=== PATIENT | male | born 1945 | race Caucasian/White ===

== ENCOUNTER → 2018-05-12 11:57 | Outpatient (CLI) | payer MEDICARE, OTHER, SELFPAY ==
--- NOTE | 2018-05-12 12:01 | DI.RAD.S_ITS ---
PROCEDURE: XR LUMBAR SPINE MIN 4V INDICATIONS: hip pain TECHNIQUE: 5 views of the lumbar spine were acquired. COMPARISON: None. FINDINGS: Bones: 5 nonrib-bearing vertebrae are present. There is normal bony alignment. No vertebral body compression fractures. No suspicious bony lesions. There is degenerative disc disease, moderate at L3-L4 and L4-L5, mild at other levels. There is moderate to severe facet arthropathy at L3-L4 and L4-L5 and L5-S1. Soft tissues: Overlying bowel gas pattern is normal. Extensive vascular calcifications consistent with atherosclerosis. Oblique images: No pars defects. IMPRESSION: 1. Degenerative disc and facet disease as described. 2. Severe atherosclerosis. Dictated by: Ankita Friedman M.D. on 05/12/2018 at 18:23 Approved by: Ankita Friedman M.D. on 05/12/2018 at 18:27
--- NOTE | 2018-05-12 12:01 | DI.RAD.S_ITS ---
PROCEDURE: XR HIP W PEL IF DONE RT 2V INDICATIONS: hip pain TECHNIQUE: AP pelvis with lateral view(s) of the right hip(s). COMPARISON: None. FINDINGS: Bones: No fractures or dislocations. Pelvic ring appears intact. There is mild, symmetric bilateral hip and sacroiliac joint degeneration. Moderate degenerative disc disease in the lower lumbar spine. No suspicious bony lesions. Soft tissues: The visualized bowel gas pattern is normal. No suspicious soft tissue calcifications. IMPRESSION: 1. 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 2. Degenerative disc disease in the lower lumbar spine. Dictated by: Ankita Friedman M.D. on 05/12/2018 at 17:33 Approved by: Ankita Friedman M.D. on 05/12/2018 at 17:35
== END ==
PROVIDERS: Family Provider Family Medicine; PCP Family Medicine; Visit Provider Family Medicine
DX: M16.0 Bilateral primary osteoarthritis of hip (principal); M51.36 Other intervertebral disc degeneration, lumbar region; M47.898 Other spondylosis, sacral and sacrococcygeal region; M25.551 Pain in right hip
CPT/HCPCS: 72110; 73502

== ENCOUNTER → 2018-05-31 08:05 | Outpatient (CLI) | payer MEDICARE, OTHER, SELFPAY ==
--- NOTE | 2018-05-31 08:07 | DI.CT.S_ITS ---
PROCEDURE: CT LUMBAR SPINE WO CON INDICATIONS: Right hip pain and instability TECHNIQUE: Noncontrast 3 mm thick sections acquired from the T12 level to the sacrum. Sagittal and coronal reformats were constructed. For radiation dose reduction, the following was used: automated exposure control. COMPARISON: [facility], CR, XR LUMBAR SPINE MIN 4V, 05/12/2018, 11:42. FINDINGS: Image quality: Excellent. Bones: There is mild retrolisthesis at L5-S1, otherwise normal bony alignment. No acute vertebral body compression fractures. No suspicious lytic or blastic bony lesions. Central spinal caliber is of normal overall caliber. No pars defects. Postoperative changes of remote left L5-S1 hemilaminotomy. T12-L1: Normal appearance L1-L2: Normal appearance L2-L3: Broad-based annular bulge. Bilateral facet arthropathy and ligamentous thickening, the combination creating moderate central canal stenosis, central diameter of the thecal sac and 9.2 mm. Mild bilateral foraminal stenosis. L3-L4: Broad-based annular bulge. Bilateral facet arthropathy with ligamentous thickening. The combination creates a moderate central canal stenosis, thecal sac at 6.7 mm. There is moderate bilateral foraminal stenosis. L4-L5: Disc degeneration with broad-based annular bulge. Bilateral facet arthropathy and ligamentous thickening. This creates a mild central canal stenosis with thecal sac measuring 11.1 mm. There is moderate left and mild right foraminal stenosis. L5-S1: Disc degeneration and mild retrolisthesis, left laminotomy decompressing the Central canal. No recurrent disc protrusion is seen. No compromise of the right S1 nerve root. There is mild deformity of the left S1 nerve root as it exits the thecal sac. Bilateral facet arthropathy. Mild bony stenosis of the nerve root canals bilaterally. Soft tissues: No retroperitoneal masses or hematomas. Visualized aorta is heavily calcified but normal in caliber. The partially visualized calculus in the upper pole of the left kidney. IMPRESSION: 1. Multilevel disc degeneration and annular bulging. Multilevel facet arthropathy with ligamentous thickening. Left laminotomy defect L5-S1. 2. Moderate central canal stenosis, L3-4 greater than L2-3. 3. Moderate foraminal stenosis is present bilaterally at L3-4 and on the left at L4-5. There appears to be mild bony encroachment on the left S1 nerve root. 4. Left nephrolithiasis. 5. Atherosclerosis. Dictated by: Edgardo Mccrary M.D. on 05/31/2018 at 8:48 Approved by: Edgardo Mccrary M.D. on 05/31/2018 at 9:06
== END ==
PROVIDERS: Family Provider Family Medicine; PCP Family Medicine; Visit Provider Family Medicine
DX: M25.551 Pain in right hip (principal); M25.351 Other instability, right hip; M51.36 Other intervertebral disc degeneration, lumbar region; M51.37 Other intervertebral disc degeneration, lumbosacral region; M47.816 Spondylosis without myelopathy or radiculopathy, lumbar region; M48.061 Spinal stenosis, lumbar region without neurogenic claudication; N20.0 Calculus of kidney; I70.0 Atherosclerosis of aorta
CPT/HCPCS: 72131

== ENCOUNTER → 2018-06-21 07:49 | Outpatient (CLI) | payer MEDICARE, OTHER, SELFPAY ==
[2018-06-21 09:10] LABS: Blood Urea Nitrogen 20 mg/dL (9-20); Calcium 9.8 mg/dL (8.4-10.2); Carbon Dioxide 28 mmol/L (22-32); Chloride 99 mmol/L (98-107); Estimated Glomerular Filt Rate > 60.0 mL/min (>60); Glucose 234 mg/dL (80-110); HEMOLYSIS < 15 (0-50); Magnesium 2.1 mg/dL (1.6-2.3); Potassium 4.5 mmol/L (3.4-5.1); Sodium 140 mmol/L (137-145)
== END ==
PROVIDERS: Family Provider Family Medicine; PCP Family Medicine; Visit Provider Internal Medicine Cardiovascular Disease
DX: I47.2 Ventricular tachycardia (principal)
CPT/HCPCS: 36415; 80048; 83735; 84443

== ENCOUNTER → 2018-12-23 09:43 | Outpatient (CLI) | payer MEDICARE, OTHER, SELFPAY ==
[2018-12-23 11:27] LABS: BUN Creatinine Ratio 17.3 (6-22); Blood Urea Nitrogen 19 mg/dL (9-20); Calcium 10.1 mg/dL (8.4-10.2); Carbon Dioxide 30 mmol/L (22-32); Chloride 99 mmol/L (98-107); Estimated Glomerular Filt Rate > 60.0 mL/min (>60); Glucose 147 mg/dL (80-110); HEMOLYSIS < 15 (0-50); Magnesium 2.1 mg/dL (1.6-2.3); Potassium 4.7 mmol/L (3.4-5.1); Sodium 139 mmol/L (137-145)
[2018-12-23 11:50] LABS: Thyroid Stimulating Hormone 1.63 uIU/mL (0.47-4.68)
== END ==
PROVIDERS: Family Provider Family Medicine; PCP Family Medicine; Visit Provider Internal Medicine Cardiovascular Disease
DX: I48.0 Paroxysmal atrial fibrillation (principal)
CPT/HCPCS: 36415; 80048; 83735; 84443

== ENCOUNTER 2019-03-09 08:30 | Outpatient (RCR) | payer MEDICARE, OTHER, SELFPAY | END 2019-03-13 15:00 | LOC: CAR 08:30 | PROVIDERS: Family Provider Family Medicine; PCP Family Medicine; Visit Provider Thoracic Surgery (Cardiothoracic Vascular Surgery) | DX: Z95.2 Presence of prosthetic heart valve (principal) | CPT/HCPCS: 93798 ==

== ENCOUNTER → 2019-08-04 08:25 | Outpatient (CLI) | payer MEDICARE, OTHER, SELFPAY ==
[2019-08-04 09:12] LABS: Add Manual Diff / Slide Review NO; Basophils Absolute Auto 100 /uL (0-100); Basophils Percent Auto 0.6 % (0-2); Eosinophils Absolute Auto 100 /uL (0-450); Eosinophils Percent Auto 0.6 % (2-4); Hematocrit 42.9 % (41-53); Hemoglobin 14.7 g/dL (13.5-17.5); Lymphocytes Absolute Auto 1600 /uL (1100-4500); Lymphocytes Percent Auto 17.3 % (25-40); Mean Corpuscular HGB Conc 34.4 % (30-36); Mean Corpuscular Hemoglobin 30.7 PG (26-34); Mean Corpuscular Volume 89.4 fL (80-100); Monocytes Absolute Auto 1000 /uL (0-900); Monocytes Percent Auto 11.5 % (3-14); Neutrophils Absolute Auto 6400 /uL (1500-7000); Platelet Count 138 X10^3/uL (150-400); Red Cell Distribution Width 14.5 % (11.6-14.8); White Blood Cell Count 9.1 X10^3/uL (4.5-11.0)
[2019-08-04 09:24] LABS: Cholesterol 124 mg/dL (140-199); HDL Cholesterol 38 mg/dL (40-60); LDL Cholesterol Calculated 48 mg/dL (<100); Triglycerides 192 mg/dL (35-150)
[2019-08-04 09:55] LABS: Prostate Specific Antigen Scrn 1.44 ng/mL (0.1-4.0)
== END ==
PROVIDERS: PCP Family Medicine; Visit Provider Family Medicine
DX: Z12.5 Encounter for screening for malignant neoplasm of prostate (principal); E78.5 Hyperlipidemia, unspecified; I10 Essential (primary) hypertension; I25.10 Atherosclerotic heart disease of native coronary artery without angina pectoris
CPT/HCPCS: 36415; 80061; 85025; G0103

== ENCOUNTER 2019-08-22 11:26 | Emergency (ER) | payer MEDICARE, OTHER, SELFPAY ==
[2019-08-22 11:31] VITALS: BP 157/85; PULSE 60; RESP 16; TEMP 36.4; O2SAT 99; BMI 29.9
--- NOTE | 2019-08-22 12:21 | ED.EPISTAXIS ---
HPI - Epistaxis <AYO Zapien - Last Filed: 08/22/19 15:34> General Chief complaint: Nasal Problem Stated complaint: nose bleed Time Seen by Provider: 08/22/19 11:37 Source: patient Mode of arrival: Ambulatory Limitations: no limitations History of Present Illness HPI Narrative: This is a 74-year-old gentleman, nonsmoker, who presents to ED with his spouse with resolved nontraumatic epistaxis which started at 8:45 a.m. this morning. Patient reports epistaxis started after he dabbed on his nose and he has been bleeding slowly. When patient arrived to ED shortly after 11:00 a.m., the nosebleed has already stopped. Patient states after he had blew his nose and got rid of large clots, the nose bleed finally stopped. He did not use direct pressure at this time. Patient has been on Eliquis 90 mg since 2017 due to his OR and cardiac surgeries. Patient is not taking any other anticoagulants or antiplatelets. Patient had lab test done on 08/04/19 and it showed mildly decreased platelet counts of 138. Patient denies chest pain, breathing difficulty, nausea, dizziness and swallowing blood from nose bleed. Related Data Home Medications Medication Instructions Recorded Confirmed multivitamin 1 cap PO DAILY #0 07/30/11 08/22/19 rosuvastatin [Crestor] 20 mg PO DAILY #0 03/16/12 08/22/19 Brilinta 90 mg PO BID #0 05/22/17 08/22/19 apixaban 5 mg tablet 5 mg PO BID 08/21/19 08/22/19 lisinopril 10 mg tablet 10 mg PO BID 08/21/19 08/22/19 NITROGLYCERIN (#NITROSTAT) 0.4 mg SUBLINGUAL PRN 08/22/19 08/22/19 chlorthalidone 12.5 mg PO Q OTHER DAY 08/22/19 08/22/19 fluorouracil 1 applic TOPICAL BID 08/22/19 08/22/19 magnesium 1 tab PO DAILY 08/22/19 08/22/19 metoprolol succinate 25 mg PO DAILY 08/22/19 08/22/19 Previous Rx's Medication Instructions Recorded adjuvant AS01B (PF)vial 1 of 2 0.5 ml IM .COMPLEX #0.5 ml 09/09/19 Allergies Allergy/AdvReac Type Severity Reaction Status Date / Time clopidogrel [From PLAVIX] Allergy Severe hosipitaliz Verified 08/22/19 11:31 ation procaine [PROCAINE] Allergy Mild NUMBNESS Verified 08/22/19 11:31 WILL NOT WEAR OFF PER PATIENT Review of Systems <AYO Zapien - Last Filed: 08/22/19 15:34> Review of Systems Narrative: General: Denies fever, chills, fatigue, malaise, sweats. HEENT: See HPI Respiratory: Denies dyspnea, cough, wheezing, hemoptysis, sputum. Cardiovascular: Denies chest pain, palpitations, orthopnea, edema. Gastrointestinal: Denies nausea, vomiting, abdominal pain, diarrhea, constipation, melena. : Denies dysuria, frequency, incontinence, hematuria, urinary retention. Musculoskeletal: Denies weakness, joint pain or bony pain. Skin: Denies rash, skin lesions, or other. Neurologic: Denies weakness, headache, numbness, change in speech, confusion, seizures, incoordination. Psychiatric: No concerning psychosocial issues. 12-point review of systems is negative except for those stated above. Patient History <AYO Zapien - Last Filed: 08/22/19 15:34> Social History Smoking Status: Never smoker Exam <AYO Zapien - Last Filed: 08/22/19 15:34> Narrative Exam Narrative: General appearance: well developed, well nourished, in no acute distress. Head: normocephalic, atraumatic, no scalp lesions, non-tender. Eye: pupil equal, round. EOMI. Oral: mucosa moist. Neck/Thyroid: neck supple, full range of motion, no visible masses. Skin: no suspicious rashes, lesions over visible areas. Warm and dry. Heart: no clubbing, no cyanosis, no edema. Lungs: Breathing even and unlabored. No stridor. No accessory muscles used. Chest: normal shape and expansion. Abdomen: non-obese, non-distended. Neurologic: alert and oriented. Cognitive exam, INTEGRATION [employer]GER and PNS grossly intact on informal exam. Psych: good eye contact, normal affect. Initial Vital Signs Initial Vital Signs: Vital Signs Temperature 97.5 F L 08/22/19 11:31 Pulse Rate 60 08/22/19 11:31 Respiratory Rate 16 08/22/19 11:31 Blood Pressure 157/85 H 08/22/19 11:31 Pulse Oximetry 99 08/22/19 11:31 HENMT Nose: external nose normal, nares normal, septum normal, epistaxis (Resolved. Small blood clots noted on right nares at 06 o'clock) and No nasal discharge <Neal Mosqueda DO - Last Filed: 08/22/19 15:46> Initial Vital Signs Initial Vital Signs: Vital Signs Temperature 97.5 F L 08/22/19 11:31 Pulse Rate 60 08/22/19 11:31 Respiratory Rate 16 08/22/19 11:31 Blood Pressure 157/85 H 08/22/19 11:31 Pulse Oximetry 99 08/22/19 11:31 Procedures <[facility] - Last Filed: 08/22/19 15:34> Epistaxis Control Time Out Performed: Yes Nostril: right Nose Prepped With: oxymetazoline Direct Inspection: yes and anterior source identified Clots Removed by: blowing nose Cautery Used: silver nitrate Patient Tolerated Procedure: well Complications: other (none) Scores <Uriel MYNOR BoxP - Last Filed: 08/22/19 15:34> GCS [place] coma scale eye opening: Spontaneous [place] coma scale verbal response: Orientated [place] coma scale motor response: Obey commands [place] coma scale total score: 15 Course <[facility] [place] Last Filed: 08/22/19 15:34> Orders Ordered: ED Orders 08/22/19 12:40 CBC Auto Diff [Complete Blood Count AUTO DIFF] Stat Discontinued Medications Oxymetazoline HCl (Afrin) 2 sprays NASAL NOW ONE Stop: 08/22/19 13:08 Last Admin: 08/22/19 13:19 Dose: 2 sprays Documented by: JOSE Silver Nitrate/Potassium Nitrate (Silver Nitrate Stick) 1 each TOP NOW ONE Stop: 08/22/19 13:15 Last Admin: 08/22/19 13:45 Dose: 1 each Documented by: JOSE Vital Signs Vital signs: Vital Signs - 8 hr 08/22/19 11:31 08/22/19 14:18 Temperature 97.5 F L Pulse Rate 60 58 L Respiratory Rate 16 18 Blood Pressure 157/85 H Blood Pressure [Right Arm] 162/73 H Pulse Oximetry 99 96 <Neal Mosqueda DO - Last Filed: 08/22/19 15:46> Orders Ordered: ED Orders 08/22/19 12:40 CBC Auto Diff [Complete Blood Count AUTO DIFF] Stat Discontinued Medications Oxymetazoline HCl (Afrin) 2 sprays NASAL NOW ONE Stop: 08/22/19 13:08 Last Admin: 08/22/19 13:19 Dose: 2 sprays Documented by: JOSE Silver Nitrate/Potassium Nitrate (Silver Nitrate Stick) 1 each TOP NOW ONE Stop: 08/22/19 13:15 Last Admin: 08/22/19 13:45 Dose: 1 each Documented by: JOSE Vital Signs Vital signs: Vital Signs - 8 hr 08/22/19 11:31 08/22/19 14:18 Temperature 97.5 F L Pulse Rate 60 58 L Respiratory Rate 16 18 Blood Pressure 157/85 H Blood Pressure [Right Arm] 162/73 H Pulse Oximetry 99 96 MDM - Epistaxis <AYO Zapien - Last Filed: 08/22/19 15:34> Differential Diagnosis Differential diagnosis: Likely anterior epistaxis Medical Records Attestation: I reviewed the patient's medical records. Lab Data Attestation: I reviewed the patient's lab results. Result diagrams: 08/22/19 12:40 Labs: Lab Results 08/22/19 Range/Units 12:40 WBC 8.2 (4.5-11.0) X10^3/uL RBC 4.50 (4.5-5.9) X10^6/uL Hgb 14.0 (13.5-17.5) g/dL Hct 39.9 L (41-53) % MCV 88.7 (80-100) fL MCH 31.1 (26-34) PG MCHC 35.0 (30-36) % RDW 13.6 (11.6-14.8) % Plt Count 138 L (150-400) X10^3/uL Neut % (Auto) 64.7 (50-75) % Lymph % (Auto) 22.9 L (25-40) % [place] % (Auto) 10.6 (3-14) % Eos % (Auto) 0.7 L (2-4) % Baso % (Auto) 1.1 (0-2) % Neut # (Auto) 5300 (8825-9605) /uL Lymph # (Auto) 1900 (9991-8710) /uL [place] # (Auto) 900 (0-900) /uL Eos # (Auto) 100 (0-450) /uL Baso # (Auto) 100 (0-100) /uL MDM Narrative Medical decision making narrative: This is a 74-year-old gentleman who presents to ED with right nares nontraumatic epistaxis which started at 8:45 a.m. this morning. Patient takes Brilinta and Eliquis daily after MIs, stents, aortic valve replacement. When patient was initially evaluated, the bleeding had resolved spontaneously. However, and patient was about to discharge to home and re-evaluated, patient had recurring very slow nose bleed. Nose bleed had controlled with silver nitrate and Afrin. Please see procedural note. Patient tolerated the procedure well and no further nose bleed noticed post 30 minutes. CBC shows stable H&H but slightly decreased platelet of 138 which has not changed from 2 weeks ago. Discussed how to stop nose bleed at home and verbalized understanding. Return precautions were discussed with patient and spouse and agrees with treatment plan. <Neal Mosqueda, DO - Last Filed: 08/22/19 15:46> Lab Data Labs: Lab Results 08/22/19 Range/Units 12:40 WBC 8.2 (4.5-11.0) X10^3/uL RBC 4.50 (4.5-5.9) X10^6/uL Hgb 14.0 (13.5-17.5) g/dL Hct 39.9 L (41-53) % MCV 88.7 (80-100) fL MCH 31.1 (26-34) PG MCHC 35.0 (30-36) % RDW 13.6 (11.6-14.8) % Plt Count 138 L (150-400) X10^3/uL Neut % (Auto) 64.7 (50-75) % Lymph % (Auto) 22.9 L (25-40) % [place] % (Auto) 10.6 (3-14) % Eos % (Auto) 0.7 L (2-4) % Baso % (Auto) 1.1 (0-2) % Neut # (Auto) 5300 (1881-8387) /uL Lymph # (Auto) 1900 (4555-2948) /uL [place] # (Auto) 900 (0-900) /uL Eos # (Auto) 100 (0-450) /uL Baso # (Auto) 100 (0-100) /uL Discharge Plan Departure Patient Disposition: Home Clinical Impression: Epistaxis not due to trauma Discharge Date/Time: 08/22/19 14:30 Instructions: DI for Nosebleed Activity Restrictions/Additional Instructions: You have been diagnosed with [resolved nose bleed on anticoagulants Brilinta and Eliquis. If nosebleed recurs, blow your nose 1st to remove the clots, then put direct pressure for about 30-60 minutes. If you do have Afrin, you can use 2 sprays before applying the pressure. Do not use over 72 hrs of Afrin. The blood count today looks good and there's no change in platelets]. What to do: *Take your medications as directed. *Follow up with your primary care provider in 2-3 days, call for an appointment. Let them know you were seen in the ED and that we asked you to be seen in follow up. *Return to ED if you have any new, worsening, or concerning symptoms, such as [recurring severe nosebleed, chest pain, breathing difficulty, unable to tolerate fluids, or any acute concerns]. Prescriptions: No Action multivitamin Capsule 1 cap PO DAILY Qty: 0 RF: 0 rosuvastatin [Crestor] 20 MG tablet 20 mg PO DAILY Qty: 0 RF: 0 Brilinta 90 MG tablet 90 mg PO BID Qty: 0 RF: 0 Shingrix Adjuvant Component-PF suspension 0.5 ml IM .COMPLEX Qty: 0.5 RF: 0 Eliquis 5 mg tablet 5 mg PO BID RF: 0 lisinopril 10 mg tablet 10 mg PO BID RF: 0 magnesium 1 tab PO DAILY RF: 0 fluorouracil 5 % Cream 1 applic TOPICAL BID RF: 0 chlorthalidone 25 mg Tablet 12.5 mg PO Q OTHER DAY RF: 0 metoprolol succinate 25 mg Tablet Extended Release 24 Hr 25 mg PO DAILY RF: 0 NITROGLYCERIN (#NITROSTAT) 0.4 mg Sublingual PRN RF: 0 Referrals: Yonis Unger MD [Primary Care Provider] - <Neal Mosqueda DO - Last Filed: 08/22/19 15:46> Sign Out Provider Sign Out Attestation: Dr Mosqueda Co-Sign Statement: I was available for consultation during this patient's emergency department visit. This chart is signed by myself for administrative purposes only. I did not have direct contact with this patient during this visit. They were seen independently by the APC.
[2019-08-22 12:50] LABS: Add Manual Diff / Slide Review NO; Basophils Absolute Auto 100 /uL (0-100); Basophils Percent Auto 1.1 % (0-2); Eosinophils Absolute Auto 100 /uL (0-450); Eosinophils Percent Auto 0.7 % (2-4); Hematocrit 39.9 % (41-53); Lymphocytes Absolute Auto 1900 /uL (1100-4500); Lymphocytes Percent Auto 22.9 % (25-40); Mean Corpuscular Hemoglobin 31.1 PG (26-34); Mean Corpuscular Volume 88.7 fL (80-100); Monocytes Absolute Auto 900 /uL (0-900); Monocytes Percent Auto 10.6 % (3-14); Neutrophils Absolute Auto 5300 /uL (1500-7000); Neutrophils Percent Auto 64.7 % (50-75); Platelet Count 138 X10^3/uL (150-400); Red Cell Distribution Width 13.6 % (11.6-14.8); White Blood Cell Count 8.2 X10^3/uL (4.5-11.0)
[2019-08-22] MEDS: OXYMETAZOLINE NASAL SPRAY 30 ML 2 SPRAYS NASAL (13:19)
[2019-08-22] MEDS: SILVER NITRATE STICK 1 EACH TOP (13:45)
[2019-08-22 14:18] VITALS: BP 162/73; PULSE 58; RESP 18; O2SAT 96
== END 2019-08-22 14:30 | disposition home or self-care (01) ==
PROVIDERS: Emergency Provider Nurse Practitioner Family; PCP Family Medicine
DX: R04.0 Epistaxis (principal)
CPT/HCPCS: 30901; 36415; 85025; 99282; 99283

== ENCOUNTER → 2020-05-24 08:26 | Outpatient (CLI) | payer MEDICARE, OTHER, SELFPAY ==
[2020-05-24 09:42] LABS: Add Manual Diff / Slide Review NO; Basophils Absolute Auto 100 /uL (0-100); Basophils Percent Auto 0.7 % (0-2); Eosinophils Absolute Auto 100 /uL (0-450); Eosinophils Percent Auto 0.9 % (2-4); Hematocrit 41.4 % (41-53); Hemoglobin 14.3 g/dL (13.5-17.5); Lymphocytes Absolute Auto 1800 /uL (1100-4500); Lymphocytes Percent Auto 24.6 % (25-40); Mean Corpuscular HGB Conc 34.5 % (30-36); Mean Corpuscular Hemoglobin 30.7 PG (26-34); Monocytes Absolute Auto 700 /uL (0-900); Neutrophils Absolute Auto 4600 /uL (1500-7000); Neutrophils Percent Auto 63.8 % (50-75); Platelet Count 146 X10^3/uL (150-400); Red Blood Cell Count 4.65 X10^6/uL (4.5-5.9); Red Cell Distribution Width 13.8 % (11.6-14.8); White Blood Cell Count 7.3 X10^3/uL (4.5-11.0)
[2020-05-24 10:01] LABS: BUN Creatinine Ratio 21.4 (6-22); Blood Urea Nitrogen 21 mg/dL (9-20); Carbon Dioxide 31 mmol/L (22-32); Chloride 102 mmol/L (98-107); Estimated Glomerular Filt Rate > 60.0 mL/min (>60); Glucose 117 mg/dL (80-110); HEMOLYSIS < 15 (0-50); Potassium 4.9 mmol/L (3.4-5.1); Sodium 139 mmol/L (137-145)
[2020-05-24 10:21] LABS: Alanine Aminotransferase 46 IU/L (<50); Albumin 4.7 g/dL (3.5-5.0); Alkaline Phosphatase 63 U/L (38-126); Aspartate Aminotransferase 36 IU/L (17-59); Bilirubin Total 0.8 mg/dL (0.2-1.3); Bilirubin Unconjugated 0.7 mg/dL (0.0-1.1); Cholesterol 127 mg/dL (140-199); Globulin 2.3 g/dL (1.7-4.1); HDL Cholesterol 39 mg/dL (40-60); HEMOLYSIS < 15 (0-50); LDL Cholesterol Calculated 40 mg/dL (<100); Triglycerides 241 mg/dL (35-150)
== END ==
PROVIDERS: Nurse Practitioner; PCP Family Medicine
DX: I35.1 Nonrheumatic aortic (valve) insufficiency (principal); I35.0 Nonrheumatic aortic (valve) stenosis; Z95.2 Presence of prosthetic heart valve; E78.5 Hyperlipidemia, unspecified; I25.10 Atherosclerotic heart disease of native coronary artery without angina pectoris
CPT/HCPCS: 36415; 80048; 80061; 80076; 85025

== ENCOUNTER → 2020-06-15 09:40 | Outpatient (CLI) | payer MEDICARE, OTHER, SELFPAY ==
[2020-06-16 18:55] LABS: COVID19 Sendout Not Detected (Not Detect)
== END ==
PROVIDERS: PCP Family Medicine; Visit Provider Nurse Practitioner
DX: Z11.59 Encounter for screening for other viral diseases (principal)
CPT/HCPCS: 87635

== ENCOUNTER 2020-06-18 07:45 | Day surgery (SDC) | payer MEDICARE, OTHER, SELFPAY ==
[2020-06-18] MEDS: PROPARACAINE 0.5% OPHTH SOL 2 DROPS EYE-OP (09:10)
[2020-06-18 09:14] VITALS: BP 159/67; PULSE 61; RESP 16; TEMP 36.2; O2SAT 98; BMI 28.7
[2020-06-18] MEDS: CATARACT EYE COMPOUND (10 DROPS/SYRINGE) 3 DROPS EYE-OP (09:25)
--- NOTE | 2020-06-18 09:43 | P.OP_ITS ---
Operative Date/Time/Diagnoses Pre-op diagnosis: Nuclear Cataract Left eye Post-op diagnosis: same Procedure & Clinicians Same procedure as scheduled: Yes Surgeon: Tato Gayle Anesthesia Type: MAC +/- and Sedation Operative Notes Procedure in detail: Patient brought to the operating suite. Tetracaine drops placed in the left eye. Patient was prepped and draped in sterile manner. Wire lid speculum was placed in the eye. Betadine drops were placed on the eye. This was irrigated. Lidocaine jelly was placed on the eye. A paracentesis port was created with a side-port blade. 0.1 mL 1% preservative free lidocaine was injected into the anterior chamber. The anterior chamber was deepened with viscoelastic. 2.6 mm keratome was used to create a temporal clear corneal incision. Cystotome and Utrata forceps were used to create continuous tear capsulorrhexis. Balanced salt solution was used to hydro dissect the nucleus. The phacoemulsification handpiece was inserted and the nucleus was removed using the stop and chop technique. The irrigation aspiration handpiece was inserted and the remaining cortex was removed. Anterior chamber was deepened with viscoe lastic. An Shukla ZCB00 intraocular lens with a power of 19.0 was injected into the capsular bag. Irrigation aspiration handpiece was inserted and the remaining viscoelastic was removed. Incision was hydrated with balanced salt solution and found to be leak free with pressure with Weck-Paula sponges. 0.1 mL Vigamox injected anterior chamber. 0.3 mL Kenalog 10 mg was injected subconjunctivally. Lid speculum was removed. The patient left the operating room in excellent condition. Complications: none Post-operative Condition: stable Disposition: same day surgery
--- NOTE | 2020-06-18 09:43 | PM.PREOP ---
Pre-operative Note Interval Note History & Physical reviewed/Exam performed by Physician: Yes Changes to H&P: No
[2020-06-18] MEDS: MOXIFLOXACIN INJ 5 MG/ML VIAL EYE-OP (10:11)
[2020-06-18] MEDS: PHENYLEPHRINE/LIDOCAINE VIAL (OR) 0.2 ML EYE-OP (10:11)
[2020-06-18] MEDS: LIDOCAINE JELLY 2% 5 ML 1 APPLIC TOP (10:12)
[2020-06-18] MEDS: CHONDROIDTIN/SOD HYALURONATE 1.05 ML SYRINGE INTRAOCULA (10:12)
[2020-06-18] MEDS: TETRACAINE 0.5% OPHTH DROPS 4 ML 2 DROPS EYE-OP (10:12)
[2020-06-18] MEDS: TRIAMCINOLONE 50 MG/5 ML VIAL INJ (10:12)
[2020-06-18] MEDS: BALANCED SALT IRRIG SOLN NO.2 500 ML, EPINEPHrine 1 MG IRR (10:13)
[2020-06-18 10:30] VITALS: BP 109/70; PULSE 60; RESP 16; TEMP 36.4; O2SAT 99
== END 2020-06-18 10:45 | disposition home or self-care (01) ==
PROVIDERS: PCP Family Medicine; Referring Provider Ophthalmology; Visit Provider Ophthalmology
PROC: (CPT 66984; principal; 2020-06-18 09:45)
DX: H25.12 Age-related nuclear cataract, left eye (principal); I10 Essential (primary) hypertension; Z95.0 Presence of cardiac pacemaker; I25.10 Atherosclerotic heart disease of native coronary artery without angina pectoris; Z95.1 Presence of aortocoronary bypass graft
CPT/HCPCS: 66984; J0171; J2250; J3010; J3301

== ENCOUNTER 2021-03-03 19:09 | Emergency (ER) | payer MEDICARE, OTHER, SELFPAY ==
[2021-03-03 19:14] VITALS: BP 156/69; PULSE 66; RESP 20; TEMP 38.1; O2SAT 98; BMI 27.6
[2021-03-03 20:01] VITALS: PULSE 67; O2SAT 96
[2021-03-03] MEDS: ACETAMINOPHEN 325 MG TABLET 650 MG PO (20:06)
[2021-03-03 20:30] VITALS: BP 137/89; PULSE 64; RESP 20; O2SAT 99
[2021-03-03 20:59] LABS: COVID19 -Nasal RAPID Negative (Negative)
[2021-03-03 21:18] VITALS: TEMP 36.9
[2021-03-03 21:20] LABS: Bacteria Urine None Seen
[2021-03-03 21:28] LABS: INR 1.4 (0.9-1.3); Prothrombin Time 16.1 SECONDS (10.1-12.7)
[2021-03-03 21:29] LABS: Add Manual Diff / Slide Review NO; Basophils Absolute Auto 0 /uL (0-100); Basophils Percent Auto 0.3 % (0-2); Eosinophils Absolute Auto 0 /uL (0-450); Eosinophils Percent Auto 0.5 % (2-4); Hematocrit 30.6 % (41-53); Hemoglobin 10.4 g/dL (13.5-17.5); Lymphocytes Absolute Auto 600 /uL (1100-4500); Lymphocytes Percent Auto 7.7 % (25-40); Mean Corpuscular HGB Conc 34.1 % (30-36); Mean Corpuscular Hemoglobin 30.4 PG (26-34); Mean Corpuscular Volume 89.2 fL (80-100); Monocytes Absolute Auto 900 /uL (0-900); Monocytes Percent Auto 10.5 % (3-14); Neutrophils Absolute Auto 6800 /uL (1500-7000); Platelet Count 182 X10^3/uL (150-400); Red Blood Cell Count 3.43 X10^6/uL (4.5-5.9); Red Cell Distribution Width 15.2 % (11.6-14.8); White Blood Cell Count 8.4 X10^3/uL (4.5-11.0)
[2021-03-03 21:31] LABS: PTT Partial Thromboplastin Tim 32 SECONDS (26.4-36.2)
[2021-03-03 21:33] LABS: Lactate (Lactic Acid) 1.5 mmol/L (0.7-2.1)
[2021-03-03 21:34] LABS: Alanine Aminotransferase 118 IU/L (<50); Albumin 3.7 g/dL (3.5-5.0); Albumin Globulin Ratio 1.2 (1.0-2.8); Alkaline Phosphatase 87 U/L (38-126); Aspartate Aminotransferase 69 IU/L (17-59); BUN Creatinine Ratio 25.5 (6-22); Bilirubin Total 0.4 mg/dL (0.2-1.3); Blood Urea Nitrogen 25 mg/dL (9-20); Calcium 9.3 mg/dL (8.4-10.2); Carbon Dioxide 28 mmol/L (22-32); Chloride 98 mmol/L (98-107); Estimated Glomerular Filt Rate > 60.0 mL/min (>60); Glucose 115 mg/dL (80-110); HEMOLYSIS < 15 (0-50); Lipase 131 U/L (23-300); Potassium 4.5 mmol/L (3.4-5.1); Sodium 133 mmol/L (137-145); Total Protein 6.7 g/dL (6.3-8.2)
[2021-03-03 21:35] LABS: Appearance Urine UA CLEAR; Bilirubin Urine UA NEGATIVE (NEGATIVE); Color Urine UA YELLOW; Glucose Urine UA NEGATIVE (Negative); Ketones Urine UA NEGATIVE (NEGATIVE); Leukocyte Esterase Urine UA NEGATIVE (NEGATIVE); Nitrite Urine UA NEGATIVE (Negative); Occult Blood Urine UA 1+ (Negative); Protein Urine UA NEGATIVE (Negative); Specific Gravity Urine UA 1.025 (1.000-1.035); Urobilinogen Urine UA 0.2 E.U./dL (0.2); pH Urine UA 5.5 (4.5-8.0)
[2021-03-03 21:51] LABS: Procalcitonin 0.31 ng/mL (<0.5)
[2021-03-03 21:57] LABS: Adenovirus Not Detected (Not Detect); B. parapertussis Not Detected (Not Detecte); Bordetella pertussis Not Detected (Not Detecte); Chlamydophila pneumoniae Not Detected (Not Detect); Coronavirus 229E Not Detected (Not Detect); Coronavirus HKU1 Not Detected (Not Detect); Coronavirus NL 63 Not Detected (Not Detect); Coronavirus OC43 Not Detected (Not Detect); Human Metapneumovirus Not Detected (Not Detect); Human Rhinovirus/Enterovirus Not Detected (Not Detect); Influenza A Not Detected (Not Detect); Influenza B Not Detected (Not Detect); Mycoplasma pneumoniae Not Detected (Not Detect); Parainfluenza Virus 1 Not Detected (Not Detect); Parainfluenza Virus 2 Not Detected (Not Detect); Parainfluenza Virus 3 Not Detected (Not Detect); Parainfluenza Virus 4 Not Detected (Not Detect); Respiratory Syncytial Virus Not Detected (Not Detect); SARS- CoV-2 Not Detected (Not Detecte)
[2021-03-03 22:02] LABS: Culture Indicated Urine Cult Not Indicated; RBC Urine 1-5/HPF (0-5/HPF); Sperm Urine FEW; WBC Urine 0-1/HPF (0-5/HPF)
--- NOTE | 2021-03-03 22:20 | ED.FEVER ---
HPI - Fever General Chief Complaint: Upper Respiratory Symptoms Stated Complaint: Fever, Tired, Congestion, Cough, Chills Time Seen by Provider: 03/03/21 21:44 Source: patient and old records reviewed Mode of arrival: Ambulatory Limitations: no limitations History of Present Illness HPI Narrative: This is a 75-year-old male who has had about a month of symptoms, initially start with some headaches he was treated for sinus infection with antibiotics. He has continued to have some mild headaches but he states they are quite mild. He has had increasing sleep, decreased appetite, lost about 10 lb over the last couple weeks. Had some mild congestion and cough he has had a little bit of productive sputum. Patient has not had any diaphoresis. He has not any chest pain or pressure, no shortness of breath. No abdominal pain. No dysuria, urgency or frequency. He is not appreciate any changes such as diarrhea, bright red blood or melena. He is not appreciate any rash or skin changes. He states that there is a test to check for infection pending such as valley fever patient was seen at the walk-in clinic and sent for evaluation here. History significant for TAVR placed in 2019 a pacer in 2018. He has had a melanoma excised on his in 2018 and has cardiac stents. His only allergies are Plavix. No tobacco, occasional alcohol with no illicit. He divides his time between [place] and here locally in [place]. Patient does have a follow-up on March 14 with his primary care. His family notes that he they were told he was anemic on his last doctor's visit. Patient is slightly requesting to leave. Related Data Home Medications Medication Instructions Recorded Confirmed multivitamin 1 cap PO DAILY #0 07/30/11 03/03/21 rosuvastatin [Crestor] 20 mg PO DAILY #0 03/16/12 03/03/21 Brilinta 90 mg PO BID #0 05/22/17 03/03/21 apixaban 5 mg tablet 5 mg PO BID 08/21/19 03/03/21 lisinopril 10 mg tablet 10 mg PO BID 08/21/19 03/03/21 NITROGLYCERIN (#NITROSTAT) 0.4 mg SUBLINGUAL PRN 08/22/19 03/03/21 chlorthalidone 12.5 mg PO Q OTHER DAY 08/22/19 03/03/21 fluorouracil 1 applic TOPICAL BID 08/22/19 03/03/21 magnesium 1 tab PO DAILY 08/22/19 03/03/21 metoprolol succinate 25 mg PO DAILY 08/22/19 03/03/21 furosemide [Lasix] 20 mg PO DAILY 06/18/20 03/03/21 Previous Rx's Medication Instructions Recorded adjuvant AS01B (PF)vial 1 of 2 0.5 ml IM .COMPLEX #0.5 ml 07/03/19 Allergies Allergy/AdvReac Type Severity Reaction Status Date / Time clopidogrel [From PLAVIX] Allergy Severe hosipitaliz Verified 03/03/21 09:44 ation procaine [PROCAINE] Allergy Mild NUMBNESS Verified 03/03/21 09:44 WILL NOT WEAR OFF PER PATIENT Review of Systems Review of Systems ROS Unobtainable: All systems reviewed & are unremarkable except as noted in HPI and below Patient History Social History household members: spouse Smoking Status: Former smoker alcohol intake: current Smoking Status: Former smoker alcohol intake frequency: a few times a week Substance Use Type: does not use Exam Narrative Exam Narrative: GENERAL: Alert and oriented x three, well-nourished male in mild distress. HEENT: Head normocephalic, atraumatic, EOMI, pupils reactive, face symmetric, moist mucous membranes, no meningeal changes. NECK: Supple, full range of motion, no meningeal signs CARDIOVASCULAR: Regular rate and rhythm without murmurs, rubs or gallops. RESPIRATORY: Breath sounds equal bilaterally, no wheezes rales or rhonchi. ABDOMEN: Soft, nontender. Normoactive bowel sounds all 4 quadrants. No guarding or rebound, rigidity, no mass : No CVA tenderness BACK: No cervical, thoracic or lumbar vertebral point tenderness. EXTREMITIES: Normal range of motion of all 4 extremities, no clubbing or edema. Neurovascularly intact NEUROLOGICAL: Cranial nerves II through XII grossly intact. Moving all extremities. Normal gait. SKIN: Warm, dry, no petechiae, no rashes or lesions. Initial Vital Signs Initial Vital Signs: Vital Signs Temperature 100.5 F H 03/03/21 19:14 Pulse Rate 66 03/03/21 19:14 Respiratory Rate 20 03/03/21 19:14 Blood Pressure 156/69 H 03/03/21 19:14 Pulse Oximetry 98 03/03/21 19:14 Scores GCS Magness coma scale eye opening: Spontaneous Magness coma scale verbal response: Orientated Magness coma scale motor response: Obey commands Magness coma scale total score: 15 Course Orders Ordered: Discontinued Medications Acetaminophen (Acetaminophen 325 Mg Tablet) 650 mg PO NOW ONE Stop: 03/03/21 19:52 Last Admin: 03/03/21 20:06 Dose: 650 mg Documented by: LYNDA Vital Signs Vital signs: Vital Signs - 8 hr 03/03/21 23:20 Temperature 97.6 F Pulse Rate 60 Respiratory Rate 18 Blood Pressure 137/89 Pulse Oximetry 100 MDM - Fever Lab Data Attestation: I reviewed the patient's lab results. Result diagrams: 03/03/21 20:50 03/03/21 20:50 Labs: Lab Results 03/03/21 03/03/21 03/03/21 Range/Units 19:21 19:58 20:50 WBC 8.4 (4.5-11.0) X10^3/uL RBC 3.43 L (4.5-5.9) X10^6/uL Hgb 10.4 L (13.5-17.5) g/dL Hct 30.6 L (41-53) % MCV 89.2 (80-100) fL MCH 30.4 (26-34) PG MCHC 34.1 (30-36) % RDW 15.2 H (11.6-14.8) % Plt Count 182 (150-400) X10^3/uL Neut % (Auto) 81.0 H (50-75) % Lymph % (Auto) 7.7 L (25-40) % [place] % (Auto) 10.5 (3-14) % Eos % (Auto) 0.5 L (2-4) % Baso % (Auto) 0.3 (0-2) % Neut # (Auto) 6800 (4084-3184) /uL Lymph # (Auto) 600 L (2962-5688) /uL [place] # (Auto) 900 (0-900) /uL Eos # (Auto) 0 (0-450) /uL Baso # (Auto) 0 (0-100) /uL PT (10.1-12.7) SECONDS INR (0.9-1.3) APTT (26.4-36.2) SECONDS Sodium (137-145) mmol/L Potassium (3.4-5.1) mmol/L Chloride (98-107) mmol/L Carbon Dioxide (22-32) mmol/L BUN (9-20) mg/dL Creatinine (0.66-1.25) mg/dL Estimated GFR (>60) mL/min BUN/Creatinine Ratio (6-22) Glucose (80-110) mg/dL Lactate (0.7-2.1) mmol/L Calcium (8.4-10.2) mg/dL Total Bilirubin (0.2-1.3) mg/dL AST (17-59) IU/L ALT (<50) IU/L Alkaline Phosphatase (38-126) U/L Total Protein (6.3-8.2) g/dL Albumin (3.5-5.0) g/dL Globulin (1.7-4.1) g/dL Albumin/Globulin Ratio (1.0-2.8) Lipase (23-300) U/L Procalcitonin (<0.5) ng/mL Urine Color Urine Appearance Urine pH (4.5-8.0) Ur Specific [place] (1.000-1.035) Urine Protein (Negative) Urine Glucose (UA) (Negative) g/dL Urine Ketones (NEGATIVE) Urine Occult Blood (Negative) Urine Nitrate (Negative) Urine Bilirubin (NEGATIVE) Urine Urobilinogen (0.2) E.U./dL Ur Leukocyte Esterase (NEGATIVE) Urine RBC (0-5/HPF) Urine WBC (0-5/HPF) Urine Bacteria (None) Urine Sperm Ur Culture Indicated? Chlamy pneumoniae PCR Not detected (Not Detect) Adenovirus (PCR) Not detected (Not Detect) B. pertussis DNA (PCR) Not detected (Not Detecte) B.parapertussis DNA PCR Not detected (Not Detecte) Coronavirus OC43 (PCR) Not detected (Not Detect) Coronavirus HKU1 (PCR) Not detected (Not Detect) Coronavirus 229E (PCR) Not detected (Not Detect) SARS-CoV-2 (PCR) Negative Not detected (Negative) Coronavirus NL63 (PCR) Not detected (Not Detect) Human Metapneumovir PCR Not detected (Not Detect) Influenza Type A (PCR) Not detected (Not Detect) Influenza Type B (PCR) Not detected (Not Detect) M. pneumoniae (PCR) Not detected (Not Detect) Parainfluenza 1 (PCR) Not detected (Not Detect) Parainfluenza 2 (PCR) Not detected (Not Detect) Parainfluenza 3 (PCR) Not detected (Not Detect) Parainfluenza 4 (PCR) Not detected (Not Detect) RSV (PCR) Not detected (Not Detect) Entero/Rhino (PCR) Not detected (Not Detect) 03/03/21 03/03/21 03/03/21 Range/Units 20:50 20:50 20:50 WBC (4.5-11.0) X10^3/uL RBC (4.5-5.9) X10^6/uL Hgb (13.5-17.5) g/dL Hct (41-53) % MCV (80-100) fL MCH (26-34) PG MCHC (30-36) % RDW (11.6-14.8) % Plt Count (150-400) X10^3/uL Neut % (Auto) (50-75) % Lymph % (Auto) (25-40) % [place] % (Auto) (3-14) % Eos % (Auto) (2-4) % Baso % (Auto) (0-2) % Neut # (Auto) (8062-2513) /uL Lymph # (Auto) (1683-6917) /uL [place] # (Auto) (0-900) /uL Eos # (Auto) (0-450) /uL Baso # (Auto) (0-100) /uL PT 16.1 H (10.1-12.7) SECONDS INR 1.4 H (0.9-1.3) APTT 32 (26.4-36.2) SECONDS Sodium 133 L (137-145) mmol/L Potassium 4.5 (3.4-5.1) mmol/L Chloride 98 (98-107) mmol/L Carbon Dioxide 28 (22-32) mmol/L BUN 25 H (9-20) mg/dL Creatinine 0.98 (0.66-1.25) mg/dL Estimated GFR > 60.0 (>60) mL/min BUN/Creatinine Ratio 25.5 H (6-22) Glucose 115 H (80-110) mg/dL Lactate 1.5 (0.7-2.1) mmol/L Calcium 9.3 (8.4-10.2) mg/dL Total Bilirubin 0.4 (0.2-1.3) mg/dL AST 69 H (17-59) IU/L ALT 118 H (<50) IU/L Alkaline Phosphatase 87 (38-126) U/L Total Protein 6.7 (6.3-8.2) g/dL Albumin 3.7 (3.5-5.0) g/dL Globulin 3.0 (1.7-4.1) g/dL Albumin/Globulin Ratio 1.2 (1.0-2.8) Lipase 131 (23-300) U/L Procalcitonin 0.31 (<0.5) ng/mL Urine Color Urine Appearance Urine pH (4.5-8.0) Ur Specific [place] (1.000-1.035) Urine Protein (Negative) Urine Glucose (UA) (Negative) g/dL Urine Ketones (NEGATIVE) Urine Occult Blood (Negative) Urine Nitrate (Negative) Urine Bilirubin (NEGATIVE) Urine Urobilinogen (0.2) E.U./dL Ur Leukocyte Esterase (NEGATIVE) Urine RBC (0-5/HPF) Urine WBC (0-5/HPF) Urine Bacteria (None) Urine Sperm Ur Culture Indicated? Chlamy pneumoniae PCR (Not Detect) Adenovirus (PCR) (Not Detect) B. pertussis DNA (PCR) (Not Detecte) B.parapertussis DNA PCR (Not Detecte) Coronavirus OC43 (PCR) (Not Detect) Coronavirus HKU1 (PCR) (Not Detect) Coronavirus 229E (PCR) (Not Detect) SARS-CoV-2 (PCR) (Negative) Coronavirus NL63 (PCR) (Not Detect) Human Metapneumovir PCR (Not Detect) Influenza Type A (PCR) (Not Detect) Influenza Type B (PCR) (Not Detect) M. pneumoniae (PCR) (Not Detect) Parainfluenza 1 (PCR) (Not Detect) Parainfluenza 2 (PCR) (Not Detect) Parainfluenza 3 (PCR) (Not Detect) Parainfluenza 4 (PCR) (Not Detect) RSV (PCR) (Not Detect) Entero/Rhino (PCR) (Not Detect) 03/03/21 Range/Units 21:17 WBC (4.5-11.0) X10^3/uL RBC (4.5-5.9) X10^6/uL Hgb (13.5-17.5) g/dL Hct (41-53) % MCV (80-100) fL MCH (26-34) PG MCHC (30-36) % RDW (11.6-14.8) % Plt Count (150-400) X10^3/uL Neut % (Auto) (50-75) % Lymph % (Auto) (25-40) % [place] % (Auto) (3-14) % Eos % (Auto) (2-4) % Baso % (Auto) (0-2) % Neut # (Auto) (4617-7811) /uL Lymph # (Auto) (6379-4947) /uL [place] # (Auto) (0-900) /uL Eos # (Auto) (0-450) /uL Baso # (Auto) (0-100) /uL PT (10.1-12.7) SECONDS INR (0.9-1.3) APTT (26.4-36.2) SECONDS Sodium (137-145) mmol/L Potassium (3.4-5.1) mmol/L Chloride (98-107) mmol/L Carbon Dioxide (22-32) mmol/L BUN (9-20) mg/dL Creatinine (0.66-1.25) mg/dL Estimated GFR (>60) mL/min BUN/Creatinine Ratio (6-22) Glucose (80-110) mg/dL Lactate (0.7-2.1) mmol/L Calcium (8.4-10.2) mg/dL Total Bilirubin (0.2-1.3) mg/dL AST (17-59) IU/L ALT (<50) IU/L Alkaline Phosphatase (38-126) U/L Total Protein (6.3-8.2) g/dL Albumin (3.5-5.0) g/dL Globulin (1.7-4.1) g/dL Albumin/Globulin Ratio (1.0-2.8) Lipase (23-300) U/L Procalcitonin (<0.5) ng/mL Urine Color Yellow Urine Appearance Clear Urine pH 5.5 (4.5-8.0) Ur Specific [place] 1.025 (1.000-1.035) Urine Protein Negative (Negative) Urine Glucose (UA) Negative (Negative) g/dL Urine Ketones Negative (NEGATIVE) Urine Occult Blood 1+ H (Negative) Urine Nitrate Negative (Negative) Urine Bilirubin Negative (NEGATIVE) Urine Urobilinogen 0.2 (0.2) E.U./dL Ur Leukocyte Esterase Negative (NEGATIVE) Urine RBC 1-5/hpf (0-5/HPF) Urine WBC 0-1/hpf (0-5/HPF) Urine Bacteria None seen (None) Urine Sperm Few Ur Culture Indicated? Cult not indicated Chlamy pneumoniae PCR (Not Detect) Adenovirus (PCR) (Not Detect) B. pertussis DNA (PCR) (Not Detecte) B.parapertussis DNA PCR (Not Detecte) Coronavirus OC43 (PCR) (Not Detect) Coronavirus HKU1 (PCR) (Not Detect) Coronavirus 229E (PCR) (Not Detect) SARS-CoV-2 (PCR) (Negative) Coronavirus NL63 (PCR) (Not Detect) Human Metapneumovir PCR (Not Detect) Influenza Type A (PCR) (Not Detect) Influenza Type B (PCR) (Not Detect) M. pneumoniae (PCR) (Not Detect) Parainfluenza 1 (PCR) (Not Detect) Parainfluenza 2 (PCR) (Not Detect) Parainfluenza 3 (PCR) (Not Detect) Parainfluenza 4 (PCR) (Not Detect) RSV (PCR) (Not Detect) Entero/Rhino (PCR) (Not Detect) Urine Dip Bedside Urine Glucose Negative Bedside Urine Bilirubin - Negative Bedside Urine Ketone - Negative Urine Specific [place] 1.030 Bedside Urine Occult Blood +/- Bedside Urine pH 6 Bedside Urine Protein - Negative Bedside Urine Urobilinogen - Negative Bedside Urine Nitrite - Negative Bedside Urine Leukocytes - Negative Esterase Imaging Data Chest x-ray: Radiologist's Impression: [address] [id number] ReportSigned Patient: Jesse Dietz RMR#: [id number]: 3Acct:[id number]/Sex: 75 / MDate of Service: 03/03/21Loc: LABAccession Number: [id number] Procedure: XR chest 2V Ordering Provider: Jeannette Schwab P.A-C PROCEDURE: XR CHEST 2V INDICATIONS: cough, weight, loss, fatigue, chills TECHNIQUE: 2 views of the chest were acquired. COMPARISON: [facility], CR, XR CHEST 2VW, 05/26/2017, 6:32. FINDINGS: Surgical changes and devices: Left chest wall dual lead cardiac pacer. Status post CABG procedure and aortic valve replacement. Lungs and pleura: Lungs are clear. No pleural effusions or pneumothorax. Mediastinum: Mediastinal contours are normal. Heart size is normal. Bones and chest wall: No suspicious bony abnormalities. Soft tissues appear unremarkable. IMPRESSION: No acute cardiopulmonary disease process. Dictated by: Steff Carranza MD, PhD on 03/03/2021 at 10:48 Approved by: Steff Carranza MD, PhD on 03/03/2021 at 10:49 ECG Data Attestation: I personally reviewed and interpreted this ECG as follows: Prior ECG tracings: available for review Interpretation: Atrial sensed, ventricular paced rhythm. Rate of 67 [place] 186 QRS of 182 and QTC of 477. MDM Narrative Medical decision making narrative: 75-year-old male who is had some cough, congestion chills and no 10 lb weight loss over several weeks with possible fevers. Patient has also had headache although he describes this as mild. He had a temperature of 101? F at home. Patient had chest x-ray it through Urgent Care which was negative, labs show anemia with a hemoglobin at 10. Patient and relates that he was told he was anemic in [place] as well. He was treated with for sinusitis with oral antibiotics with minimal improvement. He has not had any other clear changes in his labs hyponatremia, slightly elevated BUN and very mild elevation of AST, ALT with normal bilirubin, alk-phos and lipase. On examination no focal causes found for his symptoms. Blood blood cultures are pending and patient also has some additional outpatient labs pending. Patient would like to return home. He was encouraged follow-up with his physician as an appointment on the 14 of March and also encouraged to have a repeat hemoglobin as his priors from a year ago were normal range. Patient has not appreciated any GI symptoms such as diarrhea, melena or bright red blood. Discharge Plan Departure Patient Disposition: Home Clinical Impression: Anemia Activity Restrictions/Additional Instructions: I do not have a clear cause of your symptoms today. Your blood cultures are pending these typically result in 48 hours. You also have some additional chest pending that were ordered as an outpatient. Your hemoglobin does appear decreased today from a normal level. I would discuss with your physician and they may wish to have even EGD or colonoscopy for further evaluation. I would recommend having your hemoglobin rechecked in the next several days. Please return for fevers, severe headaches, altered mental status, new chest pain, shortness of breath, persistent vomiting, lightheadedness or passing out, new swelling rash, rashes skin changes or other new or concerning symptoms. Prescriptions: No Action multivitamin Capsule 1 cap PO DAILY Qty: 0 RF: 0 rosuvastatin [Crestor] 20 MG tablet 20 mg PO DAILY Qty: 0 RF: 0 Brilinta 90 MG tablet 90 mg PO BID Qty: 0 RF: 0 Shingrix Adjuvant Component-PF suspension 0.5 ml IM .COMPLEX Qty: 0.5 RF: 0 Eliquis 5 mg tablet 5 mg PO BID RF: 0 lisinopril 10 mg tablet 10 mg PO BID RF: 0 furosemide [Lasix] 20 mg Tablet 20 mg PO DAILY RF: 0 magnesium 1 tab PO DAILY RF: 0 fluorouracil 5 % Cream 1 applic TOPICAL BID RF: 0 chlorthalidone 25 mg Tablet 12.5 mg PO Q OTHER DAY RF: 0 metoprolol succinate 25 mg Tablet Extended Release 24 Hr 25 mg PO DAILY RF: 0 NITROGLYCERIN (#NITROSTAT) 0.4 mg Sublingual PRN RF: 0 Referrals: Sherri Waggoner MD [Primary Care Provider] -
[2021-03-03 23:20] VITALS: BP 137/89; PULSE 60; RESP 18; TEMP 36.4; O2SAT 100
[2021-03-04 19:19] LABS: Enterococcus species Not Detected (Not Detect); Listeria monocytogenes Not Detected (Not Detect); Staphylococcus species Not Detected (Not Detect)
[2021-03-04 19:20] LABS: Acinetobacter baumannii Not Detected (Not Detect); Candida albicans Not Detected (Not Detect); Candida glabrata Not Detected (Not Detect); Candida krusei Not Detected (Not Detect); E. coli Not Detected (Not Detect); Enterobacter cloacae complex Not Detected (Not Detect); Enterobacteriaceae species Not Detected (Not Detect); Haemophilus influenzae Not Detected (Not Detect); Neisseria meningitidis Not Detected (Not Detect); Proteus species Not Detected (Not Detect); Pseudomonas aeruginosa Not Detected (Not Detect); Serratia marcescens Not Detected (Not Detect); Streptococcus agalactiae (Gr B Not Detected (Not Detect); Streptococcus pneumonia Not Detected (Not Detect); Streptococcus pyogenes (Gr A) Not Detected (Not Detect)
[2021-03-04 19:21] LABS: Candida parapsilosis Not Detected (Not Detect); Candida tropicalis Not Detected (Not Detect)
[2021-03-04 19:23] LABS: Streptococcus species Detected (Not Detect)
== END 2021-03-03 23:21 | disposition home or self-care (01) ==
PROVIDERS: Emergency Provider Emergency Medicine; PCP Internal Medicine
DX: D64.9 Anemia, unspecified (principal); R51.9 Headache, unspecified; R05 Cough; R63.4 Abnormal weight loss; R79.89 Other specified abnormal findings of blood chemistry; Z20.822 Contact with and (suspected) exposure to COVID-19
CPT/HCPCS: 36415; 71046; 80053; 81001; 81003; 83605; 83690; 84145; 85025; 85610; 85730; 86635; 87040; 87150; 87186; 87205; 87633; 87635; 93005; 93010; 99284; C9803

== ENCOUNTER 2021-03-06 11:18 | Emergency (ER) | payer MEDICARE, OTHER, SELFPAY ==
[2021-03-06 11:25] VITALS: BP 118/57; PULSE 74; RESP 15; TEMP 36.7; O2SAT 98; BMI 27.1
[2021-03-06 12:18] LABS: Add Manual Diff / Slide Review NO; Basophils Absolute Auto 0 /uL (0-100); Basophils Percent Auto 0.4 % (0-2); Eosinophils Absolute Auto 0 /uL (0-450); Eosinophils Percent Auto 0.3 % (2-4); Hematocrit 32.2 % (41-53); Hemoglobin 10.8 g/dL (13.5-17.5); Lymphocytes Absolute Auto 800 /uL (1100-4500); Lymphocytes Percent Auto 8.9 % (25-40); Mean Corpuscular HGB Conc 33.7 % (30-36); Mean Corpuscular Hemoglobin 29.9 PG (26-34); Mean Corpuscular Volume 88.7 fL (80-100); Monocytes Absolute Auto 1100 /uL (0-900); Monocytes Percent Auto 12.7 % (3-14); Neutrophils Absolute Auto 7000 /uL (1500-7000); Neutrophils Percent Auto 77.7 % (50-75); Platelet Count 192 X10^3/uL (150-400); Red Blood Cell Count 3.63 X10^6/uL (4.5-5.9); Red Cell Distribution Width 15.6 % (11.6-14.8); White Blood Cell Count 9.1 X10^3/uL (4.5-11.0)
[2021-03-06 12:28] LABS: Alanine Aminotransferase 158 IU/L (<50); Albumin 3.8 g/dL (3.5-5.0); Albumin Globulin Ratio 1.3 (1.0-2.8); Alkaline Phosphatase 89 U/L (38-126); Aspartate Aminotransferase 96 IU/L (17-59); BUN Creatinine Ratio 17.1 (6-22); Bilirubin Total 0.5 mg/dL (0.2-1.3); Blood Urea Nitrogen 18 mg/dL (9-20); Calcium 9.4 mg/dL (8.4-10.2); Carbon Dioxide 30 mmol/L (22-32); Chloride 97 mmol/L (98-107); Estimated Glomerular Filt Rate > 60.0 mL/min (>60); Glucose 101 mg/dL (80-110); HEMOLYSIS < 15 (0-50); Lactate (Lactic Acid) 1.4 mmol/L (0.7-2.1); Potassium 4.7 mmol/L (3.4-5.1); Sodium 134 mmol/L (137-145); Total Protein 6.8 g/dL (6.3-8.2)
--- NOTE | 2021-03-06 12:39 | ED_ITS ---
HPI - Recheck/Abnormal Lab/Rx General Chief Complaint: Recheck/Abnormal Lab/Rx Stated Complaint: returning for addtl lab work after 03/03/21 visit Time Seen by Provider: 03/06/21 11:42 Source: patient Mode of arrival: Ambulatory Limitations: no limitations History of Present Illness HPI narrative: Patient is a 75-year-old male who presents as request from the emergency department with positive blood cultures. He was seen evaluated here 3 days ago for generalized weakness and some low-grade fevers. Blood cultures Streptococcus salivary from 03/03/21. He has had ongoing fatigue for number of weeks. Like states that since his emergency department visit he did have a low- grade fever yesterday but nothing today. He certainly had decreased appetite and lost over 10 lb in the last few weeks. He denies early CAD and just says he is not hungry food does not seem appetite icing to him. He has had some fever n o body aches or chills. He has generalized weakness. Found to have some mild anemia with out obvious blood loss. He has no abdominal pain no cough no chest pain no shortness of breath no painful urination. No rash. MD complaint: abnormal lab Related Data Home Medications Medication Instructions Recorded Confirmed multivitamin 1 cap PO DAILY #0 07/30/11 03/03/21 rosuvastatin [Crestor] 20 mg PO DAILY #0 03/16/12 03/03/21 Brilinta 90 mg PO BID #0 05/22/17 03/03/21 apixaban 5 mg tablet 5 mg PO BID 08/21/19 03/03/21 lisinopril 10 mg tablet 10 mg PO BID 08/21/19 03/03/21 NITROGLYCERIN (#NITROSTAT) 0.4 mg SUBLINGUAL PRN 08/22/19 03/03/21 chlorthalidone 12.5 mg PO Q OTHER DAY 08/22/19 03/03/21 fluorouracil 1 applic TOPICAL BID 08/22/19 03/03/21 magnesium 1 tab PO DAILY 08/22/19 03/03/21 metoprolol succinate 25 mg PO DAILY 08/22/19 03/03/21 furosemide [Lasix] 20 mg PO DAILY 06/18/20 03/03/21 Previous Rx's Medication Instructions Recorded adjuvant AS01B (PF)vial 1 of 2 0.5 ml IM .COMPLEX #0.5 ml 07/03/19 cefdinir 300 mg PO Q12H #20 cap 03/06/21 cefdinir 300 mg PO Q12H #20 cap 03/06/21 Allergies Allergy/AdvReac Type Severity Reaction Status Date / Time clopidogrel [From PLAVIX] Allergy Severe hosipitaliz Verified 03/06/21 11:30 ation procaine [PROCAINE] Allergy Mild NUMBNESS Verified 03/06/21 11:30 WILL NOT WEAR OFF PER PATIENT Review of Systems Review of Systems ROS Unobtainable: All systems reviewed & are unremarkable except as noted in HPI and below Constitutional Constitutional: Reports body ache(s), Reports fatigue, Reports fever(s), Denies frequent falls and Reports poor appetite ENT Ears, Nose, Mouth, and Throat: Denies dizziness Cardiovascular Cardiovascular: Denies chest pain, Denies irregular heart rhythm, Denies lightheadedness, Denies palpitations, Denies dyspnea, Denies dyspnea on exertion and Denies orthopnea Respiratory Respiratory: Denies cough, Denies dyspnea, Denies dyspnea on exertion and Denies wheezing Gastrointestinal Gastrointestinal: Denies abdominal pain, Denies change in bowel habits, Denies diarrhea, Denies nausea and Denies vomiting Musculoskeletal Musculoskeletal: Denies back pain, Denies arthralgias and Denies numbness Integumentary/Breasts Skin/Breast: Denies pruritus, Denies erythema, Denies rash and Denies wounds Neurologic Neurologic: Denies behavioral changes, Denies confusion, Denies dizziness, Denies frequent falls and Denies numbness Psychiatric Psychiatric: Denies behavioral changes and Denies confusion Endocrine Endocrine: Reports fatigue and Denies palpitations Allergic/Immunologic Allergic/Immunologic: Denies wheezing Patient History Social History household members: spouse Smoking Status: Former smoker alcohol intake: current Smoking Status: Former smoker alcohol intake frequency: a few times a week Substance Use Type: does not use Exam Initial Vital Signs Initial Vital Signs: Vital Signs Temperature 98.0 F 03/06/21 11:25 Pulse Rate 74 03/06/21 11:25 Respiratory Rate 15 03/06/21 11:25 Blood Pressure 118/57 L 03/06/21 11:25 Pulse Oximetry 98 03/06/21 11:25 GENERAL: Alert well-appearing 75-year-old male and in no acute distress. HEENT: Head atraumatic,EOMI, pupils reactive, face symmetric, moist mucous m embranes CARDIOVASCULAR: Regular rate and rhythm without murmurs, rubs or gallops. RESPIRATORY: Breath sounds equal bilaterally, no wheezes rales or rhonchi. ABDOMEN: Soft, nontender. Normoactive bowel sounds all 4 quadrants. No guarding or rebound. EXTREMITIES: Normal range of motion, no clubbing or edema. Neurovascularly intact NEUROLOGICAL: Alert and oriented x4.Normal gait and speech. Cranial nerves II through XII grossly intact. SKIN: Warm, dry, no laceration, no petechiae, no rashes or lesions. Course Orders Ordered: ED Orders 03/06/21 12:07 Complete Blood Count AUTO DIFF Stat Comprehensive Metabolic Panel Stat Lactate (Lactic Acid) Stat Lipase Stat Procalcitonin Stat 03/06/21 12:25 Blood Culture Stat 03/06/21 13:20 US abdomen limited Stat Discontinued Medications Ceftriaxone Sodium/Dextrose (Rocephin) 1 gm in 50 mls @ 100 mls/hr IV NOW ONE Stop: 03/06/21 13:50 Last Infusion: 03/06/21 14:12 Dose: 0 mls/hr Documented by: Admin: 03/06/21 13:42 Dose: 100 mls/hr Documented by: CTRMARY Vital Signs Vital signs: Vital Signs - 8 hr 03/06/21 11:25 03/06/21 13:19 03/06/21 13:30 Temperature 98.0 F Pulse Rate 74 58 L 57 L Respiratory Rate 15 Blood Pressure 118/57 L Pulse Oximetry 98 96 96 03/06/21 14:00 03/06/21 14:15 03/06/21 14:30 Temperature Pulse Rate 57 L 59 L 60 Respiratory Rate Blood Pressure 110/57 L 110/56 L Pulse Oximetry 97 97 95 MDM - Recheck/Abnormal Lab/Rx Lab Data Result diagrams: 03/06/21 12:07 03/06/21 12:07 Labs: Lab Results 03/06/21 03/06/21 03/06/21 Range/Units 12:07 12:07 12:07 WBC 9.1 (4.5-11.0) X10^3/uL RBC 3.63 L (4.5-5.9) X10^6/uL Hgb 10.8 L (13.5-17.5) g/dL Hct 32.2 L (41-53) % MCV 88.7 (80-100) fL MCH 29.9 (26-34) PG MCHC 33.7 (30-36) % RDW 15.6 H (11.6-14.8) % Plt Count 192 (150-400) X10^3/uL Neut % (Auto) 77.7 H (50-75) % Lymph % (Auto) 8.9 L (25-40) % [place] % (Auto) 12.7 (3-14) % Eos % (Auto) 0.3 L (2-4) % Baso % (Auto) 0.4 (0-2) % Neut # (Auto) 7000 (9099-7551) /uL Lymph # (Auto) 800 L (8686-2678) /uL [place] # (Auto) 1100 H (0-900) /uL Eos # (Auto) 0 (0-450) /uL Baso # (Auto) 0 (0-100) /uL Sodium 134 L (137-145) mmol/L Potassium 4.7 (3.4-5.1) mmol/L Chloride 97 L (98-107) mmol/L Carbon Dioxide 30 (22-32) mmol/L BUN 18 (9-20) mg/dL Creatinine 1.05 (0.66-1.25) mg/dL Estimated GFR > 60.0 (>60) mL/min BUN/Creatinine Ratio 17.1 (6-22) Glucose 101 (80-110) mg/dL Lactate 1.4 (0.7-2.1) mmol/L Calcium 9.4 (8.4-10.2) mg/dL Total Bilirubin 0.5 (0.2-1.3) mg/dL AST 96 H (17-59) IU/L ALT 158 H (<50) IU/L Alkaline Phosphatase 89 (38-126) U/L Total Protein 6.8 (6.3-8.2) g/dL Albumin 3.8 (3.5-5.0) g/dL Globulin 3.0 (1.7-4.1) g/dL Albumin/Globulin Ratio 1.3 (1.0-2.8) Lipase (23-300) U/L Procalcitonin (<0.5) ng/mL 03/06/21 03/06/21 Range/Units 12:07 12:07 WBC (4.5-11.0) X10^3/uL RBC (4.5-5.9) X10^6/uL Hgb (13.5-17.5) g/dL Hct (41-53) % MCV (80-100) fL MCH (26-34) PG MCHC (30-36) % RDW (11.6-14.8) % Plt Count (150-400) X10^3/uL Neut % (Auto) (50-75) % Lymph % (Auto) (25-40) % [place] % (Auto) (3-14) % Eos % (Auto) (2-4) % Baso % (Auto) (0-2) % Neut # (Auto) (9647-5596) /uL Lymph # (Auto) (7378-5193) /uL [place] # (Auto) (0-900) /uL Eos # (Auto) (0-450) /uL Baso # (Auto) (0-100) /uL Sodium (137-145) mmol/L Potassium (3.4-5.1) mmol/L Chloride (98-107) mmol/L Carbon Dioxide (22-32) mmol/L BUN (9-20) mg/dL Creatinine (0.66-1.25) mg/dL Estimated GFR (>60) mL/min BUN/Creatinine Ratio (6-22) Glucose (80-110) mg/dL Lactate (0.7-2.1) mmol/L Calcium (8.4-10.2) mg/dL Total Bilirubin (0.2-1.3) mg/dL AST (17-59) IU/L ALT (<50) IU/L Alkaline Phosphatase (38-126) U/L Total Protein (6.3-8.2) g/dL Albumin (3.5-5.0) g/dL Globulin (1.7-4.1) g/dL Albumin/Globulin Ratio (1.0-2.8) Lipase 120 (23-300) U/L Procalcitonin 0.30 (<0.5) ng/mL MDM Narrative Medical decision making narrative: M.I.C. RX --------- --- * Ampicillin <=0.06 S * Vancomycin S * Ceftriaxone 0.25 S * Clindamycin <=0.25 S * Erythromycin <=0.12 S * Levofloxacin I * Linezolid <=2 S * Penicillin <=0.06 S * Tetracycline <=0.25 S Patient overall appears well but he has had which it fevers over the past 1 week. It does make me think blood cultures are not contaminate. Sensitivities to Rocephin. Patient got 1 dose in the emergency department will send him home on cefdinir. He is appointment [facility] with new PCP on Wednesday which is in 4 days and then a physical appointment with her that Wednesday. He certainly has ongoing decrease in appetite. Ultrasound does show gallstones but no signs of acute cholecystitis. He has absolutely no abdominal pain negative Alanis sign. He has no leukocytosis. It is possible that his strep is caused from his gallbladder. However patient appears well with good follow-up and is started on antibiotics. I have discussed with him warning signs and when to return to the emergency department. Procalcitonin remains the same as it did a few days ago. Discharge Plan Departure Patient Disposition: Home Clinical Impression: Bacteremia Cholelithiasis Qualifiers: Cholelithiasis location: gallbladder Cholecystitis presence: without cholecystitis Biliary obstruction: without biliary obstruction Qualified Code(s): K80.20 - Calculus of gallbladder without cholecystitis without obstruction Instructions: Gallstones Activity Restrictions/Additional Instructions: *You have been diagnosed with bacteria in blood and gallstones *What to do: At this time may require gallbladder surgery is however not emergent it may be causing your decrease in appetite. At this time I would like to treat your blood cultures because to have continued fevers. Repeat blood cultures are pending you may hear from us in the next 2-3 days if they are again positive *Continue to take medications as directed Cefdinir 300 mg twice a day for 7 days unless otherwise stop by a physician--> SENT TO [facility] *Follow up with your primary care provider in 2-3 days *Return to ER if you should have persistent fevers, weakness or any new, worsening or concerning symptoms Prescriptions: New cefdinir 300 mg capsule 300 mg PO Q12H Qty: 20 RF: 0 cefdinir 300 mg capsule 300 mg PO Q12H Qty: 20 RF: 0 No Action multivitamin Capsule 1 cap PO DAILY Qty: 0 RF: 0 rosuvastatin [Crestor] 20 MG tablet 20 mg PO DAILY Qty: 0 RF: 0 Brilinta 90 MG tablet 90 mg PO BID Qty: 0 RF: 0 Shingrix Adjuvant Component-PF suspension 0.5 ml IM .COMPLEX Qty: 0.5 RF: 0 Eliquis 5 mg tablet 5 mg PO BID RF: 0 lisinopril 10 mg tablet 10 mg PO BID RF: 0 furosemide [Lasix] 20 mg Tablet 20 mg PO DAILY RF: 0 magnesium 1 tab PO DAILY RF: 0 fluorouracil 5 % Cream 1 applic TOPICAL BID RF: 0 chlorthalidone 25 mg Tablet 12.5 mg PO Q OTHER DAY RF: 0 metoprolol succinate 25 mg Tablet Extended Release 24 Hr 25 mg PO DAILY RF: 0 NITROGLYCERIN (#NITROSTAT) 0.4 mg Sublingual PRN RF: 0 Referrals: Sherri Waggoner MD [Primary Care Provider] -
--- NOTE | 2021-03-06 13:14 | PC.NURSE ---
generalized weakness continues.
[2021-03-06 13:19] VITALS: PULSE 58; O2SAT 96
--- NOTE | 2021-03-06 13:20 | DI.US.S_ITS ---
PROCEDURE: US ABDOMEN LIMITED INDICATIONS: ELEVATED LIVER ENZYMES TECHNIQUE: Real-time focused scanning was performed of the abdomen, with image documentation. COMPARISON: [facility], CT, CT-IVP, 07/28/2011, 10:48. FINDINGS: This study is overall limited by bowel gas and body habitus. The liver demonstrates prominent size. The liver demonstrates generalized moderately increased echogenicity. This decreases ultrasound sensitivity for detection of hepatic masses. Areas of focal fatty sparing can be seen adjacent to gallbladder. Multiple mobile gallstones can be seen within the gallbladder neck. The gallbladder wall is not thickened, measuring 3 mm or less. No specific pericholecystic fluid is seen. The sonographic Alanis sign is negative. There is no biliary dilatation, the common bile duct measures 3 mm. The pancreas is not well seen. IMPRESSION: Multiple mobile gallstones are seen, yet without additional sonographic signs of cholecystitis. Negative for biliary dilatation. Please correlate with physical examination findings, patient presentation, and laboratory values. Dictated by: Yves John M.D. on 03/06/2021 at 13:29 Approved by: Yves John M.D. on 03/06/2021 at 13:31
[2021-03-06 13:30] VITALS: PULSE 57; O2SAT 96
[2021-03-06] MEDS: CEFTRIAXONE 1 GM/50 ML FROZ.PIGGY IV (13:42)
[2021-03-06 14:00] VITALS: PULSE 57; O2SAT 97
[2021-03-06 14:15] VITALS: BP 110/57; PULSE 59; O2SAT 97
[2021-03-06 14:30] VITALS: BP 110/56; PULSE 60; O2SAT 95
[2021-03-06 14:41] LABS: Lipase 120 U/L (23-300)
== END 2021-03-06 15:08 | disposition home or self-care (01) ==
PROVIDERS: Emergency Provider Emergency Medicine; PCP Internal Medicine
DX: K80.20 Calculus of gallbladder without cholecystitis without obstruction (principal); R78.81 Bacteremia; R50.9 Fever, unspecified
CPT/HCPCS: 36415; 76705; 80053; 83605; 83690; 84145; 85025; 87040; 87205; 99284

== ENCOUNTER 2021-03-07 10:24 | Inpatient (IN) | payer MEDICARE, OTHER, SELFPAY ==
[2021-03-07] VITALS (10 sets, daily range): BP systolic 104–141; BP diastolic 52–65; PULSE 57–66; RESP 14–17; TEMP 36.1–36.8; O2SAT 95–99; BMI 27.1
--- NOTE | 2021-03-07 10:27 | DI.CT.S_ITS ---
PROCEDURE: CT CHEST ABD PEL W CON INDICATIONS: fever TECHNIQUE: After the administration of intravenous contrast, 5 mm thick sections acquired from the lung apices to the symphysis. 5 mm coronal and sagittal reformats were performed, with additional 7 mm MIP reformats through the lungs. For radiation dose reduction, the following was used: automated exposure control, adjustment of mA and/or kV according to patient size. COMPARISON: None. FINDINGS: Chest: Cardiovascular: Heart size is normal. No evidence of pulmonary embolism, aortic aneurysm or dissection. There is a transcatheter aortic valve replacement noted as well as a left-sided pacemaker and evidence of prior bypass graft with a densely calcified coronary artery vasculature. Atherosclerotic vascular calcification noted in the aortic arch. Lungs and pleural spaces: There are 2 separate 5 mm pleural-based nodules noted associated with the right middle lobe. Minimal dependent atelectasis and/or infiltrate noted in both lower lobes, right greater than left. Lymph nodes: No mediastinal, hilar or axillary adenopathy. Mediastinum: Anterior mediastinum unremarkable. No hiatal hernia. Bones: Unremarkable. No acute fracture. Degenerative changes noted in the lower cervical spine. Other: Thyroid unremarkable. Abdomen and Pelvis: Liver: Normal in size and attenuation. No contour deformity present. Biliary system: Dependent calcified stones noted in the lumen the gallbladder without evidence of pericholecystic inflammatory change. No intra or extrahepatic bile duct dilatation. Pancreas: Unremarkable without mass or inflammation evident. Spleen: Spleen is enlarged at 15.7 cm. No intrinsic lesion Adrenals: Normal morphology and density. Reproductive system: Prostate is enlarged at 4.3 x 5.1 x 5.8 cm Urinary system: Bilateral nonobstructive renal calculi present. Largest is in the upper pole the left kidney measuring 1 cm. There is right renal scarring as well as small renal simple cysts, largest on the right measures 2.2 cm. No hydronephrosis. Gastrointestinal system: The bowel appears unremarkable with no evidence of bowel obstruction or inflammation. The stomach appears unremarkable. No findings to suggest acute appendicitis. Normal appendix identified. Peritoneal spaces: No intra- or retroperitoneal adenopathy. No free air. No free fluid. Vasculature: Atherosclerotic calcification in the abdominal aorta noted without evidence of aneurysm. Moderate right common iliac stenosis noted. Musculoskeletal: Normal bone mineralization. No acute fractures. Abdominal wall intact without evidence of ventral or inguinal hernias. degenerative changes noted in the lower lumbar spine. IMPRESSION: 1. Mild dependent bibasilar atelectasis and/or infiltrate noted greater on the right. 2. Splenomegaly, 15.7 cm without intrinsic lesion. 3. Cholelithiasis without CT evidence of acute cholecystitis. 4. Incidental small right middle lobe pleural based pulmonary nodules are probably inflammatory but could be followed in 12 months to assure stability. 5. Chronic changes include dense generalized atherosclerotic vascular calcification without aneurysm, nonobstructive bilateral renal calculi, aortic valve replacement, prostate hypertrophy Dictated by: Eliseo Rudolph M.D. on 03/07/2021 at 10:44 Approved by: Eliseo Rudolph M.D. on 03/07/2021 at 11:10
--- NOTE | 2021-03-07 10:37 | ED_ITS ---
HPI - Recheck/Abnormal Lab/Rx General Chief Complaint: Recheck/Abnormal Lab/Rx Stated Complaint: staph in blood Time Seen by Provider: 03/07/21 10:27 Source: patient Mode of arrival: Ambulatory Limitations: no limitations History of Present Illness HPI narrative: Patient is a 75-year-old male who was called back for positive blood cultures. I saw and evaluated him yesterday after he was found to have positive strep blood cultures. Has no real source was found in 2 previous ED visits. He has no abdominal pain but ultrasound yesterday did show gallstones without thickening of wall or pericholecystic fluid. He certainly had decrease in appetite occasional nausea. Last evening said that he was coughing but he certainly is not coughing anything up. Yesterday he had some mild shortness of breath, no painful or frequent urination. He overall is feeling significantly better after he received a dose of Rocephin in the ED and he started cefdinir yesterday and took a 2nd dose this morning. He overall appears well and joyful. He did not have fever last night no chills or sweats. MD complaint: abnormal lab and needs IV antibiotics Related Data Home Medications Medication Instructions Recorded Confirmed multivitamin 1 cap PO DAILY #0 07/30/11 03/07/21 rosuvastatin [Crestor] 20 mg PO DAILY #0 03/16/12 03/07/21 apixaban 5 mg tablet 5 mg PO BID 08/21/19 03/07/21 lisinopril 10 mg tablet 10 mg PO BID 08/21/19 03/07/21 NITROGLYCERIN (#NITROSTAT) 0.4 mg SUBLINGUAL PRN 08/22/19 03/07/21 chlorthalidone 12.5 mg PO Q OTHER DAY 08/22/19 03/07/21 magnesium 1 tab PO DAILY 08/22/19 03/07/21 furosemide [Lasix] 20 mg PO DAILY 06/18/20 03/07/21 metoprolol succinate 50 mg PO DAILY 03/07/21 03/07/21 Previous Rx's Medication Instructions Recorded cefdinir 300 mg PO Q12H #20 cap 03/06/21 Allergies Allergy/AdvReac Type Severity Reaction Status Date / Time clopidogrel [From PLAVIX] Allergy Severe hosipitaliz Verified 03/07/21 10:37 ation procaine [PROCAINE] Allergy Mild NUMBNESS Verified 03/07/21 10:37 WILL NOT WEAR OFF PER PATIENT Review of Systems Review of Systems ROS Unobtainable: All systems reviewed & are unremarkable except as noted in HPI and below Constitutional Constitutional: Denies excessive sweating, Reports fatigue, Reports fever(s) (This week), Denies frequent falls, Denies headache(s) and Reports poor appetite Eyes Eyes: Denies blurry vision and Denies diplopia ENT Ears, Nose, Mouth, and Throat: Denies vertigo, Denies dizziness, Denies headache(s) and Denies disequilibrium Cardiovascular Cardiovascular: Denies chest pain, Denies irregular heart rhythm, Denies lightheadedness, Denies palpitations, Reports dyspnea on exertion (Very mild) and Denies orthopnea Respiratory Respiratory: Reports cough, Denies pain on inspiration, Denies pain with cough and Reports dyspnea on exertion (Very mild) Gastrointestinal Gastrointestinal: Denies abdominal pain, Denies change in bowel habits, Denies diarrhea, Denies nausea and Denies vomiting Genitourinary Genitourinary: Denies urinary hesitancy, Denies urinary incontinence and Denies urinary urgency Genitourinary: Denies urinary incontinence, Denies urinary hesitancy and Denies urinary urgency Musculoskeletal Musculoskeletal: Denies back pain and Denies myalgias Integumentary/Breasts Skin/Breast: Denies pruritus, Denies erythema, Denies rash and Denies wounds Neurologic Neurologic: Denies confusion, Denies vertigo, Denies dizziness, Denies frequent falls, Denies headache(s) and Denies disequilibrium Psychiatric Psychiatric: Denies confusion Endocrine Endocrine: Denies excessive sweating, Reports fatigue and Denies palpitations Patient History Medical History Atrial fibrillation CAD (coronary atherosclerotic disease) (07/30/11) Melanoma Other and unspecified hyperlipidemia (07/30/11) Unspecified essential hypertension (07/30/11) Weight loss Surgical History S/P TAVR (transcatheter aortic valve replacement) Stented coronary artery Social History household members: spouse Smoking Status: Former smoker alcohol intake: current Smoking Status: Former smoker alcohol intake frequency: a few times a week Substance Use Type: does not use Exam Initial Vital Signs Initial Vital Signs: Vital Signs Temperature 98.2 F 03/07/21 10:30 Pulse Rate 60 03/07/21 10:30 Respiratory Rate 14 03/07/21 10:30 Blood Pressure 141/65 H 03/07/21 10:30 Pulse Oximetry 97 03/07/21 10:30 GENERAL: 75-year-old well-appearing male and in no acute distress. HEENT: Head atraumatic,EOMI, pupils reactive, face symmetric, moist mucous membranes no meningeal sign CARDIOVASCULAR: Regular rate and rhythm without murmurs, rubs or gallops. RESPIRATORY: Breath sounds equal bilaterally, no wheezes rales or rhonchi. ABDOMEN: Soft, nontender. Normoactive bowel sounds all 4 quadrants. No guarding or rebound. Negative Alanis sign no right upper quadrant pain EXTREMITIES: Normal range of motion, no clubbing or edema. Neurovascularly intact NEUROLOGICAL: Alert and oriented x4.Normal gait and speech. Cranial nerves II through XII grossly intact. SKIN: Warm, dry, no laceration, no petechiae, no rashes or lesions. Course Orders Ordered: ED Orders 03/07/21 10:27 CT chest abd pel w con Stat EKG-12 Lead Stat 03/07/21 10:35 Complete Blood Count AUTO DIFF Stat Comprehensive Metabolic Panel Stat Lactate (Lactic Acid) Stat Lipase Stat Procalcitonin Stat Troponin & CK Cardiac Panel Stat 03/07/21 11:12 Urinalysis and Microscopic Stat 03/07/21 11:15 COVID19 - ADMIT (RECEIVABLE EXECUTIVE swab/PCR) Stat 03/07/21 11:18 Blood Culture Stat Acetaminophen (Acetaminophen 325 Mg Tablet) 650 mg PO Q6HR PRN PRN Reason: Fever/Mild Pain (1-3) Ceftriaxone Sodium/Dextrose (Rocephin) 2 gm in 50 mls @ 100 mls/hr IV 2200 TRACY Sodium Chloride (Normal Saline 0.9%) 250 mls @ 21 mls/hr IV Q24H PRN PRN Reason: Flush Naloxone HCl (Naloxone 0.4 Mg/Ml Vial) 0.2 mg IV Q2MIN PRN PRN Reason: Opiate Reversal Ondansetron HCl (Ondansetron 4 Mg/2 Ml Inj) 4 mg IV Q8HR PRN PRN Reason: Nausea And Vomiting Sodium Chloride (Sodium Chloride 0.9% Flush) 10 ml IV PRN PRN PRN Reason: Flush Discontinued Medications Ceftriaxone Sodium/Dextrose (Rocephin) 1 gm in 50 mls @ 100 mls/hr IV NOW ONE Stop: 03/07/21 11:18 Last Infusion: 03/07/21 12:01 Dose: 0 mls/hr Documented by: Admin: 03/07/21 11:13 Dose: 100 mls/hr Documented by: SITA Vital Signs Vital signs: Vital Signs - 8 hr 03/07/21 10:30 03/07/21 11:43 03/07/21 11:45 Temperature 98.2 F Pulse Rate 60 60 61 Respiratory Rate 14 16 16 Blood Pressure 141/65 H 133/60 133/60 Pulse Oximetry 97 99 98 03/07/21 12:00 Temperature Pulse Rate 60 Respiratory Rate Blood Pressure Pulse Oximetry 96 MDM - Recheck/Abnormal Lab/Rx Lab Data Attestation: I reviewed the patient's lab results. Result diagrams: 03/07/21 10:35 03/07/21 10:35 Labs: Lab Results 03/07/21 03/07/21 03/07/21 Range/Units 10:35 10:35 10:35 WBC 7.5 (4.5-11.0) X10^3/uL RBC 3.59 L (4.5-5.9) X10^6/uL Hgb 10.8 L (13.5-17.5) g/dL Hct 32.1 L (41-53) % MCV 89.2 (80-100) fL MCH 30.2 (26-34) PG MCHC 33.8 (30-36) % RDW 15.2 H (11.6-14.8) % Plt Count 198 (150-400) X10^3/uL Neut % (Auto) 72.1 (50-75) % Lymph % (Auto) 12.8 L (25-40) % [place] % (Auto) 13.6 (3-14) % Eos % (Auto) 1.0 L (2-4) % Baso % (Auto) 0.5 (0-2) % Neut # (Auto) 5400 (0956-5409) /uL Lymph # (Auto) 1000 L (5774-0174) /uL [place] # (Auto) 1000 H (0-900) /uL Eos # (Auto) 100 (0-450) /uL Baso # (Auto) 0 (0-100) /uL Sodium 136 L (137-145) mmol/L Potassium 4.3 (3.4-5.1) mmol/L Chloride 100 (98-107) mmol/L Carbon Dioxide 28 (22-32) mmol/L BUN 20 (9-20) mg/dL Creatinine 1.04 (0.66-1.25) mg/dL Estimated GFR > 60.0 (>60) mL/min BUN/Creatinine Ratio 19.2 (6-22) Glucose 101 (80-110) mg/dL Lactate 1.0 (0.7-2.1) mmol/L Calcium 9.5 (8.4-10.2) mg/dL Total Bilirubin 0.6 (0.2-1.3) mg/dL AST 107 H (17-59) IU/L ALT 182 H (<50) IU/L Alkaline Phosphatase 97 (38-126) U/L Total Creatine Kinase 43 L (55-170) U/L CK-MB (CK-2) TNP CK-MB (CK-2) Rel Index TNP Troponin I 0.027 (0.01-0.034) ng/mL Total Protein 7.1 (6.3-8.2) g/dL Albumin 4.0 (3.5-5.0) g/dL Globulin 3.1 (1.7-4.1) g/dL Albumin/Globulin Ratio 1.3 (1.0-2.8) Lipase 141 (23-300) U/L Procalcitonin 0.26 (<0.5) ng/mL Urine Color Urine Appearance Urine pH (4.5-8.0) Ur Specific [place] (1.000-1.035) Urine Protein (Negative) Urine Glucose (UA) (Negative) g/dL Urine Ketones (NEGATIVE) Urine Occult Blood (Negative) Urine Nitrate (Negative) Urine Bilirubin (NEGATIVE) Urine Urobilinogen (0.2) E.U./dL Ur Leukocyte Esterase (NEGATIVE) Urine RBC (0-5/HPF) Urine WBC (0-5/HPF) Urine Bacteria (None) Ur Culture Indicated? SARS-CoV-2 (PCR) (Negative) 03/07/21 03/07/21 Range/Units 11:12 11:15 WBC (4.5-11.0) X10^3/uL RBC (4.5-5.9) X10^6/uL Hgb (13.5-17.5) g/dL Hct (41-53) % MCV (80-100) fL MCH (26-34) PG MCHC (30-36) % RDW (11.6-14.8) % Plt Count (150-400) X10^3/uL Neut % (Auto) (50-75) % Lymph % (Auto) (25-40) % [place] % (Auto) (3-14) % Eos % (Auto) (2-4) % Baso % (Auto) (0-2) % Neut # (Auto) (1265-9053) /uL Lymph # (Auto) (8303-0101) /uL [place] # (Auto) (0-900) /uL Eos # (Auto) (0-450) /uL Baso # (Auto) (0-100) /uL Sodium (137-145) mmol/L Potassium (3.4-5.1) mmol/L Chloride (98-107) mmol/L Carbon Dioxide (22-32) mmol/L BUN (9-20) mg/dL Creatinine (0.66-1.25) mg/dL Estimated GFR (>60) mL/min BUN/Creatinine Ratio (6-22) Glucose (80-110) mg/dL Lactate (0.7-2.1) mmol/L Calcium (8.4-10.2) mg/dL Total Bilirubin (0.2-1.3) mg/dL AST (17-59) IU/L ALT (<50) IU/L Alkaline Phosphatase (38-126) U/L Total Creatine Kinase (55-170) U/L CK-MB (CK-2) CK-MB (CK-2) Rel Index Troponin I (0.01-0.034) ng/mL Total Protein (6.3-8.2) g/dL Albumin (3.5-5.0) g/dL Globulin (1.7-4.1) g/dL Albumin/Globulin Ratio (1.0-2.8) Lipase (23-300) U/L Procalcitonin (<0.5) ng/mL Urine Color Yellow Urine Appearance Clear Urine pH 6.0 (4.5-8.0) Ur Specific [place] 1.020 (1.000-1.035) Urine Protein Negative (Negative) Urine Glucose (UA) Negative (Negative) g/dL Urine Ketones Negative (NEGATIVE) Urine Occult Blood Trace-intact (Negative) Urine Nitrate Negative (Negative) Urine Bilirubin Negative (NEGATIVE) Urine Urobilinogen 0.2 (0.2) E.U./dL Ur Leukocyte Esterase Negative (NEGATIVE) Urine RBC 0-1/hpf (0-5/HPF) Urine WBC 0-1/hpf (0-5/HPF) Urine Bacteria Occasional (0-1) (None) Ur Culture Indicated? Cult not indicated SARS-CoV-2 (PCR) Negative (Negative) Imaging Data CT scan - abdomen/pelvis: Radiologist's Impression: PROCEDURE: CT CHEST ABD PEL W CON INDICATIONS: fever TECHNIQUE: After the administration of intravenous contrast, 5 mm thick sections acquired from the lung apices to the symphysis. 5 mm coronal and sagittal reformats were performed, with additional 7 mm MIP reformats through the lungs. For radiation dose reduction, the following was used: automated exposure control, adjustment of mA and/or kV according to patient size. COMPARISON: None. FINDINGS: Chest: Cardiovascular: Heart size is normal. No evidence of pulmonary embolism, aortic aneurysm or dissection. There is a transcatheter aortic valve replacement noted as well as a left-sided pacemaker and evidence of prior bypass graft with a densely calcified coronary artery vasculature. Atherosclerotic vascular calcification noted in the aortic arch. Lungs and pleural spaces: There are 2 separate 5 mm pleural-based nodules noted associated with the right middle lobe. Minimal dependent atelectasis and/or infiltrate noted in both lower lobes, right greater than left. Lymph nodes: No mediastinal, hilar or axillary adenopathy. Mediastinum: Anterior mediastinum unremarkable. No hiatal hernia. Bones: Unremarkable. No acute fracture. Degenerative changes noted in the lower cervical spine. Other: Thyroid unremarkable. Abdomen and Pelvis: Liver: Normal in size and attenuation. No contour deformity present. Biliary system: Dependent calcified stones noted in the lumen the gallbladder without evidence of pericholecystic inflammatory change. No intra or extrahepatic bile duct dilatation. Pancreas: Unremarkable without mass or inflammation evident. Spleen: Spleen is enlarged at 15.7 cm. No intrinsic lesion Adrenals: Normal morphology and density. Reproductive system: Prostate is enlarged at 4.3 x 5.1 x 5.8 cm Urinary system: Bilateral nonobstructive renal calculi present. Largest is in the upper pole the left kidney measuring 1 cm. There is right renal scarring as well as small renal simple cysts, largest on the right measures 2.2 cm. No hydronephrosis. Gastrointestinal system: The bowel appears unremarkable with no evidence of bowel obstruction or inflammation. The stomach appears unremarkable. No findings to suggest acute appendicitis. Normal appendix identified. Peritoneal spaces: No intra- or retroperitoneal adenopathy. No free air. No free fluid. Vasculature: Atherosclerotic calcification in the abdominal aorta noted without evidence of aneurysm. Moderate right common iliac stenosis noted. Musculoskeletal: Normal bone mineralization. No acute fractures. Abdominal wall intact without evidence of ventral or inguinal hernias. degenerative changes noted in the lower lumbar spine. IMPRESSION: 1. Mild dependent bibasilar atelectasis and/or infiltrate noted greater on the right. 2. Splenomegaly, 15.7 cm without intrinsic lesion. 3. Cholelithiasis without CT evidence of acute cholecystitis. 4. Incidental small right middle lobe pleural based pulmonary nodules are proba eulalio inflammatory but could be followed in 12 months to assure stability. 5. Chronic changes include dense generalized atherosclerotic vascular calcification without aneurysm, nonobstructive bilateral renal calculi, aortic valve replacement, prostate hypertrophy Dictated by: Eliseo uRdolph M.D. on 03/07/2021 at 10:44 ECG Data Attestation: I personally reviewed and interpreted this ECG as follows: Interpretation: Paced rhythm rate [address] changes MDM Narrative Medical decision making narrative: 1. Streptococcus salivarius spp s M.I.C. RX --------- --- * Ampicillin <=0.06 S * Vancomycin S * Ceftriaxone 0.25 S * Clindamycin <=0.25 S * Erythromycin <=0.12 S * Levofloxacin I * Linezolid <=2 S * Penicillin <=0.06 S * Tetracycline <=0.25 S Patient overall appears well and not septic but does have for positive blood cultures of strep. It is sensitive to Rocephin. He has absolutely no abdominal pain no sign of acute cholecystitis no pulmonary etiology urine is clear. Discussed case with he is in ED to see and evaluate patient. Agrees with admission. Discharge Plan Departure Patient Disposition: Admitted As Inpatient Clinical Impression: Bacteremia Admit Date/Time: 03/07/21 12:20 Admit Provider: Deep Burdick
--- NOTE | 2021-03-07 11:04 | PC.NURSE ---
PIV x2 attempt unsuccessful
[2021-03-07 11:11] LABS: Add Manual Diff / Slide Review NO; Basophils Absolute Auto 0 /uL (0-100); Basophils Percent Auto 0.5 % (0-2); Eosinophils Absolute Auto 100 /uL (0-450); Hematocrit 32.1 % (41-53); Hemoglobin 10.8 g/dL (13.5-17.5); Lymphocytes Absolute Auto 1000 /uL (1100-4500); Lymphocytes Percent Auto 12.8 % (25-40); Mean Corpuscular HGB Conc 33.8 % (30-36); Mean Corpuscular Hemoglobin 30.2 PG (26-34); Mean Corpuscular Volume 89.2 fL (80-100); Monocytes Absolute Auto 1000 /uL (0-900); Monocytes Percent Auto 13.6 % (3-14); Neutrophils Absolute Auto 5400 /uL (1500-7000); Neutrophils Percent Auto 72.1 % (50-75); Platelet Count 198 X10^3/uL (150-400); Red Blood Cell Count 3.59 X10^6/uL (4.5-5.9); Red Cell Distribution Width 15.2 % (11.6-14.8); White Blood Cell Count 7.5 X10^3/uL (4.5-11.0)
[2021-03-07] MEDS: CEFTRIAXONE 1 GM/50 ML FROZ.PIGGY IV (11:13)
[2021-03-07 11:21] LABS: Appearance Urine UA CLEAR; Bilirubin Urine UA NEGATIVE (NEGATIVE); Color Urine UA YELLOW; Glucose Urine UA NEGATIVE (Negative); Ketones Urine UA NEGATIVE (NEGATIVE); Leukocyte Esterase Urine UA NEGATIVE (NEGATIVE); Nitrite Urine UA NEGATIVE (Negative); Occult Blood Urine UA TRACE-INTACT (Negative); Protein Urine UA NEGATIVE (Negative); Urobilinogen Urine UA 0.2 E.U./dL (0.2)
[2021-03-07 11:22] LABS: Alanine Aminotransferase 182 IU/L (<50); Albumin Globulin Ratio 1.3 (1.0-2.8); Alkaline Phosphatase 97 U/L (38-126); Aspartate Aminotransferase 107 IU/L (17-59); BUN Creatinine Ratio 19.2 (6-22); Bilirubin Total 0.6 mg/dL (0.2-1.3); Blood Urea Nitrogen 20 mg/dL (9-20); Calcium 9.5 mg/dL (8.4-10.2); Carbon Dioxide 28 mmol/L (22-32); Chloride 100 mmol/L (98-107); Creatine Kinase 43 U/L (55-170); Estimated Glomerular Filt Rate > 60.0 mL/min (>60); Globulin 3.1 g/dL (1.7-4.1); Glucose 101 mg/dL (80-110); HEMOLYSIS < 15 (0-50); Lipase 141 U/L (23-300); Potassium 4.3 mmol/L (3.4-5.1); Sodium 136 mmol/L (137-145); Total Protein 7.1 g/dL (6.3-8.2)
[2021-03-07 11:31] LABS: Bacteria Urine Occasional (0-1); Culture Indicated Urine Cult Not Indicated; RBC Urine 0-1/HPF (0-5/HPF); WBC Urine 0-1/HPF (0-5/HPF)
[2021-03-07 11:34] LABS: Troponin I 0.027 ng/mL (0.01-0.034)
[2021-03-07 11:39] LABS: Procalcitonin 0.26 ng/mL (<0.5)
[2021-03-07 12:11] LABS: COVID19 - ADMIT (NP swab/PCR) Negative (Negative)
--- NOTE | 2021-03-07 13:16 | DI.ECHO.S_ITS ---
Version: 1 Study ID: [id number] [place] [address] Name: MARI MATHEW Study Date: 03/08/2021, 1: 00 PM : 1945 BP: 119 / 57 mmHg Gender: Male Height: 75 in Age: 75 Years Weight: 217 lb BSA: 2.27 mA? Ordering: farzaneh gregg Referring: FARZANEH GREGG Clinician: Cristian Austin Reason For Study: Endocarditis History: Summary Statements Normal sinus rhythm. Normal LV size and wall thickness. There is apical hypokinesis and septal dyskinesis. EF is 45-50%. Stage I diastolic dysfunction. Severe LA enlargement; mild RA enlargeent. Pt is s/p TAVR 11/2018. There is mild valvular stenosis and mild - moderate paravalvular leak. Peak velocity is 3.2 m/sec with mean gradient of 27 mm Hg. Mild MAC; otherwise no valvular abnormalities. In particular, there are no obvious vegetations. Compared to prior study performed 12/07/2019 in [place], paravalvular leak is actually better. It was previously described as being severe. Cardiomyopathy is stable. Procedure: A two-dimensional transthoracic echocardiogram with color flow and Doppler was performed. The study quality was technically difficult. A contrast injection of Definity was performed to improve assessment of LV function. Comparison is made with the echocardiogram of 06/21/2018. The patient was in sinus rhythm with heart rates between 60-65 bpm during the exam. Left Ventricle: Diastolic function could not be accurately assessed due to unobtainable data. Left ventricular systolic function is mildly reduced. The ejection fraction is estimated to be 45-50%. The left ventricle is mildly dilated. Left ventricular wall thickness is mildly increased. The left ventricle is not well visualized. Right Ventricle: The right ventricle is normal in size and function. Atria: There is no Doppler evidence for an interatrial shunt. Both atria are moderately dilated. Mitral Valve: There is no obvious vegetation seen on the mitral valve. There is moderate mitral regurgitation. There is mild mitral annular calcification. Aortic Valve: There is a TAVR aortic valve. There is mild to moderate perivalvular regurgitation around the prosthetic aortic valve. The aortic valve mean gradient is 27 mmHg. There is no obvious aortic valvular vegetation. Tricuspid Valve: There is no tricuspid valve vegetation. There is a trace or physiologic amount of tricuspid regurgitation. Pulmonary artery pressures cannot be estimated because of the lack of a measurable TR jet velocity but the IVC suggests a CVP of around 3 mmHg. The tricuspid valve is normal in structure and function. Pulmonic Valve: There is trace pulmonic regurgitation. The pulmonic valve is not well visualized. Great Vessels: The ascending aorta could not be visualized. The aortic root is not well visualized. The IVC is of normal diameter and collapses greater than 50% with a sniff. This suggests a low right atrial pressure of 3 mm Hg. Pericardium/ Pleura: There is no pericardial effusion. There is no pleural effusion. 2D and M-Mode Measurements and Calculations LVIDd: 6.0 cm LVIDs: 4.6 cm IVSd: 1.34 cm LVPWd: 0.95 cm LV shannon. diameter/BSA (cm/m^2): 2.6 LV sys. 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 RA area: 23.2 life insurance agent? LA A2 area: 25.7 life insurance agent? RA long axis: 5.9 cm LA length (vol): 6.0 cm RA vol: 78.2 ml LA vol: 101.9 ml RA : 34.4 ml/mA? LA vol index: 44.9 ml/mA? Doppler Measurements and Calculations Ao V2 max: 323.2 cm/sec LVOT Max Mo: 108.6 cm/sec Ao V2 mean: 248.3 cm/sec LV V1 max P.7 mmHg Ao V2 VTI: 70.4 cm LV V1 VTI: 23.7 cm Ao max P.8 mmHg Ao mean P.5 mmHg sev ratio: 0.34 AI P1/2t: 551.0 msec AI dec slope: 237.7 cm/secA? MV E max mo: 59.2 cm/sec MV dec time: 0.35 sec MV A max mo: 66.7 cm/sec MV E/A: 0.89 Med Peak E' Mo: 5.3 cm/sec Lat Peak E' Mo: 7.3 cm/sec E/e' average: 9.6 Electronically signed by: Lindy Blount M.D. 03/08/2021, 5: 09 PM
--- NOTE | 2021-03-07 13:51 | PC.NURSE ---
PT ADMITTED TO ROOM 224 WITH IN ATTENDANCE - REPORTS FEW WEEKS OF INCREASED FATIGUE AND DECREASED APPETITE ASSOCIATED WITH WEIGHT LOSS. THEY JUST TRAVELED HOME FROM [place], WHERE THEY SPEND THE [employer]. 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
--- NOTE | 2021-03-07 17:29 | P.HP_ITS ---
History of Present Illness History of Present Illness Date Patient Seen: 03/07/21 Time Patient Seen: 13:31 Chief complaint: staph in blood Narrative: Mr. Booker is a 75M with PMH of afib, CAD s/p stents, s/p TAVR, s/p PPM, HTN, HL who comes in to the hospital for bacteremia. He states that he was traveling a couple weeks ago and noticed he was weaker and more tired than normal. He developed a cough. It was mildly productive. He felt worse and developed fevers up to 104 and chills. He was seen as an outpatient who chinyere blood cultures that have become positive with staph salivarius in two bottles on 03/03. He then presented to the ER and had blood cultures that were positive on 03/04. He returned to the ER on 03/06 for these known blood cultures and was given IV antibiotics on 03/06 and sent with cefdinir. His blood cultures were again positive so was called back to the ER. He actually says today he feels improved, still coughing, but not as weak. No nausea, vomiting, diarrhea. No chest pain. Chest xray from 03/03 showed no acute process. Abdominal ultrasound from 03/06 showed gallstones with no murphys sign, and no pericholecystic fluid. In the ER today he was found to have normal vital signs. Labs notable for Hgb 10.8. AST 107, ALT 182. WBC normal, procalcitonin normal. Urinalysis unremarkable. CT chest/abdomen/pelvis showed possible infiltrate on the right lung, splenomegaly, and small pleural pulmonary nodules. He was given ceftriaxone and admitted for further treatment. Patient History Medical History Atrial fibrillation CAD (coronary atherosclerotic disease) (07/30/11) Melanoma Other and unspecified hyperlipidemia (07/30/11) Unspecified essential hypertension (07/30/11) Weight loss Surgical History S/P TAVR (transcatheter aortic valve replacement) Stented coronary artery Family & Social History Social History: household members spouse Safety & Behavioral: Feels Safe in Current Yes Environment Been Physically Hurt or No Threatened By a Person Suicidal Ideation Description None Suicide Plan Description No Plan Tobacco & Substance use: Tobacco type cigarettes Smoking Status Former smoker alcohol intake current alcohol intake frequency a few times a week Substance Use Type does not use Meds Home Medications and Allergies Home Medications Medication Instructions Recorded Confirmed Type multivitamin 1 cap PO DAILY #0 07/30/11 03/07/21 History rosuvastatin [Crestor] 20 mg PO DAILY #0 03/16/12 03/07/21 History apixaban 5 mg tablet 5 mg PO BID 08/21/19 03/07/21 History lisinopril 10 mg tablet 10 mg PO BID 08/21/19 03/07/21 History NITROGLYCERIN (#NITROSTAT) 0.4 mg SUBLINGUAL PRN 08/22/19 03/07/21 History chlorthalidone 12.5 mg PO Q OTHER DAY 08/22/19 03/07/21 History magnesium 1 tab PO DAILY 08/22/19 03/07/21 History furosemide [Lasix] 20 mg PO DAILY 06/18/20 03/07/21 History cefdinir 300 mg PO Q12H #20 cap 03/06/21 03/07/21 Rx metoprolol succinate 50 mg PO DAILY 03/07/21 03/07/21 History Allergies Allergy/AdvReac Type Severity Reaction Status Date / Time clopidogrel [From PLAVIX] Allergy Severe hosipitaliz Verified 03/07/21 10:37 ation procaine [PROCAINE] Allergy Mild NUMBNESS Verified 03/07/21 10:37 WILL NOT WEAR OFF PER PATIENT Review of Systems Review of Systems Narrative: 14 systems reviewed and negative aside from HPI Exam Vital Signs (past 8 hours): - 03/07/21 10:30 03/07/21 11:43 03/07/21 11:45 Temperature 98.2 F Pulse Rate 60 60 61 Respiratory Rate 14 16 16 Blood Pressure 141/65 H 133/60 133/60 Pulse Oximetry 97 99 98 03/07/21 12:00 03/07/21 12:30 03/07/21 12:55 Temperature 97 F L Pulse Rate 60 57 L 57 L Respiratory Rate 15 Blood Pressure 132/61 Pulse Oximetry 96 97 99 03/07/21 17:21 Temperature 97.7 F Pulse Rate 59 L Respiratory Rate 17 Blood Pressure 130/63 Pulse Oximetry 98 Oxygen Delivery Method Room Air Oxygen Flow Rate 0 Narrative Exam Narrative: GEN: no acute distress, appears mildly fatigued HEENT: moist mucous membranes, has multiple tooth replacements, has teeth with significant gum retraction, no pain to palpation, no erythema, pus, area of induration appreciated, no sinus tenderness NECK: no jvd, trachea midline Chest: pacer outline palpable, no erythema noted CV: RRR with no murmurs PULM: mildly coarse breath sounds, no wheezes, or rales ABD: soft, nontender, nondistended, no organomegaly EXT: warm and well perfused NEURO: Awake and alert, moving all extremities Skin: no rashes noted Objective Labs Result Diagrams: 03/07/21 10:35 03/07/21 10:35 Labs: Laboratory Results - last 24 hr 03/07/21 03/07/21 03/07/21 10:35 10:35 10:35 WBC 7.5 RBC 3.59 L Hgb 10.8 L Hct 32.1 L MCV 89.2 MCH 30.2 MCHC 33.8 RDW 15.2 H Plt Count 198 Neut % (Auto) 72.1 Lymph % (Auto) 12.8 L [place] % (Auto) 13.6 Eos % (Auto) 1.0 L Baso % (Auto) 0.5 Neut # (Auto) 5400 Lymph # (Auto) 1000 L [place] # (Auto) 1000 H Eos # (Auto) 100 Baso # (Auto) 0 Sodium 136 L Potassium 4.3 Chloride 100 Carbon Dioxide 28 BUN 20 Creatinine 1.04 Estimated GFR > 60.0 BUN/Creatinine Ratio 19.2 Glucose 101 Lactate 1.0 Calcium 9.5 Total Bilirubin 0.6 AST 107 H ALT 182 H Alkaline Phosphatase 97 Total Creatine Kinase 43 L CK-MB (CK-2) TNP CK-MB (CK-2) Rel Index TNP Troponin I 0.027 Total Protein 7.1 Albumin 4.0 Globulin 3.1 Albumin/Globulin Ratio 1.3 Lipase 141 Procalcitonin 0.26 Urine Color Urine Appearance Urine pH Ur Specific [place] Urine Protein Urine Glucose (UA) Urine Ketones Urine Occult Blood Urine Nitrate Urine Bilirubin Urine Urobilinogen Ur Leukocyte Esterase Urine RBC Urine WBC Urine Bacteria Ur Culture Indicated? SARS-CoV-2 (PCR) 03/07/21 03/07/21 11:12 11:15 WBC RBC Hgb Hct MCV MCH MCHC RDW Plt Count Neut % (Auto) Lymph % (Auto) [place] % (Auto) Eos % (Auto) Baso % (Auto) Neut # (Auto) Lymph # (Auto) [place] # (Auto) Eos # (Auto) Baso # (Auto) Sodium Potassium Chloride Carbon Dioxide BUN Creatinine Estimated GFR BUN/Creatinine Ratio Glucose Lactate Calcium Total Bilirubin AST ALT Alkaline Phosphatase Total Creatine Kinase CK-MB (CK-2) CK-MB (CK-2) Rel Index Troponin I Total Protein Albumin Globulin Albumin/Globulin Ratio Lipase Procalcitonin Urine Color Yellow Urine Appearance Clear Urine pH 6.0 Ur Specific [place] 1.020 Urine Protein Negative Urine Glucose (UA) Negative Urine Ketones Negative Urine Occult Blood Trace-intact Urine Nitrate Negative Urine Bilirubin Negative Urine Urobilinogen 0.2 Ur Leukocyte Esterase Negative Urine RBC 0-1/hpf Urine WBC 0-1/hpf Urine Bacteria Occasional (0-1) Ur Culture Indicated? Cult not indicated SARS-CoV-2 (PCR) Negative Assessment & Plan Assessment & Plan narrative: Mr. Dietz is 75M with PMH CAD, s/p PPM, s/p TAVR, atrial fibrillation who presents with cough, fevers found to have probable pneumonia and strep salivarious bacteremia. 1. Bacteremia, acute -noted to be positive with strep salivarius on 03/03 -also positive for GPC on 03/04, 03/06 presumed to be same bacteria -first dose of antibiotics in ER on 03/06 -blood cultures pending from 03/07 -sensitive to ceftriaxone on microbiology -ordered for ceftriaxone 2gm daily -etiology is likely pneumonia, vs dental, also associated with malignancy and cirrhosis, patient has no known malignancy/cirrhosis -will need to rule out endocarditis with ECHO -may need ID consult, and ISIDORO pending results 2. Probable pneumonia, acute -clinically has fever and cough -CT chest showed questionable infiltrates -possibly the source of bacteremia -order sputum culture 3. Transaminitis, mild -etiology unclear -otherwise has noted splenomegaly on imaging -hepatitis serologies ordered -continuing trending 3.Atrial fibrillation, chronic -continue home dose of metoprolol and home apixaban 4. HTN -will hold chlorthalidone and lisinopril 5. CAD s/p stents and s/p TAVR and s/p PPM -patient asymptomatic currently -will continue statin at home dose 6. Incidental findings of small pulmonary nodule -recommended follow up CT within a year 7. Gallstones -asymptomatic -no evidence of infected gallbladder on exam, or imaging 8. Anemia -mild, hgb 10.8, normal MCV -continue to monitor -no indication for transfusion Diet: Cardiac IVF: None DVT ppx: full dose apixaban Code: Full, proxy is Ana TORRES - Admit I confirm the patient?s Advance Care Plan is present, Code status is documented, Surrogate decision maker is in patient?s record [If Yes, STOP here]: Yes
[2021-03-07] MEDS: APIXABAN 5 MG TABLET PO (20:17)
[2021-03-07] MEDS: lisinopriL 10 MG TABLET PO (20:17)
[2021-03-07] MEDS: SODIUM CHLORIDE 0.9% 250 ML 21 ML IV (21:33)
[2021-03-07] MEDS: CEFTRIAXONE 2 GM/50 ML FROZ.PIGGY IV (21:34)
[2021-03-07] MEDS: SODIUM CHLORIDE 0.9% FLUSH 10 ML IV (22:08)
[2021-03-08] VITALS (8 sets, daily range): BP systolic 114–142; BP diastolic 55–63; PULSE 57–73; RESP 16–18; TEMP 36.1–37.2; O2SAT 94–97
[2021-03-08 06:31] LABS: Add Manual Diff / Slide Review NO; Basophils Absolute Auto 0 /uL (0-100); Basophils Percent Auto 0.4 % (0-2); Eosinophils Absolute Auto 100 /uL (0-450); Eosinophils Percent Auto 1.2 % (2-4); Hematocrit 30.1 % (41-53); Hemoglobin 10.3 g/dL (13.5-17.5); Lymphocytes Absolute Auto 1000 /uL (1100-4500); Lymphocytes Percent Auto 11.9 % (25-40); Mean Corpuscular HGB Conc 34.1 % (30-36); Mean Corpuscular Hemoglobin 30.1 PG (26-34); Mean Corpuscular Volume 88.5 fL (80-100); Monocytes Absolute Auto 1000 /uL (0-900); Monocytes Percent Auto 11.8 % (3-14); Neutrophils Absolute Auto 6400 /uL (1500-7000); Neutrophils Percent Auto 74.7 % (50-75); Platelet Count 185 X10^3/uL (150-400); Red Blood Cell Count 3.41 X10^6/uL (4.5-5.9); Red Cell Distribution Width 15.4 % (11.6-14.8); White Blood Cell Count 8.6 X10^3/uL (4.5-11.0)
[2021-03-08 06:39] LABS: Alanine Aminotransferase 164 IU/L (<50); Albumin 3.6 g/dL (3.5-5.0); Albumin Globulin Ratio 1.2 (1.0-2.8); Alkaline Phosphatase 85 U/L (38-126); Aspartate Aminotransferase 87 IU/L (17-59); Bilirubin Total 0.3 mg/dL (0.2-1.3); Bilirubin Unconjugated 0.2 mg/dL (0.0-1.1); Globulin 2.9 g/dL (1.7-4.1); HEMOLYSIS < 15 (0-50); Total Protein 6.5 g/dL (6.3-8.2)
[2021-03-08 06:40] LABS: BUN Creatinine Ratio 23.3 (6-22); Blood Urea Nitrogen 21 mg/dL (9-20); Calcium 9.3 mg/dL (8.4-10.2); Carbon Dioxide 29 mmol/L (22-32); Chloride 100 mmol/L (98-107); Estimated Glomerular Filt Rate > 60.0 mL/min (>60); Glucose 106 mg/dL (80-110); HEMOLYSIS < 15 (0-50); Potassium 4.5 mmol/L (3.4-5.1); Sodium 135 mmol/L (137-145)
[2021-03-08] MEDS: APIXABAN 5 MG TABLET PO ×2 (08:14→21:03)
[2021-03-08] MEDS: METOPROLOL ER 50 MG TABLET PO (08:14)
[2021-03-08] MEDS: lisinopriL 10 MG TABLET PO ×2 (08:14→21:03)
--- NOTE | 2021-03-08 09:35 | P.PN_ITS ---
Subjective Subjective Date Patient Seen: 03/08/21 Interval history: He is up and walking in the room, looking unaffected by his bacteremia. Clearly the antibiotics have worked quite quickly. He has many questions. He is not used to this type of interruption in his busy life and is obviously used to ?being in charge.? We discussed that he goes to Dr. Sherri rey for primary care and to Dr. Huber for Cardiology. He has a loud heart murmur. That may be related to the TAVR. His AST has dropped from 107 down to 87. The ALT has dropped from 182 down to 164. The hemoglobin has dropped from 10.8 down to 10.3. Exam Vital Signs (past 8 hours): - 03/08/21 04:29 03/08/21 08:00 Temperature 97.7 F 97.6 F Pulse Rate 64 73 Respiratory Rate 18 18 Blood Pressure 114/55 L 119/57 L Pulse Oximetry 95 94 Oxygen Delivery Method Room Air Oxygen Flow Rate 0 Narrative Exam Narrative: He is alert and oriented x3, in no apparent distress. He is up and walking around the room. Heart is regular rate and rhythm with a 3/6 holosystolic murmur Lungs are clear to auscultation bilaterally Extremities have no ankle edema Skin has no rash. Objective Labs Result Diagrams: 03/08/21 06:19 03/08/21 06:19 Labs: Laboratory Results - last 24 hr 03/07/21 03/07/21 03/07/21 10:35 10:35 10:35 WBC 7.5 RBC 3.59 L Hgb 10.8 L Hct 32.1 L MCV 89.2 MCH 30.2 MCHC 33.8 RDW 15.2 H Plt Count 198 Neut % (Auto) 72.1 Lymph % (Auto) 12.8 L [place] % (Auto) 13.6 Eos % (Auto) 1.0 L Baso % (Auto) 0.5 Neut # (Auto) 5400 Lymph # (Auto) 1000 L [place] # (Auto) 1000 H Eos # (Auto) 100 Baso # (Auto) 0 Sodium 136 L Potassium 4.3 Chloride 100 Carbon Dioxide 28 BUN 20 Creatinine 1.04 Estimated GFR > 60.0 BUN/Creatinine Ratio 19.2 Glucose 101 Lactate 1.0 Calcium 9.5 Total Bilirubin 0.6 Conjugated Bilirubin Unconjugated Bilirubin AST 107 H ALT 182 H Alkaline Phosphatase 97 Total Creatine Kinase 43 L CK-MB (CK-2) TNP CK-MB (CK-2) Rel Index TNP Troponin I 0.027 Total Protein 7.1 Albumin 4.0 Globulin 3.1 Albumin/Globulin Ratio 1.3 Lipase 141 Procalcitonin 0.26 Urine Color Urine Appearance Urine pH Ur Specific [place] Urine Protein Urine Glucose (UA) Urine Ketones Urine Occult Blood Urine Nitrate Urine Bilirubin Urine Urobilinogen Ur Leukocyte Esterase Urine RBC Urine WBC Urine Bacteria Ur Culture Indicated? SARS-CoV-2 (PCR) 03/07/21 03/07/21 03/08/21 11:12 11:15 06:19 WBC 8.6 RBC 3.41 L Hgb 10.3 L Hct 30.1 L MCV 88.5 MCH 30.1 MCHC 34.1 RDW 15.4 H Plt Count 185 Neut % (Auto) 74.7 Lymph % (Auto) 11.9 L [place] % (Auto) 11.8 Eos % (Auto) 1.2 L Baso % (Auto) 0.4 Neut # (Auto) 6400 Lymph # (Auto) 1000 L [place] # (Auto) 1000 H Eos # (Auto) 100 Baso # (Auto) 0 Sodium Potassium Chloride Carbon Dioxide BUN Creatinine Estimated GFR BUN/Creatinine Ratio Glucose Lactate Calcium Total Bilirubin Conjugated Bilirubin Unconjugated Bilirubin AST ALT Alkaline Phosphatase Total Creatine Kinase CK-MB (CK-2) CK-MB (CK-2) Rel Index Troponin I Total Protein Albumin Globulin Albumin/Globulin Ratio Lipase Procalcitonin Urine Color Yellow Urine Appearance Clear Urine pH 6.0 Ur Specific [place] 1.020 Urine Protein Negative Urine Glucose (UA) Negative Urine Ketones Negative Urine Occult Blood Trace-intact Urine Nitrate Negative Urine Bilirubin Negative Urine Urobilinogen 0.2 Ur Leukocyte Esterase Negative Urine RBC 0-1/hpf Urine WBC 0-1/hpf Urine Bacteria Occasional (0-1) Ur Culture Indicated? Cult not indicated SARS-CoV-2 (PCR) Negative 03/08/21 03/08/21 06:19 06:19 WBC RBC Hgb Hct MCV MCH MCHC RDW Plt Count Neut % (Auto) Lymph % (Auto) [place] % (Auto) Eos % (Auto) Baso % (Auto) Neut # (Auto) Lymph # (Auto) [place] # (Auto) Eos # (Auto) Baso # (Auto) Sodium 135 L Potassium 4.5 Chloride 100 Carbon Dioxide 29 BUN 21 H Creatinine 0.90 Estimated GFR > 60.0 BUN/Creatinine Ratio 23.3 H Glucose 106 Lactate Calcium 9.3 Total Bilirubin 0.3 Conjugated Bilirubin 0.0 Unconjugated Bilirubin 0.2 AST 87 H ALT 164 H Alkaline Phosphatase 85 Total Creatine Kinase CK-MB (CK-2) CK-MB (CK-2) Rel Index Troponin I Total Protein 6.5 Albumin 3.6 Globulin 2.9 Albumin/Globulin Ratio 1.2 Lipase Procalcitonin Urine Color Urine Appearance Urine pH Ur Specific [place] Urine Protein Urine Glucose (UA) Urine Ketones Urine Occult Blood Urine Nitrate Urine Bilirubin Urine Urobilinogen Ur Leukocyte Esterase Urine RBC Urine WBC Urine Bacteria Ur Culture Indicated? SARS-CoV-2 (PCR) [facility] Medical History Atrial fibrillation CAD (coronary atherosclerotic disease) (07/30/11) Melanoma Other and unspecified hyperlipidemia (07/30/11) Unspecified essential hypertension (07/30/11) Weight loss Surgical History S/P TAVR (transcatheter aortic valve replacement) Stented coronary artery Social History household members: spouse Smoking Status: Former smoker alcohol intake: current Assessment & Plan Assessment & Plan narrative: Mr. Dietz is 75M with H CAD, s/p PPM, s/p TAVR, atrial fibrillation who presented with cough and fevers and was found to have probable pneumonia and strep salivarious bacteremia. 1. Bacteremia, acute -noted to be BC positive with strep salivarius on 03/03 -also positive for GPC on 03/04, 03/06 presumed to be same bacteria -first dose of antibiotics in ER on 03/06 -blood cultures pending from 03/07 -sensitive to ceftriaxone on microbiology -continue ceftriaxone 2gm daily -etiology is likely pneumonia, vs dental, also associated with malignancy and cirrhosis, patient has no known malignancy/cirrhosis -echocardiogram has been done and the reading is pending. The history of TAVR and the loud murmur is concerning for endocarditis as a source. -may need ID consult, and ISIDORO pending results 2. Probable pneumonia, acute -clinically has fever and cough -CT chest showed questionable infiltrates -possibly the source of bacteremia -order sputum culture 3. Transaminitis, mild -etiology unclear -otherwise has noted splenomegaly on imaging -hepatitis serologies ordered -continuing trending 3.Atrial fibrillation, chronic -continue home dose of metoprolol and home apixaban 4. HTN -will hold chlorthalidone and lisinopril 5. CAD s/p stents and s/p TAVR and s/p PPM -patient asymptomatic currently -will continue statin at home dose 6. Incidental findings of small pulmonary nodule -recommended follow up CT within a year 7. Gallstones -asymptomatic -no evidence of infected gallbladder on exam, or imaging 8. Anemia -mild, hgb 10.8, normal MCV -continue to monitor, 10.3 on 03/08 -no indication for transfusion Diet: Cardiac IVF: None DVT ppx: full dose apixaban Code: Full, proxy is Ana
--- NOTE | 2021-03-08 13:39 | CM.IDA ---
Initial DCP Assessment Note Pt is a 75 yo male, resident of [place], arrives with cough and fevers and found to have probable pneumonia and strep salivarious bacteremia. Ongoing IV abx are likely needed, echo pending to r/o endocarditis. PCP: Sherri Waggoner Payer: [facility]/[place] Met w/patient and his Ana at bedside this morning, introduced role. Patient/spouse just returned from a road trip from [place], through multiple states where they stopped to see friends and family. Patient developed flu like symptoms during road trip and thought he was just catching a cold. Patient and spouse are indp and active at baseline. Reviewed, briefly, the likelihood that patient would require ongoing IV abx to treat this infection, echo still pending to r/o endocarditis (if confirmed patient would require transfer) and patient felt he could come in to an infusion suite if needed and IV abx were only 1-2x daily Following closely and will wait to see how medical POC unfolds before coordinating DCP further HILARIO Ramirez Discharge Planning/Care Management CM Discharge Assessment Start: 03/08/21 13:33 Freq: Status: Active Protocol: Document 03/08/21 13:33 JAD (Rec: 03/08/21 13:39 [id number]) Discharge Planning Assessment Assigned [employer] HILARIO Yi DPOA/Assigned Designee Name Ana Dietz, spouse Contact Information [phone] Advance Directives? Yes Advance Directives on File No History Provided By Patient,Significant Other Household Members spouse Type of transporation used prior to Drives own vehicle admit Independent with ADL's Yes Is patient alert and oriented? Yes Barriers to Discharge Yes Comment May require ongoing IV abx for strep salivarious bacteremia Discharge Plan Home Community Services IV Therapy Transportation Arrangement Spouse Additional Comment Pending Whiteboard Updated in Patient Room with Yes name and ext. # of [employer] Review Status In Process
--- NOTE | 2021-03-08 14:06 | PC.NURSE ---
Am shift Pt is ambulatory in halls with spouse, awaiting ECHO to be done today. IV SL, RA, no CP. Feels that weakness is almost resolved. Eating well, no nausea. Voiding to BR. Afebrile. Pt pacing later in shift, you are sure I need to be here to have this test read? Reassured. Continue to wait for echo results.
[2021-03-08] MEDS: ATORVASTATIN 20 MG TABLET 40 MG PO (21:03)
[2021-03-08] MEDS: CEFTRIAXONE 2 GM/50 ML FROZ.PIGGY IV (22:24)
[2021-03-09 03:00] VITALS: BP 118/60; PULSE 60; RESP 18; TEMP 36.3; O2SAT 97
[2021-03-09 06:33] LABS: Add Manual Diff / Slide Review NO; Basophils Absolute Auto 100 /uL (0-100); Eosinophils Absolute Auto 100 /uL (0-450); Eosinophils Percent Auto 1.4 % (2-4); Hematocrit 32.7 % (41-53); Lymphocytes Absolute Auto 1200 /uL (1100-4500); Lymphocytes Percent Auto 12.4 % (25-40); Mean Corpuscular HGB Conc 33.6 % (30-36); Mean Corpuscular Hemoglobin 29.8 PG (26-34); Mean Corpuscular Volume 88.8 fL (80-100); Monocytes Absolute Auto 900 /uL (0-900); Monocytes Percent Auto 9.2 % (3-14); Neutrophils Absolute Auto 7100 /uL (1500-7000); Platelet Count 196 X10^3/uL (150-400); Red Blood Cell Count 3.68 X10^6/uL (4.5-5.9); Red Cell Distribution Width 15.1 % (11.6-14.8); White Blood Cell Count 9.4 X10^3/uL (4.5-11.0)
[2021-03-09 06:44] LABS: BUN Creatinine Ratio 20.9 (6-22); Blood Urea Nitrogen 19 mg/dL (9-20); Calcium 9.7 mg/dL (8.4-10.2); Carbon Dioxide 30 mmol/L (22-32); Chloride 100 mmol/L (98-107); Estimated Glomerular Filt Rate > 60.0 mL/min (>60); Glucose 104 mg/dL (80-110); HEMOLYSIS < 15 (0-50); Potassium 4.6 mmol/L (3.4-5.1); Sodium 137 mmol/L (137-145)
--- NOTE | 2021-03-09 07:30 | PM.PN.1 ---
Subjective Subjective Date Patient Seen: 03/09/21 Exam Vital Signs (past 8 hours): - 03/08/21 23:50 03/09/21 03:00 Temperature 99 F 97.4 F L Pulse Rate 57 L 60 Respiratory Rate 18 18 Blood Pressure 120/58 L 118/60 Pulse Oximetry 95 97 Oxygen Delivery Method Room Air Oxygen Flow Rate 0 Objective Labs Result Diagrams: 03/09/21 06:18 03/09/21 06:18 Labs: Laboratory Results - last 24 hr 03/09/21 03/09/21 06:18 06:18 WBC 9.4 RBC 3.68 L Hgb 11.0 L Hct 32.7 L MCV 88.8 MCH 29.8 MCHC 33.6 RDW 15.1 H Plt Count 196 Neut % (Auto) 76.0 H Lymph % (Auto) 12.4 L [place] % (Auto) 9.2 Eos % (Auto) 1.4 L Baso % (Auto) 1.0 Neut # (Auto) 7100 H Lymph # (Auto) 1200 [place] # (Auto) 900 Eos # (Auto) 100 Baso # (Auto) 100 Sodium 137 Potassium 4.6 Chloride 100 Carbon Dioxide 30 BUN 19 Creatinine 0.91 Estimated GFR > 60.0 BUN/Creatinine Ratio 20.9 Glucose 104 Calcium 9.7 PFSH Medical History Atrial fibrillation CAD (coronary atherosclerotic disease) (07/30/11) Melanoma Other and unspecified hyperlipidemia (07/30/11) Unspecified essential hypertension (07/30/11) Weight loss Surgical History S/P TAVR (transcatheter aortic valve replacement) Stented coronary artery Social History household members: spouse Smoking Status: Former smoker alcohol intake: current
[2021-03-09 07:40] VITALS: BP 124/60; PULSE 75; RESP 18; TEMP 36.6; O2SAT 97
[2021-03-09 08:36] LABS: Hepatitis A Ab Total Negative (Negative)
[2021-03-09] MEDS: APIXABAN 5 MG TABLET PO (08:48)
[2021-03-09 08:50] VITALS: BP 124/60; PULSE 74
[2021-03-09] MEDS: METOPROLOL ER 50 MG TABLET PO (08:50)
[2021-03-09] MEDS: lisinopriL 10 MG TABLET PO (08:50)
[2021-03-09 11:18] LABS: Hepatitis B Surf Ab Qualitativ Non Reactive (.)
[2021-03-09 11:18] LABS: Hepatitis B Core Antibody Negative (Negative)
--- NOTE | 2021-03-09 11:58 | P.DS_ITS ---
History of Present Illness History of Present Illness Date Patient Seen: 03/09/21 Time Patient Seen: 11:58 Chief complaint: staph in blood Narrative: Mr. Booker is a 75M with PMH of afib, CAD s/p stents, s/p TAVR, s/p PPM, HTN, HL who comes in to the hospital for bacteremia. He states that he was traveling a couple weeks ago and noticed he was weaker and more tired than normal. He developed a cough. It was mildly productive. He felt worse and developed fevers up to 104 and chills. He was seen as an outpatient who chinyere blood cultures that have become positive with staph salivarius in two bottles on 03/03. He then presented to the ER and had blood cultures that were positive on 03/04. He returned to the ER on 03/06 for these known blood cultures and was given IV antibiotics on 03/06 and sent with cefdinir. His blood cultures were again positive so was called back to the ER. He actually says today he feels improved, still coughing, but not as weak. No nausea, vomiting, diarrhea. No chest pain. Chest xray from 03/03 showed no acute process. Abdominal ultrasound from 03/06 showed gallstones with no murphys sign, and no pericholecystic fluid. In the ER today he was found to have normal vital signs. Labs notable for Hgb 10.8. AST 107, ALT 182. WBC normal, procalcitonin normal. Urinalysis unremarkable. CT chest/abdomen/pelvis showed possible infiltrate on the right lung, splenomegaly, and small pleural pulmonary nodules. He was given ceftriaxone and admitted for further treatment. Discharge Providers Provider Date of admission: 03/07/21 12:20 Discharge Date: 03/09/21 Primary care physician: Sherri Waggoner MD Consults: 03/09/21 11:48 Consult After Hours PICC Line RN Routine Comment: Discharge provider: Iesha Ruiz MD Summary Hospital Course Discharge Diagnosis: 1. Bacteremia - Strep Salivarium 2. Possible pneumonia 3. Transaminitis, mild 3. Atrial fibrillation 4. HTN 5. CAD s/p stents and s/p TAVR and s/p PPM 6. Incidental findings of small pulmonary nodule 7. Gallstones 8. Anemia Hospital Course: Mr. Dietz is 75M with PMH CAD, s/p PPM, s/p TAVR, atrial fibrillation who presented with cough and fevers and was found to have probable pneumonia and strep salivarious bacteremia. 1. Bacteremia, acute -noted to be BC positive with strep salivarius on 03/03, 03/04 and 03/06. Negative BC on 03/07. -first dose of antibiotics in ER on 03/06 -sensitive to ceftriaxone on microbiology -continue ceftriaxone 2gm daily for 2 weeks total - last day 03/21 -etiology is unclear: doubt pneumonia, vs dental, also associated with malignancy and cirrhosis, patient has no known malignancy/cirrhosis -echocardiogram shows no obvious vegetations -Recommend f/u with Dr. Waggoner this week for re-evaulation of potential bacteremia causes, consideration of colonoscopy referral to r/o colon cancer along with consideration of surgical referral to excise a large eroding sebaceous cyst on the sternal scar. 2. Possible acute pneumonia, acute -clinically has fever and cough -CT chest showed questionable infiltrates -possibly the source of bacteremia -did not produce any sputum to culture 3. Transaminitis, mild -etiology unclear -otherwise has noted splenomegaly on imaging -hepatitis serologies ordered 3.Atrial fibrillation, chronic -continue home dose of metoprolol and home apixaban 4. HTN -resume at discharge: chlorthalidone and lisinopril 5. CAD s/p stents and s/p TAVR and s/p PPM -patient asymptomatic currently -will continue statin at home dose -consider surgical referral for large eroding cyst in sternal scar, just above sternal wires. 6. Incidental findings of small pulmonary nodule -recommended follow up CT within a year 7. Gallstones -asymptomatic -no evidence of infected gallbladder on exam, or imaging 8. Anemia -mild, hgb 10.8, normal MCV -continue to monitor, 10.3 on 03/08, 11.0 on 03/09 -no indication for transfusion Exam Vital Signs (past 8 hours): - 03/09/21 07:40 03/09/21 08:50 Temperature 97.8 F Pulse Rate 75 74 Respiratory Rate 18 Blood Pressure 124/60 124/60 Pulse Oximetry 97 Oxygen Delivery Method Room Air Oxygen Flow Rate 0 Narrative Exam Narrative: He is alert and oriented x3. He is walking around the room. He does not appear ill or and needing of hospitalization. Heart is regular rate and rhythm with a 3/6 murmur from his TAVR. Lungs are clear to auscultation bilaterally Extremities have no ankle edema Skin there is a very large eroding sebaceous cyst directly over the sternal scar, possibly related to sternal wires? There is no tenderness there and there is no tenderness over the pacemaker on the left upper chest. Objective Labs Result Diagrams: 03/09/21 06:18 03/09/21 06:18 Labs: Laboratory Results - last 24 hr 03/07/21 03/07/21 03/08/21 10:35 10:35 06:19 WBC RBC Hgb Hct MCV MCH MCHC RDW Plt Count Neut % (Auto) Lymph % (Auto) [place] % (Auto) Eos % (Auto) Baso % (Auto) Neut # (Auto) Lymph # (Auto) [place] # (Auto) Eos # (Auto) Baso # (Auto) Sodium Potassium Chloride Carbon Dioxide BUN Creatinine Estimated GFR BUN/Creatinine Ratio Glucose Calcium Hepatitis A Total & IgM Negative Hep Bs Antibody Non reactive Hep B Core Total Ab Negative 03/09/21 03/09/21 06:18 06:18 WBC 9.4 RBC 3.68 L Hgb 11.0 L Hct 32.7 L MCV 88.8 MCH 29.8 MCHC 33.6 RDW 15.1 H Plt Count 196 Neut % (Auto) 76.0 H Lymph % (Auto) 12.4 L [place] % (Auto) 9.2 Eos % (Auto) 1.4 L Baso % (Auto) 1.0 Neut # (Auto) 7100 H Lymph # (Auto) 1200 [place] # (Auto) 900 Eos # (Auto) 100 Baso # (Auto) 100 Sodium 137 Potassium 4.6 Chloride 100 Carbon Dioxide 30 BUN 19 Creatinine 0.91 Estimated GFR > 60.0 BUN/Creatinine Ratio 20.9 Glucose 104 Calcium 9.7 Hepatitis A Total & IgM Hep Bs Antibody Hep B Core Total Ab [facility] Medical History Atrial fibrillation CAD (coronary atherosclerotic disease) (07/30/11) Melanoma Other and unspecified hyperlipidemia (07/30/11) Unspecified essential hypertension (07/30/11) Weight loss Surgical History S/P TAVR (transcatheter aortic valve replacement) Stented coronary artery Social History household members: spouse Smoking Status: Former smoker alcohol intake: current Discharge Plan Discharge Plan Patient Disposition: Home Provider Discharge Comment: Follow up with Dr. Waggoner on Wednesday 03/14 Continue daily IV antibiotic treatments of 2 gm Ceftriaxone for 2 weeks - last date 03/21 Discharge orders & Medications Prescriptions: New ceftriaxone in dextrose,iso-os 2 gram/50 mL Piggyback 2 gm IV 2200 12 Days RF: 0 Continued multivitamin Capsule 1 cap PO DAILY Qty: 0 RF: 0 rosuvastatin [Crestor] 20 MG tablet 20 mg PO DAILY Qty: 0 RF: 0 Eliquis 5 mg tablet 5 mg PO BID RF: 0 lisinopril 10 mg tablet 10 mg PO BID RF: 0 furosemide [Lasix] 20 mg Tablet 20 mg PO DAILY RF: 0 magnesium 1 tab PO DAILY RF: 0 chlorthalidone 25 mg Tablet 12.5 mg PO Q OTHER DAY RF: 0 NITROGLYCERIN (#NITROSTAT) 0.4 mg Sublingual PRN RF: 0 metoprolol succinate 50 mg Tablet Extended Release 24 Hr 50 mg PO DAILY RF: 0 Discontinued cefdinir 300 mg capsule 300 mg PO Q12H Qty: 20 RF: 0 Follow up/Referrals: Sherri Waggoner MD [Primary Care Provider] - Discharge Data Primary Care Provider: Sherri Waggoner
[2021-03-09] MEDS: CEFTRIAXONE 2 GM/50 ML FROZ.PIGGY IV (13:31)
[2021-03-09 13:36] VITALS: BP 136/64; PULSE 60
--- NOTE | 2021-03-09 14:52 | PC.NURSE ---
Day shift note: Patient discharged home as ordered. Rocephin Abx administered prior to discharge. Midline to [place] in place. Discharge instructions given to patient and spouse, discussed importance of F/U with Dr. Waggoner, daily Rocephin IVPB, and s/sx of worsening infections. Spouse and patient verbalized understanding of discharge instructions. Home via private vehicle accompanied by spouse.
--- NOTE | 2021-03-09 15:06 | CM.DPC ---
Addendum entered by Ivy Marie 03/10/21 12:07: Received confirmation from Infusion Center and spouse that patient scheduled to get first outpatient dose of IV therapy today. KJS Original Note: DCP/continued: Received verbal referral from provider this AM indicating that patient will need 2 weeks of IV abx. Midline line being placed today. Per prescription patient will need ceftriaxone 2 grams q24hrs. PUMP SERVICER HELPER met with patient and spouse/Ana this AM explained role. Patient currently I with ADL's. Patient requesting to go home today and return outpatient at [facility] for continued IV therapy. PUMP SERVICER HELPER unable to reach anyone today at infusion center. Therefore, obtained order, d/c summary, and Midline report faxed all to infusion clinic at [phone]. In addition, detailed message left requesting that they follow up with patient at home in AM. Dr. Ruiz, Nurse coordinator, RN, and pharmacy all aware and agreeable to plan. PUMP SERVICER HELPER provided Dr. Ruiz with name/number of patient's PCP (Dr. Sherri Waggoner) requesting that he call her prior to patient's discharge to update her on patient's outpatient IV abx. Per Dr. Ruiz called and PCP aware and agreeable to follow. P: Home today with IV infusion initiated with [facility]. All clinical has been faxed and received to Infusion Clinic. PUMP SERVICER HELPER will f/u in AM as needed. HILARIO Kessler
[2021-03-10 17:59] LABS: Hepatitis B Surface Antigen NEGATIVE s/c (NEGATIVE)
== END 2021-03-09 15:28 | disposition home or self-care (01) | DRG 871 ==
LOC: ED 12:19 → AC 12:21
PROVIDERS: Nurse Practitioner Family; Admitting Provider Internal Medicine; Emergency Provider Emergency Medicine; PCP Internal Medicine; Referring Provider Emergency Medicine; Visit Provider Internal Medicine
DX: R78.81 Bacteremia (principal); J18.9 Pneumonia, unspecified organism; I48.20 Chronic atrial fibrillation, unspecified; B95.4 Other streptococcus as the cause of diseases classified elsewhere; R74.01 Elevation of levels of liver transaminase levels; Z79.01 Long term (current) use of anticoagulants; I25.10 Atherosclerotic heart disease of native coronary artery without angina pectoris; Z95.9 Presence of cardiac and vascular implant and graft, unspecified; Z95.2 Presence of prosthetic heart valve; E78.5 Hyperlipidemia, unspecified; I10 Essential (primary) hypertension; Z87.891 Personal history of nicotine dependence; D64.9 Anemia, unspecified; Z20.822 Contact with and (suspected) exposure to COVID-19
CPT/HCPCS: 36415; 36569; 71260; 74177; 76705; 80048; 80053; 80076; 81001; 82550; 83605; 83690; 84145; 84484; 85025; 86704; 86706; 86708; 87040; 87070; 87205; 87340; 87522; 87635; 93005; 93010; 96365; 99284; C9803; C8929; J0696; J1642; Q9957; Q9967

== ENCOUNTER → 2021-04-05 11:12 | Outpatient (CLI) | payer MEDICARE, OTHER, SELFPAY ==
[2021-03-07 13:01] VITALS: BMI 27.1
[2021-04-05 12:27] LABS: COVID19 -Nasal RAPID Negative (Negative)
== END ==
PROVIDERS: PCP Internal Medicine; Visit Provider Physician Assistant
DX: Z01.812 Encounter for preprocedural laboratory examination (principal); Z20.822 Contact with and (suspected) exposure to COVID-19
CPT/HCPCS: 87635; C9803

== ENCOUNTER → 2021-04-07 15:01 | Outpatient (CLI) | payer MEDICARE, OTHER, SELFPAY ==
[2021-03-07 13:01] VITALS: BMI 27.1
--- NOTE | 2021-04-07 15:07 | DI.US.S_ITS ---
PROCEDURE: US PERIPH VENOUS UP EXTREM RT INDICATIONS: PICC line present Soft tissue swelling, clinical concern for deep vein thrombosis TECHNIQUE: Real-time imaging, as well as color and pulse Doppler interrogation, was performed of the right upper extremity deep veins from the inferior neck to the antecubital fossa. COMPARISON: None. FINDINGS: The internal jugular vein, visualized portions of the subclavian vein, axillary, and brachial veins are free of intraluminal thrombus. Where physically possible, the veins are normally compressible. Color and pulse Doppler demonstrate normal intraluminal flow, with expected phasicity and pulsatility. Additional scanning of the cephalic and basilic veins of the superficial system demonstrate normal compressibility, without thrombus. A PICC line can be seen entering the mid basilic vein. Trace soft tissue edema can be seen at the level of the anterior elbow. IMPRESSION: Negative for deep venous thrombosis. Dictated by: Yves John M.D. on 04/07/2021 at 15:33 Approved by: Yves John M.D. on 04/07/2021 at 15:34
== END ==
PROVIDERS: PCP Internal Medicine; Referring Provider Internal Medicine Infectious Disease; Visit Provider Internal Medicine Infectious Disease
DX: M79.89 Other specified soft tissue disorders (principal); Z95.828 Presence of other vascular implants and grafts
CPT/HCPCS: 93971

== ENCOUNTER → 2021-04-08 09:35 | Outpatient (CLI) | payer MEDICARE, OTHER, SELFPAY ==
[2021-03-07 13:01] VITALS: BMI 27.1
== END ==
PROVIDERS: PCP Internal Medicine; Referring Provider Internal Medicine Infectious Disease; Visit Provider Internal Medicine Infectious Disease
DX: R78.81 Bacteremia (principal); B95.4 Other streptococcus as the cause of diseases classified elsewhere

== ENCOUNTER 2021-04-18 08:40 | Emergency (ER) | payer MEDICARE, OTHER, SELFPAY ==
[2021-03-07 13:01] VITALS: BMI 27.1
[2021-04-18] VITALS (7 sets, daily range): BP systolic 129–159; BP diastolic 61–71; PULSE 58–73; RESP 14; TEMP 36.6; O2SAT 97–98; BMI 27.3
--- NOTE | 2021-04-18 | DI.RAD.S_ITS ---
PROCEDURE: XR CHEST FOR PICC 1V INDICATIONS: PICC PLACEMENT COMPARISON: [facility], , XR CHEST 2V, 03/03/2021, 10:38. FINDINGS: PICC was placed by the intravenous therapy team from the right side. Fluoroscopic spot film demonstrates the tip of PICC projecting to the area of SVC. IMPRESSION: Tip of PICC projects to the area of SVC. Dictated by: Eduardo Haywood M.D. on 04/18/2021 at 14:31 Approved by: Eduardo Haywood M.D. on 04/18/2021 at 14:31
--- NOTE | 2021-04-18 10:32 | ED.SKABFB ---
HPI - Skin/Abscess/Foreign Bdy General Chief complaint: Skin/Abscess/Foreign Body Stated complaint: discoloration on left arm Time Seen by Provider: 04/18/21 10:31 Source: patient and family () Mode of arrival: Ambulatory Limitations: no limitations History of Present Illness HPI narrative: This is a 76-year-old male with known bacteremia who has been following with Infectious Disease. Patient has had a ISIDORO and told he has vegetations on his valve. He had contact with Dr. Moctezuma with CVT plan to continue to watch while he is on a IV antibiotics before they have any intervention. Patient is currently receiving 2 g IV Rocephin daily. He saw his infectious disease physician yesterday. Afterwards they noted that his right upper extremity seemed more swollen. He had a midline in the right upper extremity his basilic vein. This was removed was noted that he has area of swelling and slight erythema in the right forearm just adjacent to the elbow. Patient has been afebrile. He has not had any other symptoms. He states he has been feeling very well. He denies any numbness, weakness in his extremity. He had some mild tingling. He is on medication for atrial fibrillation, cad, hypertension and dyslipidemia. Patient has had a TAVR and has cardiac stents. Related Data Home Medications Medication Instructions Recorded Confirmed multivitamin 1 cap PO DAILY #0 07/30/11 03/07/21 rosuvastatin [Crestor] 20 mg PO DAILY #0 03/16/12 03/07/21 apixaban 5 mg tablet 5 mg PO BID 08/21/19 03/07/21 lisinopril 10 mg tablet 10 mg PO BID 08/21/19 03/07/21 NITROGLYCERIN (#NITROSTAT) 0.4 mg SUBLINGUAL PRN 08/22/19 03/07/21 chlorthalidone 12.5 mg PO Q OTHER DAY 08/22/19 03/07/21 magnesium 1 tab PO DAILY 08/22/19 03/07/21 furosemide [Lasix] 20 mg PO DAILY 06/18/20 03/07/21 metoprolol succinate 50 mg PO DAILY 03/07/21 03/07/21 Allergies Allergy/AdvReac Type Severity Reaction Status Date / Time clopidogrel [From PLAVIX] Allergy Severe hosipitaliz Verified 04/18/21 10:06 ation procaine [PROCAINE] Allergy Mild NUMBNESS Verified 04/18/21 10:06 WILL NOT WEAR OFF PER PATIENT Review of Systems Review of Systems ROS Unobtainable: All systems reviewed & are unremarkable except as noted in HPI and below Patient History Medical History Atrial fibrillation CAD (coronary atherosclerotic disease) (07/30/11) Melanoma Other and unspecified hyperlipidemia (07/30/11) Unspecified essential hypertension (07/30/11) Weight loss Surgical History S/P TAVR (transcatheter aortic valve replacement) Stented coronary artery Social History household members: spouse Smoking Status: Former smoker alcohol intake: current Smoking Status: Former smoker alcohol intake frequency: a few times a week Substance Use Type: does not use Exam Narrative Exam Narrative: GENERAL: Alert and oriented x three, well-nourished male in mild distress. HEENT: Head normocephalic, atraumatic, EOMI, pupils reactive, face symmetric, moist mucous membranes NECK: Supple, full range of motion CARDIOVASCULAR: Regular rate and rhythm without murmurs, rubs or gallops. RESPIRATORY: Breath sounds equal bilaterally, no wheezes rales or rhonchi. ABDOMEN: Soft, nontender. Normoactive bowel sounds all 4 quadrants. No guarding or rebound, rigidity, no mass : No CVA tenderness EXTREMITIES: Normal range of motion, no clubbing. Neurovascularly intact. Patient has an area that is encircled on his left or with approximately 6 cm in width. It is slightly swollen. Very faint erythema which does appear to be extending beyond but is difficult to see even with full light. Patient does not have any tenderness. No warmth. He has full range of motion. There is no fluctuance or induration appreciated. Patient does not have any other skin changes noted. NEUROLOGICAL: Cranial nerves II through XII grossly intact. Moving all extremities SKIN: Warm, dry, no petechiae, no rashes or lesions other than noted above. Initial Vital Signs Initial Vital Signs: Vital Signs Temperature 97.9 F 04/18/21 10:00 Pulse Rate 73 04/18/21 10:00 Respiratory Rate 14 04/18/21 10:00 Blood Pressure 159/71 H 04/18/21 10:00 Pulse Oximetry 98 04/18/21 10:00 Scores GCS [place] coma scale eye opening: Spontaneous [place] coma scale verbal response: Orientated [place] coma scale motor response: Obey commands [place] coma scale total score: 15 Course Orders Ordered: ED Orders 04/18/21 10:41 US periph venous up extrem rt Stat 04/18/21 11:31 Blood Culture Stat Complete Blood Count AUTO DIFF Stat Comprehensive Metabolic Panel Stat Lactate (Lactic Acid) Stat Procalcitonin Stat Troponin & CK Cardiac Panel Stat Discontinued Medications Ceftriaxone Sodium 2,000 mg/ (Sodium Chloride) 100 mls @ 200 mls/hr IV NOW ONE Stop: 04/18/21 10:42 Last Infusion: 04/18/21 13:28 Dose: 0 mls/hr Documented by: Admin: 04/18/21 11:49 Dose: 200 mls/hr Documented by: JACKIE Consultations Consultation #1: Spoke with infectious disease at [facility] Dr. Melchor Continue Rocephin IV. No change to antibiotics at this time. Will need to remove new line if worsening. Will follow with patient. Vital Signs Vital signs: Vital Signs - 8 hr 04/18/21 13:39 04/18/21 14:14 04/18/21 14:15 Pulse Rate 60 58 L Blood Pressure 158/71 H Pulse Oximetry 98 97 MDM - Skin/Abscess/Foreign Bdy Lab Data Attestation: I reviewed the patient's lab results. Result diagrams: 04/18/21 11:31 04/18/21 11:31 Labs: Lab Results 04/18/21 04/18/21 04/18/21 Range/Units 11:31 11:31 11:31 WBC 4.9 (4.5-11.0) X10^3/uL RBC 3.97 L (4.5-5.9) X10^6/uL Hgb 10.9 L (13.5-17.5) g/dL Hct 33.6 L (41-53) % MCV 84.5 (80-100) fL MCH 27.4 (26-34) PG MCHC 32.4 (30-36) % RDW 16.3 H (11.6-14.8) % Plt Count 262 (150-400) X10^3/uL Neut % (Auto) 49.7 L (50-75) % Lymph % (Auto) 24.9 L (25-40) % [place] % (Auto) 24.8 H (3-14) % Eos % (Auto) 0.0 L (2-4) % Baso % (Auto) 0.6 (0-2) % Neut # (Auto) 2400 (3697-1532) /uL Lymph # (Auto) 1200 (6124-0653) /uL [place] # (Auto) 1200 H (0-900) /uL Eos # (Auto) 0 (0-450) /uL Baso # (Auto) 0 (0-100) /uL Sodium 139 (137-145) mmol/L Potassium 4.2 (3.4-5.1) mmol/L Chloride 105 (98-107) mmol/L Carbon Dioxide 28 (22-32) mmol/L BUN 16 (9-20) mg/dL Creatinine 0.78 (0.66-1.25) mg/dL Estimated GFR > 60.0 (>60) mL/min BUN/Creatinine Ratio 20.5 (6-22) Glucose 80 (80-110) mg/dL Lactate 1.8 (0.7-2.1) mmol/L Calcium 9.4 (8.4-10.2) mg/dL Total Bilirubin 0.4 (0.2-1.3) mg/dL AST 42 (17-59) IU/L ALT 62 H (<50) IU/L Alkaline Phosphatase 82 (38-126) U/L Total Creatine Kinase 37 L (55-170) U/L CK-MB (CK-2) TNP CK-MB (CK-2) Rel Index TNP Troponin I 0.020 (0.01-0.034) ng/mL Total Protein 6.9 (6.3-8.2) g/dL Albumin 4.0 (3.5-5.0) g/dL Globulin 2.9 (1.7-4.1) g/dL Albumin/Globulin Ratio 1.4 (1.0-2.8) Procalcitonin 0.06 (<0.5) ng/mL Imaging Data US - DVT: Radiologist's Impression: [address] [id number] ReportSigned Patient: Jesse Dietz RMR#: [id number]: 3Acct:[id number]/Sex: 76 / MDate of Service: 04/18/21Loc: EDAccession Number: [id number] Procedure: US periph venous up extrem rt Ordering Provider: Amarsi Fishman D.O. PROCEDURE: US PERIPH VENOUS UP EXTREM RT INDICATIONS: SWELLING RT ARM/FOREARM RECENT MIDLINE ON SAME ARM AND ENDOC TECHNIQUE: Real-time imaging, as well as color and pulse Doppler interrogation, was performed of the right upper extremity deep veins from the inferior neck to the antecubital fossa. COMPARISON: [facility], , [facility] VENOUS UP EXTREM RT, 04/07/2021, 15:47. FINDINGS: The internal jugular vein, visualized portions of the subclavian vein, axillary, and brachial veins are free of intraluminal thrombus. Where physically possible, the veins are normally compressible. Color and pulse Doppler demonstrate normal intraluminal flow, with expected phasicity and pulsatility. Additional scanning of the cephalic and basilic veins of the superficial system demonstrate normal compressibility, without thrombus. Edema in the forearm at the site of skin erythema. IMPRESSION: No right upper extremity DVT. Dictated by: Jakob Chow M.D. on 04/18/2021 at 11:32 Approved by: Jakob Chow M.D. 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 He is receiving IV antibiotics daily under infectious disease. It was noted he had some redness at his arm which is not where his prior midline was but is more distal. Patient states he never had any IVs or intervention at that location. He has not had any other rashes or skin changes and has no other symptoms at this time. Patient's midline had been removed 2 days ago. He has had slight increase or redness at the site. His labs are reassuring and he was given his dose of IV antibiotics here in the department. I discussed with his infectious disease specialist who recommends having him follow-up continuing his IV Rocephin and if patient continues to have redness or any increasing to remove his new PICC line and it just use a peripheral IV for the next 3-7 days. This was relayed to the patient is comfortable with this plan. All questions were answered. Discharge Plan Departure Patient Disposition: Home Clinical Impression: Cellulitis of forearm, right Activity Restrictions/Additional Instructions: I spoke with your infectious disease physician. Thy ask that if you continued to have symptoms she will need to have your line removed and have a peripheral IV for several days or week before it can be replaced again. Your physician recommends continuing your IV antibiotics as prescribed. You may continue home medications as prescribed. Please return for fevers greater 100.4 F, rapidly worsening swelling, pain or redness of your upper extremity, new chest pain, shortness of breath, passing out or other new or concerning symptoms. Prescriptions: No Action multivitamin Capsule 1 cap PO DAILY Qty: 0 RF: 0 rosuvastatin [Crestor] 20 MG tablet 20 mg PO DAILY Qty: 0 RF: 0 Eliquis 5 mg tablet 5 mg PO BID RF: 0 lisinopril 10 mg tablet 10 mg PO BID RF: 0 furosemide [Lasix] 20 mg Tablet 20 mg PO DAILY RF: 0 magnesium 1 tab PO DAILY RF: 0 chlorthalidone 25 mg Tablet 12.5 mg PO Q OTHER DAY RF: 0 NITROGLYCERIN (#NITROSTAT) 0.4 mg Sublingual PRN RF: 0 metoprolol succinate 50 mg Tablet Extended Release 24 Hr 50 mg PO DAILY RF: 0 Referrals: Sherri Waggoner MD [Primary Care Provider] -
--- NOTE | 2021-04-18 10:41 | DI.US.S_ITS ---
PROCEDURE: US [facility] VENOUS UP EXTREM RT INDICATIONS: SWELLING RT ARM/FOREARM RECENT MIDLINE ON SAME ARM AND ENDOC TECHNIQUE: Real-time imaging, as well as color and pulse Doppler interrogation, was performed of the right upper extremity deep veins from the inferior neck to the antecubital fossa. COMPARISON: [facility], , [facility] VENOUS UP EXTREM RT, 04/07/2021, 15:47. FINDINGS: The internal jugular vein, visualized portions of the subclavian vein, axillary, and brachial veins are free of intraluminal thrombus. Where physically possible, the veins are normally compressible. Color and pulse Doppler demonstrate normal intraluminal flow, with expected phasicity and pulsatility. Additional scanning of the cephalic and basilic veins of the superficial system demonstrate normal compressibility, without thrombus. Edema in the forearm at the site of skin erythema. IMPRESSION: No right upper extremity DVT. Dictated by: Jakob Chow M.D. on 04/18/2021 at 11:32 Approved by: Jakob Chow M.D. on 04/18/2021 at 11:36
[2021-04-18 11:38] LABS: Add Manual Diff / Slide Review NO; Basophils Absolute Auto 0 /uL (0-100); Basophils Percent Auto 0.6 % (0-2); Eosinophils Absolute Auto 0 /uL (0-450); Hematocrit 33.6 % (41-53); Hemoglobin 10.9 g/dL (13.5-17.5); Lymphocytes Absolute Auto 1200 /uL (1100-4500); Lymphocytes Percent Auto 24.9 % (25-40); Mean Corpuscular HGB Conc 32.4 % (30-36); Mean Corpuscular Hemoglobin 27.4 PG (26-34); Mean Corpuscular Volume 84.5 fL (80-100); Monocytes Absolute Auto 1200 /uL (0-900); Monocytes Percent Auto 24.8 % (3-14); Neutrophils Absolute Auto 2400 /uL (1500-7000); Neutrophils Percent Auto 49.7 % (50-75); Platelet Count 262 X10^3/uL (150-400); Red Blood Cell Count 3.97 X10^6/uL (4.5-5.9); Red Cell Distribution Width 16.3 % (11.6-14.8); White Blood Cell Count 4.9 X10^3/uL (4.5-11.0)
[2021-04-18] MEDS: cefTRIAXone 2,000 MG in SODIUM CHLORIDE 0.9% 100 ML 200 ML IV (11:49)
[2021-04-18 11:54] LABS: Alanine Aminotransferase 62 IU/L (<50); Albumin Globulin Ratio 1.4 (1.0-2.8); Alkaline Phosphatase 82 U/L (38-126); Aspartate Aminotransferase 42 IU/L (17-59); BUN Creatinine Ratio 20.5 (6-22); Bilirubin Total 0.4 mg/dL (0.2-1.3); Blood Urea Nitrogen 16 mg/dL (9-20); Calcium 9.4 mg/dL (8.4-10.2); Carbon Dioxide 28 mmol/L (22-32); Chloride 105 mmol/L (98-107); Creatine Kinase 37 U/L (55-170); Estimated Glomerular Filt Rate > 60.0 mL/min (>60); Globulin 2.9 g/dL (1.7-4.1); Glucose 80 mg/dL (80-110); HEMOLYSIS < 15 (0-50); Lactate (Lactic Acid) 1.8 mmol/L (0.7-2.1); Potassium 4.2 mmol/L (3.4-5.1); Sodium 139 mmol/L (137-145); Total Protein 6.9 g/dL (6.3-8.2)
--- NOTE | 2021-04-18 12:04 | PC.NURSE ---
Swelling, redness on right arm. Outlined yesterday, appears to have spread outside of marked line. Denies SOB. Recently had picc line removed.
[2021-04-18 12:10] LABS: Procalcitonin 0.06 ng/mL (<0.5)
--- NOTE | 2021-04-18 14:19 | PC.NURSE ---
PICC line placed by jason camara RN. repeat XR confirmed placement. consent was signed and in chart. pt understands DC teaching. NAD.
== END 2021-04-18 14:21 | disposition home or self-care (01) ==
PROVIDERS: Emergency Provider Emergency Medicine; PCP Internal Medicine
DX: L03.113 Cellulitis of right upper limb (principal); R78.81 Bacteremia
CPT/HCPCS: 36415; 36569; 80053; 82550; 83605; 84145; 84484; 85025; 87040; 93971; 96360; 96361; 99284; J0696

== ENCOUNTER → 2021-04-18 09:29 | Outpatient (CLI) | payer MEDICARE, OTHER, SELFPAY ==
[2021-03-07 13:01] VITALS: BMI 27.1
== END ==
PROVIDERS: PCP Internal Medicine; Referring Provider Internal Medicine Infectious Disease; Visit Provider Internal Medicine Infectious Disease
DX: R78.81 Bacteremia (principal)
CPT/HCPCS: 36569

== ENCOUNTER → 2021-04-26 09:14 | Outpatient (CLI) | payer MEDICARE, OTHER, SELFPAY ==
[2021-03-07 13:01] VITALS: BMI 27.1
[2021-04-26 11:42] LABS: COVID19 -Nasal RAPID Negative (Negative)
== END ==
PROVIDERS: PCP Internal Medicine; Visit Provider Physician Assistant
DX: Z20.822 Contact with and (suspected) exposure to COVID-19 (principal)
CPT/HCPCS: 87635; C9803

== ENCOUNTER 2021-06-01 11:12 | Emergency (ER) | payer MEDICARE, OTHER, SELFPAY ==
[2021-03-07 13:01] VITALS: BMI 27.1
[2021-06-01 11:24] VITALS: BP 162/77; PULSE 71; TEMP 36.1; O2SAT 99
[2021-06-01 11:45] VITALS: BMI 27.6
[2021-06-01 12:28] LABS: HEMOLYSIS < 15 (0-50)
== END 2021-06-01 13:10 | disposition left against medical advice (07) ==
PROVIDERS: Emergency Provider Emergency Medicine; PCP Internal Medicine
DX: E87.5 Hyperkalemia (principal)
CPT/HCPCS: 36415; 84132; 99281

== ENCOUNTER 2021-06-11 10:35 | Emergency (ER) | payer MEDICARE, OTHER, SELFPAY ==
[2021-03-07 13:01] VITALS: BMI 27.1
[2021-06-11] VITALS (22 sets, daily range): BP systolic 143–183; BP diastolic 69–88; PULSE 59–78; RESP 16–32; TEMP 36.8; O2SAT 96–99; BMI 27.3
--- NOTE | 2021-06-11 10:37 | DI.ECHO.S_ITS ---
[facility] +---------+ : : [address] : : : : [id number] : : : : Phone: [phone]+ Echocardiogram Report + + :Name: MARI MATHEW Study Date: 06/11/2021 Height: 75 in : :[facility] ReadingLocation: Weight: 218 lb : : Gender: Male BSA: 2.3 m2 : :: 1945 Age: 76 yrs BP: 179/79 mmHg: :Reason For Study: TAVR, ENDOCARDITIS : :Ordering Physician: TASHA, : :URBANO Performed By: Antonieta Robison : :Referring: URBANO CORDOVA : + + Interpretation Summary The left ventricle is mildly dilated. Left ventricular function has slightly worsened compared to the previous exam. The ejection fraction is estimated to be 40-45%. Possible hypokinesis along the basal inferior, apical anterior, apical inferior, and apical septum. Apical wall motion abnormalities could be due to RV pacing. The right ventricle is mildly dilated. The right ventricular systolic function is normal. The right ventricular systolic pressure is estimated to be at least 46 mmHg based on an estimated right atrial pressure of 8 mm Hg. The left atrium is severely dilated. The right atrium is borderline dilated. There is severe mitral regurgitation. Compared to the prior echo study, there has been an increase in the severity of mitral regurgitation. There is a prosthetic aortic valve. There is mild to moderate perivalvular regurgitation around the prosthetic aortic valve. This is unchanged compared to the previous study. Cannot exclude aortic valvular vegetation. The aortic root is not well visualized. Pulmonary valve not well visualized. Tricuspid valve grossly did not have any evidence of endocarditis. Mitral valve has no gross evidence of endocarditis. Procedure: A two-dimensional transthoracic echocardiogram with color flow and Doppler was performed. The study quality was technically adequate. Comparison is made with the echocardiogram of 03/08/2021. The heart rate ranged between 60-63 bpm during the study. Left Ventricle: The left ventricle is mildly dilated. The estimated left ventricular end diastolic volume is 146 ml. There is mild concentric left ventricular hypertrophy. Left ventricular function has slightly worsened compared to the previous exam. The ejection fraction is estimated to be 40- 45%. Possible hypokinesis along the basal inferior, apical anterior, apical inferior, and apical septum. Apical wall motion abnormalities could be due to RV pacing. Right Ventricle: The right ventricle is mildly dilated. The right ventricular systolic function is normal. Atria: The left atrium is severely dilated. The right atrium is borderline dilated. There is no Doppler evidence for an interatrial shunt. Mitral Valve: There is mild mitral annular calcification. The mitral valve leaflets appear mildly thickened, but open well. There is severe mitral regurgitation. Compared to the prior echo study, there has been an increase in the severity of mitral regurgitation. Aortic Valve: There is a prosthetic aortic valve. There is mild to moderate perivalvular regurgitation around the prosthetic aortic valve. Cannot exclude aortic valvular vegetation. There is mild aortic stenosis. The peak aortic velocity is 2.9 m/sec. The aortic valve mean gradient is 21 mmHg. This is unchanged compared to the previous study. Tricuspid Valve: The tricuspid valve is not well visualized, but is grossly normal. The right ventricular systolic pressure is estimated to be at least 46 mmHg based on an estimated right atrial pressure of 8 mm Hg. There is mild to moderate tricuspid regurgitation. Pulmonic Valve: The pulmonic valve is not well visualized. There is trace pulmonic regurgitation. Great Vessels: The aortic root is not well visualized. The ascending aorta could not be visualized. The IVC is dilated (diameter is greater than 2.1 cm) yet it collapses greater than 50% with a sniff. This suggests a right atrial pressure of 8 mm Hg. Pericardium/ Pleura There is no pericardial effusion. There is no pleural effusion. MMode/2D Measurements & Calculations LVIDd: 6.6 cm LVOT diam: 2.0 cm LVIDs: 5.1 cm Ao Arch Diam (Prox Trans): 3.3 cm FS: 22.4 % IVSd: 1.1 cm LVPWd: 1.3 cm LV shannon. diameter/BSA (cm/m^2): 2.9 LV sys. diameter/BSA (cm/m^2): 2.2 LA A2 area: 34.2 cm2 RA long axis: 6.3 cm LA A4 area: 33.1 cm2 RA area: 23.6 cm2 LA length (vol): 7.3 cm RA vol: 75.7 ml LA vol: 131.9 ml RA : 33.2 ml/m2 LA vol index: 58.0 ml/m2 IVC diam: 2.1 cm RVD1 (basal): 4.3 cm TAPSE: 1.9 cm Doppler Measurements & Calculations Ao V2 max: 290.6 cm/sec LVOT Max Mo: 77.5 cm/sec Ao V2 mean: 214.8 cm/sec LV V1 max P.4 mmHg Ao max P.5 mmHg LV V1 VTI: 17.3 cm Ao mean P.1 mmHg ECTOR(I,D): 0.86 cm2 Ao V2 VTI: 63.6 cm ECTOR(V,D): 0.84 cm2 sev ratio: 0.27 ECTOR indexed to BSA (cm^2/m^2): 0.38 AI P1/2t: 497.3 msec AI dec slope: 273.8 cm/sec2 MV E max mo: 103.0 cm/sec TR max mo: 307.5 cm/sec MV A max mo: 1.6 cm/sec TR max P.9 mmHg MV E/A: 63.2 PA pr(Accel): 32.8 mmHg Med Peak E' Mo: 5.8 cm/sec E/E' med: 17.9 Lat Peak E' Mo: 9.4 cm/sec E/E' lat: 10.9 E/e' average: 14.4 MV dec time: 0.23 sec MR ERO: 0.37 cm2 MR PISA: 6.0 cm2 SV(LVOT): 54.5 ml MR flow rate: 219.9 cm3/sec MR PISA radius: 0.98 cm Reading Physician:04:38 PM
--- NOTE | 2021-06-11 10:37 | DI.CT.S_ITS ---
PROCEDURE: CT ANGIO HEAD AND NECK INDICATIONS: Vision changes, requested by Cardiology TECHNIQUE: Noncontrast images were performed earlier in the day and not repeated. After the administration of intravenous contrast, 1 mm thick sections acquired from the aortic arch through the [place] of [place]. Post-contrast 4.5 mm thick sections then re-acquired from the foramen magnum to the vertex. 3-dimensional ltefrwn-jfijfglbn-uyvbbyhqaa (MIP) and/or volume rendering reformats were acquired of the central intracranial vasculature and neck separately. COMPARISON: [facility], CT, CT HEAD/BRAIN WO CON, 06/11/2021, 11:36. FINDINGS: Image quality: Excellent. BRAIN: CSF spaces: Ventricles are normal in size and shape. Basal cisterns are patent. No extra-axial fluid collections. Brain: No midline shift. There is again seen a hyperdense lesion within the left occipital lobe, that measures 2.1 x 2 cm in greatest axial dimension, with a craniocaudal extent of 2.1 cm. There is surrounding brain edema. The internal density of this focus is 66 Hounsfield units, which is not significantly changed compared to the density on the accompanying noncontrast head CT. Gamino-white matter interface appears intact. Skull and face: Calvarium and facial bones appear intact, without suspicious lesions. Orbits appear normal. Sinuses: Sinuses and mastoids are clear. HEAD CT ANGIOGRAPHY: Anterior circulation: Intracranial internal carotid arteries demonstrate atherosclerotic irregularity and calcification, with approximately 50% narrowing seen on each side. The flow within the paired anterior cerebral arteries is normal and symmetric. The flow within the middle cerebral arteries is normal and symmetric. The anterior communicating artery is seen. No aneurysms are seen. Posterior circulation: Areas of focal calcification can be seen involving the V4 segments, with approximately 50% narrowing on the right and approximately 30% narrowing on the left. There is a normal appearing basilar artery. Flow within the posterior cerebral arteries is normal and symmetric. No aneurysms are seen. NECK CT ANGIOGRAPHY: Carotid system: The great vessels demonstrate a conventional anatomy as they arise from the aortic arch. The origins of the common carotid arteries appear patent. There is approximately 40% narrowing seen involving the origin of the left subclavian artery. The common carotid arteries demonstrate normal caliber and courses. The bifurcation regions demonstrate dense atherosclerotic calcification and irregularity. There is 70-80% narrowing seen involving the right proximal internal carotid artery and approximately 70% narrowing seen involving the left proximal internal carotid artery. The more distal internal carotid arteries demonstrate normal course and caliber. Posterior circulation: The origins of the vertebral arteries both appear widely patent. The more superior extracranial portions of both vertebral arteries also demonstrate normal courses and calibers. They join to form a normal appearing basilar artery. Soft tissues: Visualized neck soft tissues demonstrate no suspicious abnormalities. Small bilateral pleural effusions with atelectasis can be seen at the lung apices. 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 Bones: No suspicious bony lesions. Visualized cervical spine appears normally aligned. IMPRESSION: There is again seen a hyperdense focus involving the left occipital lobe, which is attributed to acute to subacute hemorrhage. Differential diagnosis includes a hyperdense/hemorrhagic mass, yet this is considered to be unlikely, given the lack of enhancement between this study and the previously performed noncontrast head CT. There is focal narrowing seen involving both proximal internal carotid arteries, 70-80% narrowing on the right and approximately 70% narrowing on the left. Areas of focal V4 narrowing can be seen, proximally 50% narrowing on the right and approximately 30% narrowing on the left. There is approximately 40% narrowing seen involving the origin of the left subclavian artery. Small bilateral pleural effusions are seen, with mild atelectasis. Incidental note is made of: CABG changes Any quantitative measurements of stenosis were performed using NASCET criteria. Dictated by: Yves John M.D. on 06/11/2021 at 11:30 Approved by: Yves John M.D. on 06/11/2021 at 11:39
--- NOTE | 2021-06-11 10:38 | DI.CT.S_ITS ---
PROCEDURE: CT HEAD/BRAIN WO CON INDICATIONS: Vision changes TECHNIQUE: Noncontrast 4.5 mm thick angled axial sections acquired from the foramen magnum to the vertex, with coronal and sagittal reformats. For radiation dose reduction, the following was used: automated exposure control, adjustment of mA and/or kV according to patient size. COMPARISON: None. FINDINGS: Image quality: Excellent. CSF spaces: Basal cisterns are patent. No extra-axial fluid collections. The ventricles are symmetric in size and shape. Brain: There is acute hemorrhage involving the left parietal occipital lobe measuring 2.1 x 2.1 cm. Surrounding vasogenic edema is noted. If there is clinical suspicion for underlying hemorrhagic mass, than short interval follow-up with contrast enhanced brain MRI could be performed after the patient's acute episode has resolved. There is cerebral volume loss for age, with resultant ventricular and sulcal prominence. There are periventricular and deep white matter chronic small vessel ischemic changes. There is intracranial internal carotid artery atherosclerosis. Skull and face: Calvarium and visualized facial bones appear intact, without suspicious lesions. Sinuses: Visualized sinuses and mastoids are clear. IMPRESSION: Acute parenchymal hemorrhage within the left parietal occipital lobe. Findings (including all critical results, if any) and recommendations were personally telephoned and discussed with Dr. Mosqueda on 06-11-21 12:16 Dictated by: Sina Sharp M.D. on 06/11/2021 at 12:13 Approved by: Sina Sharp M.D. on 06/11/2021 at 12:17
[2021-06-11 11:03] LABS: Add Manual Diff / Slide Review NO; Basophils Absolute Auto 100 /uL (0-100); Basophils Percent Auto 0.7 % (0-2); Eosinophils Absolute Auto 0 /uL (0-450); Eosinophils Percent Auto 0.4 % (2-4); Hematocrit 37.6 % (41-53); Hemoglobin 11.9 g/dL (13.5-17.5); Lymphocytes Absolute Auto 1700 /uL (1100-4500); Lymphocytes Percent Auto 14.6 % (25-40); Mean Corpuscular HGB Conc 31.6 % (30-36); Mean Corpuscular Hemoglobin 24.8 PG (26-34); Mean Corpuscular Volume 78.4 fL (80-100); Monocytes Absolute Auto 1400 /uL (0-900); Monocytes Percent Auto 11.5 % (3-14); Neutrophils Absolute Auto 8700 /uL (1500-7000); Neutrophils Percent Auto 72.8 % (50-75); Platelet Count 177 X10^3/uL (150-400); Red Cell Distribution Width 17.2 % (11.6-14.8); White Blood Cell Count 11.9 X10^3/uL (4.5-11.0)
[2021-06-11 11:10] LABS: INR 1.4 (0.9-1.3); Prothrombin Time 16.3 SECONDS (10.1-12.7)
[2021-06-11 11:13] LABS: PTT Partial Thromboplastin Tim 36 SECONDS (26.4-36.2)
[2021-06-11 11:16] LABS: Alanine Aminotransferase 31 IU/L (<50); Albumin 4.5 g/dL (3.5-5.0); Albumin Globulin Ratio 1.6 (1.0-2.8); Alkaline Phosphatase 96 U/L (38-126); Aspartate Aminotransferase 45 IU/L (17-59); BUN Creatinine Ratio 21.4 (6-22); Bilirubin Total 0.6 mg/dL (0.2-1.3); Blood Urea Nitrogen 18 mg/dL (9-20); Calcium 9.7 mg/dL (8.4-10.2); Carbon Dioxide 28 mmol/L (22-32); Chloride 103 mmol/L (98-107); Creatine Kinase 54 U/L (55-170); Estimated Glomerular Filt Rate > 60.0 mL/min (>60); Globulin 2.9 g/dL (1.7-4.1); Glucose 94 mg/dL (80-110); HEMOLYSIS 16 (0-50); Lipase 110 U/L (23-300); Potassium 4.5 mmol/L (3.4-5.1); Sodium 139 mmol/L (137-145); Total Protein 7.4 g/dL (6.3-8.2)
[2021-06-11 11:27] LABS: Troponin I 0.039 ng/mL (0.01-0.034)
--- NOTE | 2021-06-11 12:08 | ED_ITS ---
HPI - Neuro Symptoms/Deficit General Chief Complaint: Neuro Symptoms/Deficit Stated Complaint: visual change x1day Time Seen by Provider: 06/11/21 10:37 Source: patient Mode of arrival: Ambulatory Limitations: no limitations History of Present Illness HPI Narrative: Patient is a 76-year-old male who had a follow-up visit with his radio news anchor today that was previously scheduled. During that visit he mentioned to his radio news anchor that he was having problems with visions specifically on his right side. He stated that he thought that the symptoms started yesterday afternoon. Unsure the exact timing has he states that he only occasionally notices that he can see on that side. He had no other associated symptoms. No trauma. He was sent to the emergency department for further evaluation. He is on anticoagulation. Does have a significant cardiac history. Has had a TAVR, pacemaker, and is currently being treated for endocarditis. On Anticoagulants: Yes Related Data Home Medications Medication Instructions Recorded Confirmed multivitamin 1 cap PO DAILY #0 07/30/11 06/11/21 rosuvastatin 20 mg tablet (Crestor) 20 mg PO DAILY #0 03/16/12 06/11/21 apixaban 5 mg tablet (Eliquis) 5 mg PO BID 08/21/19 06/11/21 lisinopril 10 mg tablet 10 mg PO BID 08/21/19 06/11/21 NITROGLYCERIN (#NITROSTAT) 0.4 mg SUBLINGUAL PRN 08/22/19 06/11/21 magnesium 1 tab PO DAILY 08/22/19 06/11/21 furosemide 20 mg tablet (Lasix) 20 mg PO DAILY 06/18/20 06/11/21 metoprolol succinate 50 mg 50 mg PO DAILY 03/07/21 06/11/21 tablet,extended release 24 hr amoxicillin 500 mg capsule 500 mg PO TID 06/11/21 06/11/21 aspirin 81 mg tablet 81 mg PO DAILY 06/11/21 06/11/21 Allergies Allergy/AdvReac Type Severity Reaction Status Date / Time clopidogrel [From PLAVIX] Allergy Severe hosipitaliz Verified 04/18/21 10:06 ation procaine [PROCAINE] Allergy Mild NUMBNESS Verified 04/18/21 10:06 WILL NOT WEAR OFF PER PATIENT Review of Systems Constitutional Constitutional: Denies fever(s), Denies headache(s) and Denies weakness Eyes Eyes: Reports as per HPI and Reports loss of vision ENT Ears, Nose, Mouth, and Throat: Denies vertigo, Denies dizziness, Denies headache(s) and Denies neck pain Cardiovascular Cardiovascular: Denies chest pain and Denies dyspnea Respiratory Respiratory: Denies dyspnea Gastrointestinal Gastrointestinal: Denies abdominal pain, Denies nausea and Denies vomiting Genitourinary Genitourinary: Reports system reviewed and no additional complaints, except as documented Musculoskeletal Musculoskeletal: Denies back pain, Denies neck pain, Denies numbness and Denies tingling Integumentary/Breasts Skin/Breast: Reports system reviewed and no additional complaints, except as documented Neurologic Neurologic: Denies abnormal movements, Denies abnormal speech, Denies confusion, Denies vertigo, Denies dizziness, Denies headache(s), Denies localized weakness, Reports loss of vision, Denies memory loss, Denies numbness, Denies tingling and Denies weakness Psychiatric Psychiatric: Reports system reviewed and no additional complaints, except as documented, Denies confusion and Denies memory loss Endocrine Endocrine: Reports system reviewed and no additional complaints, except as documented Hematologic/Lymphatic On Anticoagulants: Yes Allergic/Immunologic Allergic/Immunologic: Reports system reviewed and no additional complaints, except as documented Patient History Medical History Atrial fibrillation CAD (coronary atherosclerotic disease) (07/30/11) Melanoma Other and unspecified hyperlipidemia (07/30/11) Unspecified essential hypertension (07/30/11) Weight loss Surgical History S/P TAVR (transcatheter aortic valve replacement) Stented coronary artery Social History household members: spouse Smoking Status: Former smoker alcohol intake: current Smoking Status: Former smoker alcohol intake frequency: a few times a week Substance Use Type: does not use Exam Initial Vital Signs Initial Vital Signs: Vital Signs Temperature 98.3 F 06/11/21 10:46 Pulse Rate 60 06/11/21 10:46 Respiratory Rate 18 06/11/21 10:46 Blood Pressure 179/79 H 06/11/21 10:46 Pulse Oximetry 99 06/11/21 10:46 Const General: cooperative, healthy appearing, comfortable and well developed HENNY Head: normal to inspection and normocephalic Face and sinus: normal facial exam Eyes General: appearance normal, both eyes and all related structures Alignment and Position: alignment normal Conjunctivae: conjunctivae normal Sclera: sclerae normal Pupils: PERRL EOM: EOM intact bilaterally Neck Neck: normal visual inspection Chest Chest: normal inspection of the chest Resp Effort & Inspection: normal respiratory effort Auscultation: clear to auscultation bilaterally Cardio Rate: regular rate Rhythm: regular rhythm Heart Sounds: murmur GI Inspection: normal to inspection Palpation: soft and No tender Skin General: no rashes or lesions noted Neuro General: patient alert, patient awake, patient oriented x3, gait normal, tone normal, moves all extremities and no meningeal signs Cranial Nerves: CN's II-XI intact bilaterally Cognition: normal cognition Speech: speech normal Gait: normal gait Motor: muscle tone normal throughout Sensory Exam: no sensory deficits noted Other: Does have a right visual field Homonymous Hemianopia Extrem General: normal to inspection and capillary refill normal Psych Appearance: grossly normal and well kempt Scores GCS [place] coma scale eye opening: Spontaneous [place] coma scale verbal response: Orientated [place] coma scale motor response: Obey commands [place] coma scale total score: 15 NIH Stroke Scale Level of Conciousness: Alert, keenly responsive Ask month/age: Answers both questions correctly. Open/close eyes, close hand: Performs both tasks correctly Best gaze horizontal: Normal Visual tompkins: Complete hemianopia Facial palsy: Normal symetrical movement Left arm drift: No drift for full 10 sec Right arm drift: No drift for full 10 sec Left leg drift: No drift for full 5 sec Right leg drift: No drift for full 5 sec Limb ataxia: Absent Sensory on face/arms/legs: Normal, no sensory loss Best language: No aphasia, normal Dysarthria: Normal Extinction or inattention: No abnormality Total NIH Stroke scale score: 2 Course Orders Ordered: ED Orders 06/11/21 10:37 CT angio head and neck Stat EC echo doppler complete Stat 06/11/21 10:38 CT head/brain wo con Stat EKG-12 Lead Stat 06/11/21 10:51 Complete Blood Count AUTO DIFF Stat Comprehensive Metabolic Panel Stat Lipase Stat Partial Thromboplastin Time Stat Prothrombin Time INR Stat Troponin & CK Cardiac Panel Stat 06/11/21 13:02 COVID19 - ADMIT (ADMIN ASSISTANT swab/PCR) Stat Nicardipine HCl 25 mg/ Sodium (Chloride) 250 mls @ 25 mls/hr IV TITRATE TRACY; Protocol Last Admin: 06/11/21 12:52 Dose: 2.5 mg/hr, 25 mls/hr Documented by: ZACH Discontinued Medications Amoxicillin (Amoxicillin 250 Mg Capsule) 500 mg PO NOW ONE Stop: 06/11/21 14:09 Prothrombin Complex Concent ( Human) 2,000 unit/Miscellaneous 80 mls @ 715.226 mls/hr IV NOW ONE; Protocol Stop: 06/11/21 13:15 Last Infusion: 06/11/21 14:03 Dose: Infused Documented by: Vital Signs Vital signs: Vital Signs - 8 hr 06/11/21 10:46 06/11/21 11:54 06/11/21 11:58 Temperature 98.3 F Pulse Rate 60 60 60 Respiratory Rate 18 16 Blood Pressure 179/79 H 179/70 H Pulse Oximetry 99 99 99 06/11/21 12:00 06/11/21 12:24 06/11/21 12:30 Temperature Pulse Rate 60 60 60 Respiratory Rate Blood Pressure 171/77 H 167/81 H Pulse Oximetry 98 98 98 06/11/21 12:45 06/11/21 13:00 06/11/21 13:05 Temperature Pulse Rate 60 78 60 Respiratory Rate 26 H 26 H Blood Pressure 164/88 H Pulse Oximetry 98 99 99 06/11/21 13:10 06/11/21 13:15 06/11/21 13:20 Temperature Pulse Rate 60 60 60 Respiratory Rate 22 26 H 25 H Blood Pressure 183/81 H 150/79 H Pulse Oximetry 98 98 97 06/11/21 13:25 Temperature Pulse Rate 60 Respiratory Rate 23 Blood Pressure 157/77 H Pulse Oximetry 97 MDM - Neuro Symptoms/Deficit Lab Data Attestation: I reviewed the patient's lab results. Result diagrams: 06/11/21 10:51 06/11/21 10:51 Labs: Lab Results 06/11/21 06/11/21 06/11/21 Range/Units 10:51 10:51 10:51 WBC 11.9 H (4.5-11.0) X10^3/uL RBC 4.80 (4.5-5.9) X10^6/uL Hgb 11.9 L (13.5-17.5) g/dL Hct 37.6 L (41-53) % MCV 78.4 L (80-100) fL MCH 24.8 L (26-34) PG MCHC 31.6 (30-36) % RDW 17.2 H (11.6-14.8) % Plt Count 177 (150-400) X10^3/uL Neut % (Auto) 72.8 (50-75) % Lymph % (Auto) 14.6 L (25-40) % [place] % (Auto) 11.5 (3-14) % Eos % (Auto) 0.4 L (2-4) % Baso % (Auto) 0.7 (0-2) % Neut # (Auto) 8700 H (9691-8133) /uL Lymph # (Auto) 1700 (5652-5369) /uL [place] # (Auto) 1400 H (0-900) /uL Eos # (Auto) 0 (0-450) /uL Baso # (Auto) 100 (0-100) /uL PT 16.3 H (10.1-12.7) SECONDS INR 1.4 H (0.9-1.3) APTT 36 (26.4-36.2) SECONDS Sodium 139 (137-145) mmol/L Potassium 4.5 (3.4-5.1) mmol/L Chloride 103 (98-107) mmol/L Carbon Dioxide 28 (22-32) mmol/L BUN 18 (9-20) mg/dL Creatinine 0.84 (0.66-1.25) mg/dL Estimated GFR > 60.0 (>60) mL/min BUN/Creatinine Ratio 21.4 (6-22) Glucose 94 (80-110) mg/dL Calcium 9.7 (8.4-10.2) mg/dL Total Bilirubin 0.6 (0.2-1.3) mg/dL AST 45 (17-59) IU/L ALT 31 (<50) IU/L Alkaline Phosphatase 96 (38-126) U/L Total Creatine Kinase 54 L (55-170) U/L CK-MB (CK-2) TNP CK-MB (CK-2) Rel Index TNP Troponin I 0.039 H (0.01-0.034) ng/mL Total Protein 7.4 (6.3-8.2) g/dL Albumin 4.5 (3.5-5.0) g/dL Globulin 2.9 (1.7-4.1) g/dL Albumin/Globulin Ratio 1.6 (1.0-2.8) Lipase 110 (23-300) U/L Imaging Data CT scan - head: Radiologist's Impression: [address] [id number] Scan ReportSigned Patient: Jesse Dietz RMR#: [id number]: 3Acct:[id number]/Sex: 76 / MDate of Service: 06/11/21Loc: EDAccession Number: [id number] Procedure: CT head/brain wo con Ordering Provider: Neal Mosqueda D.O. PROCEDURE: CT HEAD/BRAIN WO CON INDICATIONS: Vision changes TECHNIQUE: Noncontrast 4.5 mm thick angled axial sections acquired from the foramen magnum to the vertex, with coronal and sagittal reformats. For radiation dose reduction, the following was used: automated exposure control, adjustment of mA and/or kV according to patient size. COMPARISON: None. FINDINGS: Image quality: Excellent. CSF spaces: Basal cisterns are patent. No extra-axial fluid collections. The ventricles are symmetric in size and shape. Brain: There is acute hemorrhage involving the left parietal occipital lobe measuring 2.1 x 2.1 cm. Surrounding vasogenic edema is noted. If there is clinical suspicion for underlying hemorrhagic mass, than short interval follow-up with contrast enhanced brain MRI could be performed after the patient's acute episode has resolved. There is cerebral volume loss for age, with resultant ventricular and sulcal prominence. There are periventricular and deep white matter chronic small vessel ischemic changes. There is intracranial internal carotid artery atherosclerosis. Skull and face: Calvarium and visualized facial bones appear intact, without suspicious lesions. Sinuses: Visualized sinuses and mastoids are clear. IMPRESSION: Acute parenchymal hemorrhage within the left parietal occipital lobe. Findings (including all critical results, if any) and recommendations were personally telephoned and discussed with Dr. Mosqueda on 06-11-21 12:16 Dictated by: Sina Sharp M.D. on 06/11/2021 at 12:13 Approved by: Sina Sharp M.D. on 06/11/2021 at 12:17 CTA - brain/neck: Radiologist's Impression: [address] [id number] Scan ReportSigned Patient: Jesse Dietz RMR#: [id number]: 3Acct:[id number]/Sex: 76 / MDate of Service: 06/11/21Loc: EDAccession Number: [id number] Procedure: CT angio head and neck Ordering Provider: Neal Mosqueda D.O. PROCEDURE: CT ANGIO HEAD AND NECK INDICATIONS: Vision changes, requested by Cardiology TECHNIQUE: Noncontrast images were performed earlier in the day and not repeated. After the administration of intravenous contrast, 1 mm thick sections acquired from the aortic arch through the [place] of [place]. Post-contrast 4.5 mm thick sections then re- acquired from the foramen magnum to the vertex. 3-dimensional mrfrsgc-wfgehimwo-fqsegybkbr (MIP) and/or volume rendering reformats were acquired of the central intracranial vasculature and neck separately. COMPARISON: [facility], CT, CT HEAD/BRAIN WO CON, 06/11/2021, 11:36. FINDINGS: Image quality: Excellent. BRAIN: CSF spaces: Ventricles are normal in size and shape. Basal cisterns are patent. No extra-axial fluid collections. Brain: No midline shift. There is again seen a hyperdense lesion within the left occipital lobe, that measures 2.1 x 2 cm in greatest axial dimension, with a craniocaudal extent of 2.1 cm. There is surrounding brain edema. The internal density of this focus is 66 Hounsfield units, which is not significantly changed compared to the density on the accompanying noncontrast head CT. Gamino-white matter interface appears intact. Skull and face: Calvarium and facial bones appear intact, without suspicious lesions. Orbits appear normal. Sinuses: Sinuses and mastoids are clear. HEAD CT ANGIOGRAPHY: Anterior circulation: Intracranial internal carotid arteries demonstrate atherosclerotic irregularity and calcification, with approximately 50% narrowing seen on each side. The flow within the paired anterior cerebral arteries is normal and symmetric. The flow within the middle cerebral arteries is normal and symmetric. The anterior communicating artery is seen. No aneurysms are seen. Posterior circulation: Areas of focal calcification can be seen involving the V4 segments, with approximately 50% narrowing on the right and approximately 30% narrowing on the left. There is a normal appearing basilar artery. Flow within the posterior cerebral arteries is normal and symmetric. No aneurysms are seen. NECK CT ANGIOGRAPHY: Carotid system: The great vessels demonstrate a conventional anatomy as they arise from the aortic arch. The origins of the common carotid arteries appear patent. There is approximately 40% narrowing seen involving the origin of the left subclavian artery. The common carotid arteries demonstrate normal caliber and courses. The bifurcation regions demonstrate dense atherosclerotic calcification and irregularity. There is 70- 80% narrowing seen involving the right proximal internal carotid artery and approximately 70% narrowing seen involving the left proximal internal carotid artery. The more distal internal carotid arteries demonstrate normal course and caliber. Posterior circulation: The origins of the vertebral arteries both appear widely patent. The more superior extracranial portions of both vertebral arteries also demonstrate normal courses and calibers. They join to form a normal appearing basilar artery. Soft tissues: Visualized neck soft tissues demonstrate no suspicious abnormalities. Small bilateral pleural effusions with atelectasis can be seen at the lung apices. 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 Bones: No suspicious bony lesions. Visualized cervical spine appears normally aligned. IMPRESSION: There is again seen a hyperdense focus involving the left occipital lobe, which is attributed to acute to subacute hemorrhage. Differential diagnosis includes a hyperdense/hemorrhagic mass, yet this is considered to be unlikely, given the lack of enhancement between this study and the previously performed noncontrast head CT. There is focal narrowing seen involving both proximal internal carotid arteries, 70-80% narrowing on the right and approximately 70% narrowing on the left. Areas of focal V4 narrowing can be seen, proximally 50% narrowing on the right and approximately 30% narrowing on the left. There is approximately 40% narrowing seen involving the origin of the left subclavian artery. Small bilateral pleural effusions are seen, with mild atelectasis. Incidental note is made of: CABG changes Any quantitative measurements of stenosis were performed using NASCET criteria. Dictated by: Yves John M.D. on 06/11/2021 at 11:30 Approved by: Yves John M.D. on 06/11/2021 at 11:39 ECG Data Attestation: I personally reviewed and interpreted this ECG as follows: Interpretation: Ventricular paced Rate is 60 MDM Narrative Medical decision making narrative: Patient has a normal neurologic exam except for the complete right visual field Homonymous hemianopsia. Patient did take his apixaban this morning. He has approximately 24 hours after the onset of the symptoms. Head CT shows a inter parenchymal head bleed. Patient was started on nicardipine to keep a blood pressure less than 160/[address] [facility]. Patient was also given Kcentra per recommendation of Neurology at [facility]. Echocardiogram has been obtained however results not available at the time of patient transfer. Patient was informed of the findings of the CT scan. He was informed of the need for transfer. Patient is stable for transfer. Accepting provider . Patient will be sent to [facility] Emergency Department. Critical Care Time Critical Care Time Critical Care Time: Yes Total Critical Care Time: 40 Attestation: The high probability of a clinically significant, sudden or life threatening deterioration of the neurologic system(s) required my full and direct attention, intervention and personal management. The aggregate critical care time was [40] minutes. This time is in addition to time spent performing reported procedures but includes the following: [x] Data Review and interpretation [x] Patient assessment and monitoring of vital signs [x] Documentation [x] Medication orders and management Discharge Plan Departure Patient Disposition: [facility] Clinical Impression: Intraparenchymal hemorrhage of brain, Hypertension Prescriptions: No Action multivitamin Capsule 1 cap PO DAILY Qty: 0 RF: 0 rosuvastatin [Crestor] 20 MG tablet 20 mg PO DAILY Qty: 0 RF: 0 Eliquis 5 mg tablet 5 mg PO BID RF: 0 lisinopril 10 mg tablet 10 mg PO BID RF: 0 furosemide [Lasix] 20 mg Tablet 20 mg PO DAILY RF: 0 amoxicillin 500 mg capsule 500 mg PO TID RF: 0 aspirin 81 mg Tablet 81 mg PO DAILY RF: 0 magnesium 1 tab PO DAILY RF: 0 NITROGLYCERIN (#NITROSTAT) 0.4 mg Sublingual PRN RF: 0 metoprolol succinate 50 mg Tablet Extended Release 24 Hr 50 mg PO DAILY RF: 0 Referrals: Sherri Waggoner MD [Primary Care Provider] -
[2021-06-11] MEDS: NICARDIPINE 25 MG in SODIUM CHLORIDE 0.9% 240 ML 25 ML IV (12:52)
[2021-06-11] MEDS: PROTHROMBIN CPLX(PCC)4FACT 2,000 UNIT in ISOOSMOTIC VEHICLE 0 ML 715.226 ML IV (13:48)
[2021-06-11] MEDS: AMOXICILLIN 250 MG CAPSULE 500 MG PO (14:17)
[2021-06-11 14:21] LABS: COVID19 - ADMIT (NP swab/PCR) Negative (Negative)
== END 2021-06-11 14:23 | disposition short-term general hospital (02) ==
PROVIDERS: Emergency Provider Emergency Medicine; PCP Internal Medicine
DX: I61.9 Nontraumatic intracerebral hemorrhage, unspecified (principal); I10 Essential (primary) hypertension; Z79.01 Long term (current) use of anticoagulants; Z20.822 Contact with and (suspected) exposure to COVID-19
CPT/HCPCS: 36415; 70450; 70496; 70498; 80053; 82550; 83690; 84484; 85025; 85610; 85730; 87635; 93005; 93010; 93306; 96365; 96375; 99285; 99291; C9803; J7168

== ENCOUNTER 2021-08-01 13:02 | Emergency (ER) | payer MEDICARE, OTHER, SELFPAY ==
[2021-03-07 13:01] VITALS: BMI 27.1
[2021-08-01 13:05] VITALS: BP 180/87; PULSE 70; RESP 18; TEMP 36.2; O2SAT 100
--- NOTE | 2021-08-01 13:23 | DI.RAD.S_ITS ---
PROCEDURE: XR CHEST 1V INDICATIONS: chest pain TECHNIQUE: One view of the chest was acquired. COMPARISON: None. FINDINGS: Surgical changes and devices: Median sternotomy. Left-sided pacer. Lungs and pleura: Mild patchy bilateral perihilar and basilar airspace opacity. No pleural effusions or pneumothorax. Mediastinum: Mediastinal contours appear normal. Heart size is enlarged. Bones and chest wall: No suspicious bony lesions. Overlying soft tissues appear unremarkable. IMPRESSION: 1. Mild atypical pneumonia. 2. Cardiomegaly. Dictated by: Luana Boone M.D. on 08/01/2021 at 13:43 Approved by: Luana Boone M.D. on 08/01/2021 at 13:43
--- NOTE | 2021-08-01 13:44 | ED_ITS ---
HPI - Extremity Problem General Chief complaint: Extremity Problem,Nontraumatic Stated complaint: rt foot swollen and discolored Time Seen by Provider: 08/01/21 13:26 Source: patient and family () Mode of arrival: Ambulatory Limitations: no limitations History of Present Illness HPI Narrative: This is a 76-year-old male with known valvular infection who has completed 10 weeks of IV antibiotics and is continued on oral amoxicillin per ID and his cardiovascular team. Patient is awaiting to have his valve replaced by his Cardiology team at [facility]. Patient also had a hemorrhagic stroke over the summer and had his anticoagulation stopped. He has been having some lower extremity swelling. He saw his local metal crafts teacher and was started on 40 mg of Lasix which he had a dose yesterday as well as a dose today. He has had minimal improvement of his swelling and came in for about. He notes that he has some bruising over the dorsum of his right foot. He has pain at that site. Patient does not recall any trauma, he does not recall any injuries or dropping anything on his foot. He denies any fevers or chills. No sweats. No chest pain or shortness of breath. No nausea or vomiting. No other GI or urinary symptoms. He states he has not had a decrease in overall output but thought he would make more urine with his increase in Lasix. He has not had any other new medication changes at this time. He is accompanied by his today. He has follow-up this week at [facility] for a tagged red blood cell study and to see his metal crafts teacher face to face. Related Data Home Medications Medication Instructions Recorded Confirmed multivitamin 1 cap PO DAILY #0 07/30/11 06/11/21 rosuvastatin 20 mg tablet (Crestor) 20 mg PO DAILY #0 03/16/12 06/11/21 apixaban 5 mg tablet (Eliquis) 5 mg PO BID 08/21/19 06/11/21 lisinopril 10 mg tablet 10 mg PO BID 08/21/19 06/11/21 NITROGLYCERIN (#NITROSTAT) 0.4 mg SUBLINGUAL PRN 08/22/19 06/11/21 magnesium 1 tab PO DAILY 08/22/19 06/11/21 furosemide 20 mg tablet (Lasix) 20 mg PO DAILY 06/18/20 06/11/21 metoprolol succinate 50 mg 50 mg PO DAILY 03/07/21 06/11/21 tablet,extended release 24 hr amoxicillin 500 mg capsule 500 mg PO TID 06/11/21 06/11/21 aspirin 81 mg tablet 81 mg PO DAILY 06/11/21 06/11/21 Allergies Allergy/AdvReac Type Severity Reaction Status Date / Time clopidogrel [From PLAVIX] Allergy Severe hosipitaliz Verified 04/18/21 10:06 ation procaine [PROCAINE] Allergy Mild NUMBNESS Verified 04/18/21 10:06 WILL NOT WEAR OFF PER PATIENT Review of Systems Review of Systems ROS Unobtainable: All systems reviewed & are unremarkable except as noted in HPI and below Patient History Medical History Atrial fibrillation CAD (coronary atherosclerotic disease) (07/30/11) Melanoma Other and unspecified hyperlipidemia (07/30/11) Unspecified essential hypertension (07/30/11) Weight loss Surgical History S/P TAVR (transcatheter aortic valve replacement) Stented coronary artery Social History household members: spouse Smoking Status: Former smoker alcohol intake: current Smoking Status: Former smoker alcohol intake frequency: a few times a week Substance Use Type: does not use Exam Narrative Exam Narrative: GENERAL: Alert and oriented x three, male in mild distress. HEENT: Head normocephalic, atraumatic, EOMI, pupils reactive, face symmetric, moist mucous membranes NECK: Supple, full range of motion CARDIOVASCULAR: Regular rate and rhythm without murmurs, rubs or gallops. RESPIRATORY: Breath sounds equal bilaterally, no wheezes rales or rhonchi. ABDOMEN: Soft, nontender. Normoactive bowel sounds all 4 quadrants. No guarding or rebound, rigidity, no mass : No CVA tenderness EXTREMITIES: Normal range of motion, bilateral lower extremity edema. Neurovascularly intact. Patient's cap refill is equal bilateral lower extremities. He does have bruising over the dorsum of his right foot excluding his toes. The palmar sized area. He has generalized swelling of both lower extremities but has possibly slightly more at this site. He does have tenderness to palpation over the metatarsal joints but no obvious deformity. He has normal sensation to light touch in all 10 toes. He has normal range of motion. NEUROLOGICAL: Cranial nerves II through XII grossly intact. Moving all extremities SKIN: Warm, dry, no petechiae, no rashes or lesions, lacerations otherwise noted. Initial Vital Signs Initial Vital Signs: Vital Signs Temperature 97.1 F L 08/01/21 13:05 Pulse Rate 70 08/01/21 13:05 Respiratory Rate 18 08/01/21 13:05 Blood Pressure 180/87 H 08/01/21 13:05 Pulse Oximetry 100 08/01/21 13:05 Course Orders Ordered: ED Orders 08/01/21 13:23 XR chest 1V Stat 08/01/21 13:30 BNP [NT-proBNP (BNP-Adult 18+)] Stat Complete Blood Count AUTO DIFF Stat Comprehensive Metabolic Panel Stat Lactate (Lactic Acid) Stat Lipase Stat Troponin & CK Cardiac Panel Stat 08/01/21 13:56 XR foot RT min 3V Stat 08/01/21 14:17 EKG-12 Lead Stat 08/01/21 15:24 Troponin I Stat Discontinued Medications Furosemide (Furosemide 40 Mg/4 Ml Vial) 40 mg IV NOW ONE Stop: 08/01/21 15:25 Last Admin: 08/01/21 15:28 Dose: 40 mg Documented by: ETHAN Reevaluation(s) Reevaluation #1: Patient on recheck continues to have what appeared to be bruising on the foot but continues to have normal sensation, cap refill with no significant changes to pulses, coloration with no pallor or spreading cyanosis has minimal to no pain in his lower extremity. Reviewed his labs, imaging and my suspicion that this is more ecchymosis but strict return precautions as he does have a history of AFib in is no longer anticoagulated. Vital Signs Vital signs: Vital Signs - 8 hr 08/01/21 13:05 08/01/21 17:12 Temperature 97.1 F L Pulse Rate 70 62 Respiratory Rate 18 20 Blood Pressure 180/87 H 169/78 H Pulse Oximetry 100 98 MDM - Extremity (Nontraumatic) Lab Data Result diagrams: 08/01/21 13:30 08/01/21 13:30 Labs: Lab Results 08/01/21 08/01/21 08/01/21 Range/Units 13:30 13:30 13:30 WBC 9.1 (4.5-11.0) X10^3/uL RBC 4.62 (4.5-5.9) X10^6/uL Hgb 11.4 L (13.5-17.5) g/dL Hct 35.8 L (41-53) % MCV 77.5 L (80-100) fL MCH 24.6 L (26-34) PG MCHC 31.7 (30-36) % RDW 20.3 H (11.6-14.8) % Plt Count 128 L (150-400) X10^3/uL Neut % (Auto) 74.6 (50-75) % Lymph % (Auto) 14.3 L (25-40) % [place] % (Auto) 9.7 (3-14) % Eos % (Auto) 0.5 L (2-4) % Baso % (Auto) 0.9 (0-2) % Neut # (Auto) 6800 (4325-2766) /uL Lymph # (Auto) 1300 (8770-9209) /uL [place] # (Auto) 900 (0-900) /uL Eos # (Auto) 0 (0-450) /uL Baso # (Auto) 100 (0-100) /uL RBC Morphology See below Anisocytosis 2+ H Ovalocytes 1+ H Sodium 144 (137-145) mmol/L Potassium 4.6 (3.4-5.1) mmol/L Chloride 104 (98-107) mmol/L Carbon Dioxide 34 H (22-32) mmol/L BUN 17 (9-20) mg/dL Creatinine 0.92 (0.66-1.25) mg/dL Estimated GFR > 60.0 (>60) mL/min BUN/Creatinine Ratio 18.5 (6-22) Glucose 120 H (80-110) mg/dL Lactate (0.7-2.1) mmol/L Calcium 9.4 (8.4-10.2) mg/dL Total Bilirubin 0.4 (0.2-1.3) mg/dL AST 35 (17-59) IU/L ALT 35 (<50) IU/L Alkaline Phosphatase 94 (38-126) U/L Total Creatine Kinase 62 (55-170) U/L CK-MB (CK-2) TNP CK-MB (CK-2) Rel Index TNP Troponin I 0.059 H (0.01-0.034) ng/mL NT-Pro-B Natriuret Pep 3950 H (<450) pg/mL Total Protein 6.8 (6.3-8.2) g/dL Albumin 4.0 (3.5-5.0) g/dL Globulin 2.8 (1.7-4.1) g/dL Albumin/Globulin Ratio 1.4 (1.0-2.8) Lipase 345 H (23-300) U/L 08/01/21 08/01/21 Range/Units 13:30 15:24 WBC (4.5-11.0) X10^3/uL RBC (4.5-5.9) X10^6/uL Hgb (13.5-17.5) g/dL Hct (41-53) % MCV (80-100) fL MCH (26-34) PG MCHC (30-36) % RDW (11.6-14.8) % Plt Count (150-400) X10^3/uL Neut % (Auto) (50-75) % Lymph % (Auto) (25-40) % [place] % (Auto) (3-14) % Eos % (Auto) (2-4) % Baso % (Auto) (0-2) % Neut # (Auto) (7685-8994) /uL Lymph # (Auto) (5018-5229) /uL [place] # (Auto) (0-900) /uL Eos # (Auto) (0-450) /uL Baso # (Auto) (0-100) /uL RBC Morphology Anisocytosis Ovalocytes Sodium (137-145) mmol/L Potassium (3.4-5.1) mmol/L Chloride (98-107) mmol/L Carbon Dioxide (22-32) mmol/L BUN (9-20) mg/dL Creatinine (0.66-1.25) mg/dL Estimated GFR (>60) mL/min BUN/Creatinine Ratio (6-22) Glucose (80-110) mg/dL Lactate 1.6 (0.7-2.1) mmol/L Calcium (8.4-10.2) mg/dL Total Bilirubin (0.2-1.3) mg/dL AST (17-59) IU/L ALT (<50) IU/L Alkaline Phosphatase (38-126) U/L Total Creatine Kinase (55-170) U/L CK-MB (CK-2) CK-MB (CK-2) Rel Index Troponin I 0.057 H (0.01-0.034) ng/mL NT-Pro-B Natriuret Pep (<450) pg/mL Total Protein (6.3-8.2) g/dL Albumin (3.5-5.0) g/dL Globulin (1.7-4.1) g/dL Albumin/Globulin Ratio (1.0-2.8) Lipase (23-300) U/L MDM Narrative Medical decision making narrative: This is a 76-year-old male with bilateral lower extremity swelling and CHF with known congestive heart disease and follow- up this week with his Cardiology team at [facility]. patient just had his Lasix increased to 40 mg daily yesterday. He is given additional dose here as well as asked her to increase his Lasix for the next 3 days and then return to his prescribed dose. He is noted to have ecchymosis on his foot but does not recall injuring it. He does not appear to have any decrease in his arterial or venous flow on examination. Discharge Plan Departure Patient Disposition: Home Clinical Impression: CHF (congestive heart failure), Ecchymosis Activity Restrictions/Additional Instructions: Your imaging and labs today do reflect fluid overload. I would increase your Lasix to 40mg in the morning and 40mg in the evening x 3 days, then return to 40mg daily. Your skin changes on your foot appear to be bruising and you have appropriate pulses in your foot. Follow up with your medical team this week. I hope your appointments go well. Please share your findings with your cardiology team. Your pro-BNP is 3950 (I don't have recent priors available for comparision Please return if you are having fevers, new chest pain or shortness of breath, if the swelling in your legs is worsening, lightheadedness or passing out, if you notice new skin changes to your legs, loss of sensation, rapidly worsening or severe pain or other new or concerning symptoms. Prescriptions: No Action multivitamin Capsule 1 cap PO DAILY Qty: 0 RF: 0 rosuvastatin [Crestor] 20 MG tablet 20 mg PO DAILY Qty: 0 RF: 0 Eliquis 5 mg tablet 5 mg PO BID RF: 0 lisinopril 10 mg tablet 10 mg PO BID RF: 0 furosemide [Lasix] 20 mg Tablet 20 mg PO DAILY RF: 0 amoxicillin 500 mg capsule 500 mg PO TID RF: 0 aspirin 81 mg Tablet 81 mg PO DAILY RF: 0 magnesium 1 tab PO DAILY RF: 0 NITROGLYCERIN (#NITROSTAT) 0.4 mg Sublingual PRN RF: 0 metoprolol succinate 50 mg Tablet Extended Release 24 Hr 50 mg PO DAILY RF: 0 Referrals: Adonis Huber MD [Physician] - Sherri Waggoner MD [Primary Care Provider] -
[2021-08-01 13:48] LABS: Add Manual Diff / Slide Review NO; Basophils Absolute Auto 100 /uL (0-100); Basophils Percent Auto 0.9 % (0-2); Eosinophils Absolute Auto 0 /uL (0-450); Eosinophils Percent Auto 0.5 % (2-4); Hematocrit 35.8 % (41-53); Hemoglobin 11.4 g/dL (13.5-17.5); Lymphocytes Absolute Auto 1300 /uL (1100-4500); Lymphocytes Percent Auto 14.3 % (25-40); Mean Corpuscular HGB Conc 31.7 % (30-36); Mean Corpuscular Hemoglobin 24.6 PG (26-34); Mean Corpuscular Volume 77.5 fL (80-100); Monocytes Absolute Auto 900 /uL (0-900); Monocytes Percent Auto 9.7 % (3-14); Neutrophils Absolute Auto 6800 /uL (1500-7000); Neutrophils Percent Auto 74.6 % (50-75); Platelet Count 128 X10^3/uL (150-400); Red Blood Cell Count 4.62 X10^6/uL (4.5-5.9); Red Cell Distribution Width 20.3 % (11.6-14.8); White Blood Cell Count 9.1 X10^3/uL (4.5-11.0)
[2021-08-01 13:54] LABS: Lactate (Lactic Acid) 1.6 mmol/L (0.7-2.1)
[2021-08-01 13:56] LABS: Alanine Aminotransferase 35 IU/L (<50); Albumin Globulin Ratio 1.4 (1.0-2.8); Alkaline Phosphatase 94 U/L (38-126); Aspartate Aminotransferase 35 IU/L (17-59); BUN Creatinine Ratio 18.5 (6-22); Bilirubin Total 0.4 mg/dL (0.2-1.3); Blood Urea Nitrogen 17 mg/dL (9-20); Calcium 9.4 mg/dL (8.4-10.2); Carbon Dioxide 34 mmol/L (22-32); Chloride 104 mmol/L (98-107); Creatine Kinase 62 U/L (55-170); Estimated Glomerular Filt Rate > 60.0 mL/min (>60); Globulin 2.8 g/dL (1.7-4.1); Glucose 120 mg/dL (80-110); HEMOLYSIS < 15 (0-50); Lipase 345 U/L (23-300); Potassium 4.6 mmol/L (3.4-5.1); Sodium 144 mmol/L (137-145); Total Protein 6.8 g/dL (6.3-8.2)
--- NOTE | 2021-08-01 13:56 | DI.RAD.S_ITS ---
PROCEDURE: XR FOOT RT MIN 3V INDICATIONS: Bruising foot TECHNIQUE: 3 views of the foot were acquired. COMPARISON: None. FINDINGS: Bones: No fractures or dislocations. No suspicious bony lesions. Small dorsal and plantar calcaneal enthesophytes. Bipartite lateral hallux sesamoid. Mild joint space loss with osteophytosis about the 1st interphalangeal and metatarsophalangeal joints. Soft tissues: No tibiotalar joint effusion. Dorsal soft tissue swelling overlying the midfoot. IMPRESSION: No acute osseous abnormality. Dictated by: Norbert Diaz M.D. on 08/01/2021 at 15:01 Approved by: Norbert Diaz M.D. on 08/01/2021 at 15:04
[2021-08-01 14:07] LABS: Troponin I 0.059 ng/mL (0.01-0.034)
[2021-08-01 14:12] LABS: Anisocytosis 2+; Ovalocytes 1+
[2021-08-01 14:14] LABS: NT-proBNP (BNP-Adult 18+) 3950 pg/mL (<450)
[2021-08-01] MEDS: FUROSEMIDE 40 MG/4 ML VIAL IV (15:28)
[2021-08-01 15:52] LABS: Troponin I 0.057 ng/mL (0.01-0.034)
[2021-08-01 17:12] VITALS: BP 169/78; PULSE 62; RESP 20; O2SAT 98
== END 2021-08-01 17:15 | disposition home or self-care (01) ==
PROVIDERS: Emergency Provider Emergency Medicine; Family Provider Internal Medicine; PCP Internal Medicine
DX: I50.9 Heart failure, unspecified (principal); R58 Hemorrhage, not elsewhere classified; R07.9 Chest pain, unspecified
CPT/HCPCS: 36415; 71045; 73630; 80053; 82550; 83605; 83690; 83880; 84484; 85025; 93005; 96374; 99284; J1940

== ENCOUNTER 2021-08-10 15:54 | Emergency (ER) | payer MEDICARE, OTHER, SELFPAY ==
[2021-03-07 13:01] VITALS: BMI 27.1
[2021-08-10] VITALS (15 sets, daily range): BP systolic 133–157; BP diastolic 67–108; PULSE 59–69; RESP 18–28; TEMP 36.4; O2SAT 96–98; BMI 27.6
--- NOTE | 2021-08-10 17:13 | ED.EXTPRO ---
HPI - Extremity Problem <Adeola Moy, DO - Last Filed: 08/11/21 15:45> General Chief complaint: Extremity Problem,Nontraumatic Stated complaint: Bad Right Foot Time Seen by Provider: 08/10/21 16:42 Source: patient and family Mode of arrival: Ambulatory Limitations: no limitations History of Present Illness HPI Narrative: Patient is a 76-year-old male who had recent hemorrhagic stroke, recent endocarditis was on 10 weeks of IV antibiotics and is continued on amoxicillin per ID and his cardiovascular team. Was seen and evaluated in the emergency department here on 08/01/2021 for increased swelling in his lower extremities. That time his BNP was elevated at 3900 he had recently seen his briquetter operator who started him on 40 mg of Lasix. At that visit it was increased to 40 mg twice daily. He states since then he really has not urinated. He was previously on Lasix and says that he urinated quite a bit but he has not been urinating. He continues to have increased swelling in his legs and now his toes are black and blue. He has not had any fever or chills. He has some mild erythema on bilateral lower extremities. He has increasing shortness of breath with exertion but no significant chest pain. He feels like some of his breathing issues have improved since the doubling Lasix but he has not quite noted significant improvement. Related Data Home Medications Medication Instructions Recorded Confirmed multivitamin 1 cap PO DAILY #0 07/30/11 06/11/21 rosuvastatin 20 mg tablet (Crestor) 20 mg PO DAILY #0 03/16/12 06/11/21 apixaban 5 mg tablet (Eliquis) 5 mg PO BID 08/21/19 06/11/21 lisinopril 10 mg tablet 10 mg PO BID 08/21/19 06/11/21 NITROGLYCERIN (#NITROSTAT) 0.4 mg SUBLINGUAL PRN 08/22/19 06/11/21 magnesium 1 tab PO DAILY 08/22/19 06/11/21 furosemide 20 mg tablet (Lasix) 20 mg PO DAILY 06/18/20 06/11/21 metoprolol succinate 50 mg 50 mg PO DAILY 03/07/21 06/11/21 tablet,extended release 24 hr amoxicillin 500 mg capsule 500 mg PO TID 06/11/21 06/11/21 aspirin 81 mg tablet 81 mg PO DAILY 06/11/21 06/11/21 Allergies Allergy/AdvReac Type Severity Reaction Status Date / Time clopidogrel [From PLAVIX] Allergy Severe hosipitaliz Verified 04/18/21 10:06 ation procaine [PROCAINE] Allergy Mild NUMBNESS Verified 04/18/21 10:06 WILL NOT WEAR OFF PER PATIENT Review of Systems <Adeola Winter DO - Last Filed: 08/11/21 15:45> Review of Systems Narrative: GENERAL: Denies chills, fatigue, malaise, fever, sweats, travel HEENT: Denies sinus pain, ear pain, sore throat, difficulty swallowing, neck pain RESPIRATORY: Increasing shortness of breath, see HPI CARDIOVASCULAR: Denies chest pain, palpitations, orthopnea, edema GASTROINTESTINAL: Denies nausea, vomiting, abdominal pain, diarrhea, constipation, melena. : Denies dysuria, frequency, incontinence, hematuria, urinary retention, flank pain. MUSCULOSKELETAL:+ lower extremity edema Denies weakness, joint pain, or bony pain SKIN: No rash, no erythema, no pruritus NEUROLOGIC: Denies weakness, dizziness, headache, numbness, change in speech, confusion PSYCHIATRIC: No concerning psychosocial issues. 12 point review of systems is negative except for those stated above and HPI Patient History <Adeola Winter DO - Last Filed: 08/11/21 15:45> Medical History Atrial fibrillation CAD (coronary atherosclerotic disease) (07/30/11) Melanoma Other and unspecified hyperlipidemia (07/30/11) Unspecified essential hypertension (07/30/11) Weight loss Surgical History S/P TAVR (transcatheter aortic valve replacement) Stented coronary artery Social History household members: spouse Smoking Status: Former smoker alcohol intake: current Smoking Status: Former smoker alcohol intake frequency: a few times a week Substance Use Type: does not use Exam <DO Ariana Lopes Last Filed: 08/11/21 15:45> Initial Vital Signs Initial Vital Signs: Vital Signs Temperature 97.6 F 08/10/21 16:07 Pulse Rate 65 08/10/21 16:07 Respiratory Rate 18 08/10/21 16:07 Blood Pressure 140/73 08/10/21 16:07 Pulse Oximetry 97 08/10/21 16:07 GENERAL: Alert very pleasant 76-year-old male HEENT: Head atraumatic,EOMI, pupils reactive, face symmetric, moist mucous membranes CARDIOVASCULAR: Regular rate and rhythm without murmurs, rubs or gallops. RESPIRATORY: Breath sounds equal bilaterally, no wheezes rales or rhonchi. ABDOMEN: Soft, nontender. Normoactive bowel sounds all 4 quadrants. No guarding or rebound. EXTREMITIES: Normal range of motion, no clubbing. Significant bilateral lower extremity edema +2 pitting. Neurovascularly intact NEUROLOGICAL: Alert and oriented x4.Normal gait and speech. SKIN: Right foot 2nd 3rd and 4th toe contusion minimal erythema no lacerations no abscess <Donnell Lazo DO - Last Filed: 08/11/21 02:43> Initial Vital Signs Initial Vital Signs: Vital Signs Temperature 97.6 F 08/10/21 16:07 Pulse Rate 65 08/10/21 16:07 Respiratory Rate 18 08/10/21 16:07 Blood Pressure 140/73 08/10/21 16:07 Pulse Oximetry 97 08/10/21 16:07 Course <Adeola Winter DO - Last Filed: 08/11/21 15:45> Orders Ordered: Discontinued Medications Furosemide (Furosemide 100 Mg/10 Ml Vial) 60 mg IV NOW ONE Stop: 08/10/21 18:30 Last Admin: 08/10/21 18:53 Dose: 60 mg Documented by: REGANE Vital Signs Vital signs: Vital Signs - 8 hr 08/10/21 19:00 08/10/21 19:30 08/10/21 19:31 Pulse Rate 60 61 61 Respiratory Rate 18 18 Blood Pressure 155/74 H Pulse Oximetry 97 98 98 08/10/21 20:00 08/10/21 20:30 08/10/21 20:38 Pulse Rate 61 69 60 Respiratory Rate 21 Blood Pressure 155/67 H Pulse Oximetry 98 98 <Donnell Lazo DO - Last Filed: 08/11/21 02:43> Orders Ordered: Discontinued Medications Furosemide (Furosemide 100 Mg/10 Ml Vial) 60 mg IV NOW ONE Stop: 08/10/21 18:30 Last Admin: 08/10/21 18:53 Dose: 60 mg Documented by: FRANCISCO Vital Signs Vital signs: Vital Signs - 8 hr 08/10/21 19:00 08/10/21 19:30 08/10/21 19:31 Pulse Rate 60 61 61 Respiratory Rate 18 18 Blood Pressure 155/74 H Pulse Oximetry 97 98 98 08/10/21 20:00 08/10/21 20:30 08/10/21 20:38 Pulse Rate 61 69 60 Respiratory Rate 21 Blood Pressure 155/67 H Pulse Oximetry 98 98 MDM - Extremity (Nontraumatic) <Adeola Winter, - Last Filed: 08/11/21 15:45> Lab Data Result diagrams: 08/10/21 16:25 08/10/21 16:25 Labs: Lab Results 08/10/21 08/10/21 08/10/21 Range/Units 16:25 16:25 16:25 WBC 9.1 (4.5-11.0) X10^3/uL RBC 4.77 (4.5-5.9) X10^6/uL Hgb 11.8 L (13.5-17.5) g/dL Hct 37.1 L (41-53) % MCV 77.7 L (80-100) fL MCH 24.8 L (26-34) PG MCHC 31.9 (30-36) % RDW 22.2 H (11.6-14.8) % Plt Count 142 L (150-400) X10^3/uL Neut % (Auto) 73.0 (50-75) % Lymph % (Auto) 16.2 L (25-40) % [place] % (Auto) 9.5 (3-14) % Eos % (Auto) 0.6 L (2-4) % Baso % (Auto) 0.7 (0-2) % Neut # (Auto) 6600 (3977-5780) /uL Lymph # (Auto) 1500 (6880-2454) /uL [place] # (Auto) 900 (0-900) /uL Eos # (Auto) 100 (0-450) /uL Baso # (Auto) 100 (0-100) /uL RBC Morphology See below Anisocytosis 1+ H Sodium 142 (137-145) mmol/L Potassium 3.9 (3.4-5.1) mmol/L Chloride 100 (98-107) mmol/L Carbon Dioxide 32 (22-32) mmol/L BUN 17 (9-20) mg/dL Creatinine 0.89 (0.66-1.25) mg/dL Estimated GFR > 60.0 (>60) mL/min BUN/Creatinine Ratio 19.1 (6-22) Glucose 104 (80-110) mg/dL Lactate 1.2 (0.7-2.1) mmol/L Calcium 9.9 (8.4-10.2) mg/dL Total Bilirubin 0.6 (0.2-1.3) mg/dL AST 41 (17-59) IU/L ALT 34 (<50) IU/L Alkaline Phosphatase 93 (38-126) U/L Total Creatine Kinase 52 L (55-170) U/L CK-MB (CK-2) TNP CK-MB (CK-2) Rel Index TNP Troponin I 0.049 H (0.01-0.034) ng/mL NT-Pro-B Natriuret Pep 3980 H (<450) pg/mL Total Protein 7.5 (6.3-8.2) g/dL Albumin 4.5 (3.5-5.0) g/dL Globulin 3.0 (1.7-4.1) g/dL Albumin/Globulin Ratio 1.5 (1.0-2.8) Lipase 124 D (23-300) U/L Procalcitonin (<0.5) ng/mL 08/10/21 08/10/21 Range/Units 16:25 18:40 WBC (4.5-11.0) X10^3/uL RBC (4.5-5.9) X10^6/uL Hgb (13.5-17.5) g/dL Hct (41-53) % MCV (80-100) fL MCH (26-34) PG MCHC (30-36) % RDW (11.6-14.8) % Plt Count (150-400) X10^3/uL Neut % (Auto) (50-75) % Lymph % (Auto) (25-40) % [place] % (Auto) (3-14) % Eos % (Auto) (2-4) % Baso % (Auto) (0-2) % Neut # (Auto) (0809-2683) /uL Lymph # (Auto) (8713-7863) /uL [place] # (Auto) (0-900) /uL Eos # (Auto) (0-450) /uL Baso # (Auto) (0-100) /uL RBC Morphology Anisocytosis Sodium (137-145) mmol/L Potassium (3.4-5.1) mmol/L Chloride (98-107) mmol/L Carbon Dioxide (22-32) mmol/L BUN (9-20) mg/dL Creatinine (0.66-1.25) mg/dL Estimated GFR (>60) mL/min BUN/Creatinine Ratio (6-22) Glucose (80-110) mg/dL Lactate (0.7-2.1) mmol/L Calcium (8.4-10.2) mg/dL Total Bilirubin (0.2-1.3) mg/dL AST (17-59) IU/L ALT (<50) IU/L Alkaline Phosphatase (38-126) U/L Total Creatine Kinase (55-170) U/L CK-MB (CK-2) CK-MB (CK-2) Rel Index Troponin I 0.050 H (0.01-0.034) ng/mL NT-Pro-B Natriuret Pep (<450) pg/mL Total Protein (6.3-8.2) g/dL Albumin (3.5-5.0) g/dL Globulin (1.7-4.1) g/dL Albumin/Globulin Ratio (1.0-2.8) Lipase (23-300) U/L Procalcitonin 0.05 (<0.5) ng/mL Imaging Data Chest x-ray: Radiologist's Impression: PROCEDURE:? XR CHEST 1V ? INDICATIONS:? short of breath ? TECHNIQUE:? One view of the chest was acquired.? ? COMPARISON:? [facility], CR, XR CHEST 1V, 08/01/2021, 13:26. ? FINDINGS:? ? Surgical changes and devices:? Stable appearance of left chest wall 2 lead cardiac device.? Postsurgical changes of aortic valve replacement and coronary artery bypass. ? Lungs and pleura:? Lungs are clear.? No pleural effusions or pneumothorax.? ? Mediastinum:? Mediastinal contours appear normal.? Heart size is enlarged, unchanged. ? Bones and chest wall:? No suspicious bony lesions.? Degenerative changes of the shoulders and spine.? Overlying soft tissues appear unremarkable.? ? IMPRESSION:? ? No evidence of an acute cardiopulmonary abnormality. ? Stable cardiomegaly. ? ? Dictated by: Mathieu Lopez D.O. on 08/10/2021 at 17:03 ? ? Approved by: Mathieu Lopez D.O. on 08/10/2021 at 17 Extremity x-ray #1: Radiologist's Impression: PROCEDURE:? XR FOOT RT MIN 3V ? INDICATIONS:? swelling pain ? TECHNIQUE:? 3 views of the foot were acquired.? ? COMPARISON:? [facility], CR, XR FOOT RT MIN 3V, 08/01/2021, 14:08. ? FINDINGS:? ? Bones:? No fractures or dislocations.? No suspicious bony lesions.? Stable degenerative changes of the great toe at the 1st metatarsophalangeal joint. ? Soft tissues:? No tibiotalar joint effusion.? Stable spurring of the Achilles and plantar fascial insertions.? Vascular calcifications.? Mild nonspecific swelling is noted throughout the foot. ? ? IMPRESSION:? ? No acute osseous abnormality. ? Nonspecific soft tissue swelling. ? Unchanged degenerative changes of the 1st metatarsophalangeal joint. ? ? Dictated by: Mathieu Lopez D.O. on 08/10/2021 at 17:05 ? ? ECG Data Interpretation: Paced rhythm rate [address] changes MDM Narrative Medical decision making narrative: Patient does have quite a bit of swelling in his lower extremities. He is having shortness of breath with exertion he continues to have BNP elevation of 3900. Symptoms are consistent with congestive heart failure. It does not sound like he is responding well to Lasix dosage may need to be adjusted versus change in medication. At this time he is given 60 mg I be Lasix in the emergency department. He has indeterminate troponin x2 with been minimal change it is actually lower than previous troponins. He overall appears well. No sign of infection. His right 2nd 3rd and 4th toe are contusion with out trauma. Possibly from a edema I think infection is unlikely. Waiting for ultrasound to rule out DVT. Patient had a recent echocardiogram 08/04/2021 at [facility]. I do not have records of this. He is follow closely with cardiology. Patient signed out to Dr. Lazo pending ultrasound. <Donnell Lazo, DO - Last Filed: 08/11/21 02:43> Lab Data Labs: Lab Results 08/10/21 08/10/21 08/10/21 Range/Units 16:25 16:25 16:25 WBC 9.1 (4.5-11.0) X10^3/uL RBC 4.77 (4.5-5.9) X10^6/uL Hgb 11.8 L (13.5-17.5) g/dL Hct 37.1 L (41-53) % MCV 77.7 L (80-100) fL MCH 24.8 L (26-34) PG MCHC 31.9 (30-36) % RDW 22.2 H (11.6-14.8) % Plt Count 142 L (150-400) X10^3/uL Neut % (Auto) 73.0 (50-75) % Lymph % (Auto) 16.2 L (25-40) % [place] % (Auto) 9.5 (3-14) % Eos % (Auto) 0.6 L (2-4) % Baso % (Auto) 0.7 (0-2) % Neut # (Auto) 6600 (7061-0997) /uL Lymph # (Auto) 1500 (0708-6169) /uL [place] # (Auto) 900 (0-900) /uL Eos # (Auto) 100 (0-450) /uL Baso # (Auto) 100 (0-100) /uL RBC Morphology See below Anisocytosis 1+ H Sodium 142 (137-145) mmol/L Potassium 3.9 (3.4-5.1) mmol/L Chloride 100 (98-107) mmol/L Carbon Dioxide 32 (22-32) mmol/L BUN 17 (9-20) mg/dL Creatinine 0.89 (0.66-1.25) mg/dL Estimated GFR > 60.0 (>60) mL/min BUN/Creatinine Ratio 19.1 (6-22) Glucose 104 (80-110) mg/dL Lactate 1.2 (0.7-2.1) mmol/L Calcium 9.9 (8.4-10.2) mg/dL Total Bilirubin 0.6 (0.2-1.3) mg/dL AST 41 (17-59) IU/L ALT 34 (<50) IU/L Alkaline Phosphatase 93 (38-126) U/L Total Creatine Kinase 52 L (55-170) U/L CK-MB (CK-2) TNP CK-MB (CK-2) Rel Index TNP Troponin I 0.049 H (0.01-0.034) ng/mL NT-Pro-B Natriuret Pep 3980 H (<450) pg/mL Total Protein 7.5 (6.3-8.2) g/dL Albumin 4.5 (3.5-5.0) g/dL Globulin 3.0 (1.7-4.1) g/dL Albumin/Globulin Ratio 1.5 (1.0-2.8) Lipase 124 D (23-300) U/L Procalcitonin (<0.5) ng/mL 08/10/21 08/10/21 Range/Units 16:25 18:40 WBC (4.5-11.0) X10^3/uL RBC (4.5-5.9) X10^6/uL Hgb (13.5-17.5) g/dL Hct (41-53) % MCV (80-100) fL MCH (26-34) PG MCHC (30-36) % RDW (11.6-14.8) % Plt Count (150-400) X10^3/uL Neut % (Auto) (50-75) % Lymph % (Auto) (25-40) % [place] % (Auto) (3-14) % Eos % (Auto) (2-4) % Baso % (Auto) (0-2) % Neut # (Auto) (6041-9268) /uL Lymph # (Auto) (2061-3649) /uL [place] # (Auto) (0-900) /uL Eos # (Auto) (0-450) /uL Baso # (Auto) (0-100) /uL RBC Morphology Anisocytosis Sodium (137-145) mmol/L Potassium (3.4-5.1) mmol/L Chloride (98-107) mmol/L Carbon Dioxide (22-32) mmol/L BUN (9-20) mg/dL Creatinine (0.66-1.25) mg/dL Estimated GFR (>60) mL/min BUN/Creatinine Ratio (6-22) Glucose (80-110) mg/dL Lactate (0.7-2.1) mmol/L Calcium (8.4-10.2) mg/dL Total Bilirubin (0.2-1.3) mg/dL AST (17-59) IU/L ALT (<50) IU/L Alkaline Phosphatase (38-126) U/L Total Creatine Kinase (55-170) U/L CK-MB (CK-2) CK-MB (CK-2) Rel Index Troponin I 0.050 H (0.01-0.034) ng/mL NT-Pro-B Natriuret Pep (<450) pg/mL Total Protein (6.3-8.2) g/dL Albumin (3.5-5.0) g/dL Globulin (1.7-4.1) g/dL Albumin/Globulin Ratio (1.0-2.8) Lipase (23-300) U/L Procalcitonin 0.05 (<0.5) ng/mL Imaging Data US - DVT: Radiologist's Impression: Launch?[place] [address] Ultrasound Report Signed Patient: Jesse Dietz MR#: [id number] : 1945 Acct:[id number] Age/Sex: 76 / M Date of Service: 08/10/21 Loc: Accession Number: [id number] ?? Procedure: US periph venous low extrem rt Ordering Provider: Adeola Winter D.O. PROCEDURE:? US PERIPH VENOUS LOW EXTREM RT ? INDICATIONS:? swelling ? TECHNIQUE:? Real-time imaging, as well as color and pulse Doppler interrogation, were performed of the lower extremity deep veins from the inguinal ligament to the popliteal fossa.? ? COMPARISON:? None. ? FINDINGS:? The common femoral, femoral and popliteal veins are normally compressible, and free of intraluminal thrombus.? Color and pulse Doppler demonstrate normal phasic intraluminal flow.? There is normal augmentation response to distal compression maneuver. ?There is soft tissue edema from popliteal fossa, calf area and the ankle. ? IMPRESSION:? No DVT in the lower extremity. ? ? Dictated by: Ankita Friedman M.D. on 08/10/2021 at 21:09 ? ? Approved by: Ankita Friedman M.D. on 08/10/2021 at 21:11 ? [facility] Narrative Medical decision making narrative: Patient does have quite a bit of swelling in his lower extremities. He is having shortness of breath with exertion he continues to have BNP elevation of 3900. Symptoms are consistent with congestive heart failure. It does not sound like he is responding well to Lasix dosage may need to be adjusted versus change in medication. At this time he is given 60 mg I be Lasix in the emergency department. He has indeterminate troponin x2 with been minimal change it is actually lower than previous troponins. He overall appears well. No sign of infection. His right 2nd 3rd and 4th toe are contusion with out trauma. Possibly from a edema I think infection is unlikely. Waiting for ultrasound to rule out DVT. Patient had a recent echocardiogram 08/04/2021 at [facility]. I do not have records of this. He is follow closely with cardiology. Patient signed out to Dr. Lazo pending ultrasound. Ultrasound is unremarkable. Patient is making dilute urine with the change in Lasix. I did have a discussion with the patient and about the plan which is consistent with when Dr. Winter had laid out for them. They had their questions answered to their apparent satisfaction and understand return precautions Discharge Plan Departure Patient Disposition: Home Clinical Impression: Congestive heart failure Qualifiers: Heart failure type: systolic Instructions: Heart Failure Activity Restrictions/Additional Instructions: *You have been diagnosed with congestive heart failure *What to do: At this time it appears that you are not responding to 40 mg of Lasix. We will increase your dose to 60 mg twice daily and it should start working. I believe that the bruising and swelling and pain in your leg is from congestive heart failure and water retention. Please continue to weigh yourself daily and monitor for any change, weight should start going down. Please limit salty foods. *Continue to take medications as directed Lasix 60 mg twice a day for 4 days *Follow up with your primary care provider in 2-3 days Please call your briquetter operator tomorrow to schedule follow-up appointment this week *Return to ER if you should have increasing swelling, redness, fever, chills, shortness of breath, chest pain or any new, worsening or concerning symptoms Prescriptions: No Action multivitamin Capsule 1 cap PO DAILY Qty: 0 RF: 0 rosuvastatin [Crestor] 20 MG tablet 20 mg PO DAILY Qty: 0 RF: 0 Eliquis 5 mg tablet 5 mg PO BID RF: 0 lisinopril 10 mg tablet 10 mg PO BID RF: 0 furosemide [Lasix] 20 mg Tablet 20 mg PO DAILY RF: 0 amoxicillin 500 mg capsule 500 mg PO TID RF: 0 aspirin 81 mg Tablet 81 mg PO DAILY RF: 0 magnesium 1 tab PO DAILY RF: 0 NITROGLYCERIN (#NITROSTAT) 0.4 mg Sublingual PRN RF: 0 metoprolol succinate 50 mg Tablet Extended Release 24 Hr 50 mg PO DAILY RF: 0 Referrals: Sherri Waggoner MD [Primary Care Provider] -
--- NOTE | 2021-08-10 17:26 | DI.RAD.S_ITS ---
PROCEDURE: XR FOOT RT MIN 3V INDICATIONS: swelling pain TECHNIQUE: 3 views of the foot were acquired. COMPARISON: [facility], , XR FOOT RT MIN 3V, 08/01/2021, 14:08. FINDINGS: Bones: No fractures or dislocations. No suspicious bony lesions. Stable degenerative changes of the great toe at the 1st metatarsophalangeal joint. Soft tissues: No tibiotalar joint effusion. Stable spurring of the Achilles and plantar fascial insertions. Vascular calcifications. Mild nonspecific swelling is noted throughout the foot. IMPRESSION: No acute osseous abnormality. Nonspecific soft tissue swelling. Unchanged degenerative changes of the 1st metatarsophalangeal joint. Dictated by: Mathieu Lopez D.O. on 08/10/2021 at 17:05 Approved by: Mathieu Lopez D.O. on 08/10/2021 at 17:08
--- NOTE | 2021-08-10 17:26 | DI.RAD.S_ITS ---
PROCEDURE: XR CHEST 1V INDICATIONS: short of breath TECHNIQUE: One view of the chest was acquired. COMPARISON: [facility], CR, XR CHEST 1V, 08/01/2021, 13:26. FINDINGS: Surgical changes and devices: Stable appearance of left chest wall 2 lead cardiac device. Postsurgical changes of aortic valve replacement and coronary artery bypass. Lungs and pleura: Lungs are clear. No pleural effusions or pneumothorax. Mediastinum: Mediastinal contours appear normal. Heart size is enlarged, unchanged. Bones and chest wall: No suspicious bony lesions. Degenerative changes of the shoulders and spine. Overlying soft tissues appear unremarkable. IMPRESSION: No evidence of an acute cardiopulmonary abnormality. Stable cardiomegaly. Dictated by: Mathieu Lopez D.O. on 08/10/2021 at 17:03 Approved by: Mathieu Lopez D.O. on 08/10/2021 at 17:05
[2021-08-10 17:53] LABS: Alanine Aminotransferase 34 IU/L (<50); Albumin 4.5 g/dL (3.5-5.0); Albumin Globulin Ratio 1.5 (1.0-2.8); Alkaline Phosphatase 93 U/L (38-126); Aspartate Aminotransferase 41 IU/L (17-59); BUN Creatinine Ratio 19.1 (6-22); Bilirubin Total 0.6 mg/dL (0.2-1.3); Blood Urea Nitrogen 17 mg/dL (9-20); Calcium 9.9 mg/dL (8.4-10.2); Carbon Dioxide 32 mmol/L (22-32); Chloride 100 mmol/L (98-107); Creatine Kinase 52 U/L (55-170); Estimated Glomerular Filt Rate > 60.0 mL/min (>60); Glucose 104 mg/dL (80-110); HEMOLYSIS 28 (0-50); Lipase 124 U/L (23-300); Potassium 3.9 mmol/L (3.4-5.1); Sodium 142 mmol/L (137-145); Total Protein 7.5 g/dL (6.3-8.2)
[2021-08-10 17:54] LABS: Lactate (Lactic Acid) 1.2 mmol/L (0.7-2.1)
[2021-08-10 17:55] LABS: Add Manual Diff / Slide Review NO; Basophils Absolute Auto 100 /uL (0-100); Basophils Percent Auto 0.7 % (0-2); Eosinophils Absolute Auto 100 /uL (0-450); Eosinophils Percent Auto 0.6 % (2-4); Hematocrit 37.1 % (41-53); Hemoglobin 11.8 g/dL (13.5-17.5); Lymphocytes Absolute Auto 1500 /uL (1100-4500); Lymphocytes Percent Auto 16.2 % (25-40); Mean Corpuscular HGB Conc 31.9 % (30-36); Mean Corpuscular Hemoglobin 24.8 PG (26-34); Mean Corpuscular Volume 77.7 fL (80-100); Monocytes Absolute Auto 900 /uL (0-900); Monocytes Percent Auto 9.5 % (3-14); Neutrophils Absolute Auto 6600 /uL (1500-7000); Platelet Count 142 X10^3/uL (150-400); Red Blood Cell Count 4.77 X10^6/uL (4.5-5.9); Red Cell Distribution Width 22.2 % (11.6-14.8); White Blood Cell Count 9.1 X10^3/uL (4.5-11.0)
[2021-08-10 18:05] LABS: NT-proBNP (BNP-Adult 18+) 3980 pg/mL (<450); Troponin I 0.049 ng/mL (0.01-0.034)
[2021-08-10 18:10] LABS: Procalcitonin 0.05 ng/mL (<0.5)
[2021-08-10 18:51] LABS: Anisocytosis 1+
[2021-08-10] MEDS: FUROSEMIDE 100 MG/10 ML VIAL 60 MG IV (18:53)
--- NOTE | 2021-08-10 19:37 | DI.US.S_ITS ---
PROCEDURE: US PERIPH VENOUS LOW EXTREM RT INDICATIONS: swelling TECHNIQUE: Real-time imaging, as well as color and pulse Doppler interrogation, were performed of the lower extremity deep veins from the inguinal ligament to the popliteal fossa. COMPARISON: None. FINDINGS: The common femoral, femoral and popliteal veins are normally compressible, and free of intraluminal thrombus. Color and pulse Doppler demonstrate normal phasic intraluminal flow. There is normal augmentation response to distal compression maneuver. There is soft tissue edema from popliteal fossa, calf area and the ankle. IMPRESSION: No DVT in the lower extremity. Dictated by: Ankita Friedman M.D. on 08/10/2021 at 21:09 Approved by: Ankita Friedman M.D. on 08/10/2021 at 21:11
== END 2021-08-10 21:11 | disposition home or self-care (01) ==
PROVIDERS: Emergency Medicine; Emergency Provider Emergency Medicine; Family Provider Internal Medicine; PCP Internal Medicine
DX: I50.20 Unspecified systolic (congestive) heart failure (principal); R07.9 Chest pain, unspecified
CPT/HCPCS: 36415; 71045; 73620; 80053; 82550; 83605; 83690; 83880; 84145; 84484; 85025; 87040; 93005; 93010; 93971; 96374; 99284; J1940

== ENCOUNTER 2021-08-11 13:30 | Outpatient (RCR) | payer MEDICARE, OTHER, SELFPAY ==
[2021-03-07 13:01] VITALS: BMI 27.1
--- NOTE | 2021-07-31 11:48 | ST.OPIE ---
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 Jose Elias Dooley Reason for Referral Short term memory difficulty Setting Assessment Location Outpatient Care Visit Type Note Type Initial evaluation Next Note Type Next Note Type Treatment Note Patient Information Identification Type Name Medical History Miah is a 76 year old male. 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 Miah cannot see to the right side from either eye. He has a significant cardiac history including TAVR, a pacemaker, and he is currently receiving treatment for endocarditis. Miah was referred to speech therapy due to difficulty with short term memory. Language(s) Spoken in the Home Estonian Occupation Status Retired Hearing Hearing Level Impaired Auditory History Miah reported hearing impairment in both ears, but no hearing aids. He prefers to have people repeat what they said. Vision Vision Status Impaired Comments Right side neglect in both eyes Previous Therapy Previous Speech-Language Therapy No History of Therapy Currently receives OT at [facility] Subjective Patient Report Miah reported he does not have memory difficulty and said he is here because he was referred to speech therapy. He reported no pain, only some shortness of breath. Assessment Oral Motor Examination Completed No Results No concerns for speech, swallowing, or oral musculature noted. Facial features appeared symmetrical at rest and in motion. Informal Assessment Receptive Language Normal Yes Expressive Language Normal Yes Pragmatic Language Normal Yes Speech Normal Yes Formal Assessment Standardized Test/Screener Type Cognitive Linguistic Quick Test (CLQT) Administration Complete Results Results of the CLQT indicate a mild impairment in attention, but memory, executive functions, language, and visuospatial skills were all WNL. Difficulty with attention may be partially due to right visual neglect in addition to an attention deficit. Miah recognized when he had difficulty on tasks, and could identify when vision was impacting performance. However , when vision was not a factor , Miah was unable to identify why he was experiencing a problem, but could identify when he performed poorly on a task. Findings/Results Language Function Within normal limits Cognitive Function Within normal limits Findings Results of the CLQT indicate a mild impairment in attention, but memory, executive functions, language, and visuospatial skills were all WNL. Difficulty with attention may be partially due to right visual neglect in addition to an attention deficit. Don switched topics during conversation and asked questions unrelated to the task at hand, which are indicative of a deficit in attention. Recommend speech therapy to increase attention and provide compensatory strategies. Cognitive Communication Deficits Self-awareness of Cognitive- Situational awareness ( Communication Deficits recognition of problem in context;in real time) Concomitant Factors Concomitant Factors Visual field neglect Prognosis Prognosis Good Based on Cognitive status,Family support,Duration of symptoms/ severity,Time since onset Plan of Care Speech-Language Treatment Yes Frequency Once a week Duration 45 minutes Patient/Caregiver Education Patient requires further education/training Short Term Goals 1. Don will demonstrate independent use of 2 compensatory strategies in a home environment after a demonstration and practice in sessions. 2. Don will participate in education/coaching regarding attention and compensatory strategies. 3. Don will go over the results of the assessment with the clinician. Correctional Supply Supervisor Goals Don will independently use compensatory strategies and techniques from sessions to minimize impact of attention deficits in daily life. Discharge Recommendations Home
--- NOTE | 2021-07-31 11:49 | ST.OPPOC ---
Physical, Occupational [facility] Speech [facility] Visit Care Team Role Provider Type Sherri Waggoner MD Family Provider Physician Primary Care Provider Address: [address] [place] [address], [address] Jose Elias Dooley MD Attending Provider Non-Staff Referring Provider Address: [place], [address] Fax: Speech Pathology Plan of Care Plan of Care Dates 07/30/2021 - 10/24/2021 Language Function Within normal limits Cognitive Function Within normal limits Findings Results of the CLQT indicate a mild impairment in attention, but memory, executive functions, language, and visuospatial skills were all WNL. Difficulty with attention may be partially due to right visual neglect in addition to an attention deficit. Don switched topics during conversation and asked questions unrelated to the task at hand, which are indicative of a deficit in attention. Recommend speech therapy to increase attention and provide compensatory strategies. Short Term Goals 1. Don will demonstrate independent use of 2 compensatory strategies in a home environment after a demonstration and practice in sessions. 2. Don will participate in education/coaching regarding attention and compensatory strategies. 3. Don will go over the results of the assessment with the clinician. Jail Goals Don will independently use compensatory strategies and techniques from sessions to minimize impact of attention deficits in daily life. Electronically Signed by: SANTI Segovia 07/31/21 0823 Please Sign and Return: I have reviewed this Plan of Care and certify that the skilled therapy services above are required to meet the patient?s needs. Physician Signature Date Printed Name and Credentials Clinical Instructor Signature Printed Name and Credentials
--- NOTE | 2021-08-11 14:03 | ST.OPDS ---
Visit Care Team Role Provider Type Sherri Waggoner MD Family Provider Physician Primary Care Provider Address: [address] [place] [address], [id number] Jose Elias Dooley MD Attending Provider Non-Staff Referring Provider Address: [address] [place], [address] Fax: PRACTICE MANAGER Treatment Note PRACTICE MANAGER Treatment Note Start: 08/11/21 13:52 Freq: Status: Active Protocol: Document 08/11/21 13:52 ZS (Rec: 08/11/21 14:03 ZS [id number]) Speech Pathology Treatment Note Session Time Visit Start Time 13:30 Visit Stop Time 13:50 Total Visit Minutes 20 Visit Information Visit Number 1 Insurance Information Medicare Setting Treatment Setting Outpatient Care Visit Type Note Type Discharge Summary General Information General Information Miah is a 76 year old male. 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 Miah cannot see to the right side from either eye. He has a significant cardiac history including TAVR, a pacemaker, and he is currently receiving treatment for endocartidits. Miah was referred to speech therapy due to difficulty with short term memory. Miah reported hearing impairment in both ears, but no hearing aids. His last hearing check was about 19 years ago and results indicated borderline hearing. Results of the CLQT+ indicate a mild impairment in attention , but memory, executive functions, language, and visuospatial skills were all WNL. Subjective Identification Type Name Others Present Family Observations/Patient Presentation Miah arrived on time accompanied by his . Chief Complaint(s) Cognitive Objective Short Term Goals 1. Miah will demonstrate independent use of 2 compensatory strategies in a home environment after a demonstration and practice in sessions. 2. Miah will participate in education/coaching regarding attention and compensatory strategies. 3. Miah will go over the results of the assessment with the clinician. Cargo Worker Goals Miah will independently use compensatory strategies and techniques from sessions to minimize impact of attention deficits in daily life. Treatment Activities Discussed results of assessment. Provided patient/ caregiver education regarding attention, impact of attention on cognitive domains, areas he may experience difficulty with attention in day to day life, impact of vision and hearing loss on attention, and what therapy would look like. Discussed referral to global climate change analyst for hearing assessment. Assessment Impairments Identified Attention Assessment of Overall Progress Unchanged Assessment of Improvement Miah reported he does not notice a negative impact of attention in his life. He stated that he is not interested in therapy at this time, but will obtain a referral for an global climate change analyst. Miah expressed understanding of what therapy would look like, how attention deficits might impact his life, and different factors that may impact his attention skills. Discharging from therapy due to patient request. Reviewed with Patient Goals,Home Exercise Program Patient/Caregiver Understanding Excellent Plan Frequency of Treatment No Further Therapy Therapeutic Contents Cognitive-Linguistic Training, Home Exercise Program Provided Patient/Caregiver Instruction Plan of Care,Questions/ Concerns Therapy Recommendations Discharge from Speech Therapy Reason for Discharge Discharged due to patient request. Suggested Referral Other Other Referrals Audiology
== END 2021-08-12 07:56 | disposition home or self-care (01) ==
LOC: SP 13:30
PROVIDERS: Family Provider Internal Medicine; PCP Internal Medicine; Referring Provider Internal Medicine Cardiovascular Disease; Visit Provider Internal Medicine Cardiovascular Disease
DX: I61.9 Nontraumatic intracerebral hemorrhage, unspecified (principal)
CPT/HCPCS: 92507; 96125

== ENCOUNTER 2021-08-19 09:30 | Outpatient (RCR) | payer MEDICARE, OTHER, SELFPAY ==
[2021-03-07 13:01] VITALS: BMI 27.1
--- NOTE | 2021-07-08 11:12 | OT.OP.EVAL ---
Visit Care Team Role Provider Type Sherri Waggoner MD Family Provider Physician Primary Care Provider Specialty: Internal Medicine Address: [address] [place] [address], [address] Email: [email or web address] Attending Provider Non-Staff Referring Provider Specialty: Nursing Address: [address] [place] [address], [address] Email: Occupational Therapy Initial Evaluation OT Outpatient Adult Evaluation Start: 07/08/21 10:36 Freq: Status: Active Protocol: Document 07/08/21 10:37 AMS (Rec: 07/08/21 11:11 AMS [id number]) General Information Visit Start Time 08:30 Visit Stop Time 09:25 Total Visit Minutes 55 Visit Number 11/03; 11/12; visit --> KX Modifier Plan of Care Dates 07/08/21-09/30/21 Insurance Information Medicare Treatment Setting Outpatient Care Note Type Initial Evaluation Identification Confirmed Yes Identification Confirmed By Spouse Goals Treatment HEP development/Education. Eye -hand coordination w/ tennis ball to right of body seated and w/ playing catch; turning of head recommended at this time. Environmental modification to support attention to right side of space/rotation of head. Recommended practicing visual scanning with cards based activity via stacking in order /or game such as Smaato. Spouse and patient denied questions. Short Term Goals 1. Patient will engage in further standardized assessments with therapist in order to establish baseline. 2. Patient will present with improved visual scanning abilities; this will be evidenced by Don's ability to correctly identify 95% of targets with TT based visual scanning tasks, as observed on 2 separate trials x 2 separate treatment sessions. Doctor Of Dental Surgery Goals 1. Patient will be modified independent with execution of home exercise program with the support of family and friends utilizing provided written and visual instructions from therapist. Assessment/Plan Treatment Assessment Patient is a 76 year-old right hand dominant male 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 Patient was accompanied by spouse to initial evaluation. Patient was reportedly hospitalized at [facility] June 11 to June 18 and d/c to home with assist from spouse. Small aneurysm of left occipital lobe and brain bleed found w/ MRI and CAT scans. Patient received inpatient OT/PT/POTATO PEELER. He is currently being followed by Infectious disease, Cardiology, and Neurology. He has an appointments next week to determine how to proceed ( will be having PET scan and Echo). Medical history is significant for artificial valve and pacemaker; lumbar laminectomies; bilateral CTR; CABG x 5; TAVR at . In addition, Miah had L eye cataract surgery in June of 2020; plan was to have R eye cataract surgery done this year. He has been given glasses for use post-cataract surgery, however, Miah reports discomfort given the differences between the 2 lenses and has not returned to reading since having cataract surgery. iMah would like to return to driving; discussed safety concerns re: visual deficits. Patient has appointment with neuro opthalmologist in October of 2021 d/t availability of physician. Patient denied pain /discomfort. QuickDASH UE Outcome Measure score = 2.27; QuickDASH Sports/Performing Arts Module Score = 50.00 ( golf). Score based on ability to engage in golfing recreationally. WFL w/ visual tracking; WFL w/ convergence; WFL w/ fixation; errors w/ visual saccade w/ 10 column task with out <-> inner matching of columns in singular row. Unaware of errors. Correctly identified 30 out of 40 items with 2 item visual scanning activity x 8 rows. Decreased insight into visual scanning difficulties. Able to complete visual saccade task seated w/ stationary and intentional transition between whiteboards in order of number based task w/ board positioned to right of body. Reported bumping into stationary items in the home per spouse located to the right; report of being startled by spouse when approached from the right. Decreased eye-hand coordination, reaction time to objects presenting from the right. Impaired opposition bilaterally with EO and EC. Impaired awareness bilaterally w/ eye-to-nose. Patient would likely benefit from outpatient OT to support Miah's ability to successfully engage in meaningful activities; impairments identified include vision, coordination, awareness/ functional problem solving. Recommend further assessment of fine motor abilities, ROM, bimanual coordination, and right UE strength. Recommend referral to outpatient POTATO PEELER to address concerns related to short term memory deficits. Comment 12 weeks Treatment Frequency Once a Week Therapeutic Contents Active Range of Motion, Adaptive Equipment Education, Client Education,Cognitive Skills Development,Functional Activities,Home Exercise Program,Education, Neurodevelopment Treatment, Neuromuscular Re-Education, Self-Care,Therapeutic Activities,Therapeutic Exercises Suggested Referrals Speech Therapy Other Suggested Referrals d/t short term memory concerns
--- NOTE | 2021-07-08 11:38 | OT.OP.TRT ---
Visit Care Team Role Provider Type Sherri Waggoner MD Family Provider Physician Primary Care Provider Specialty: Internal Medicine Address: [address] [place] [address], [address] Email: [email or web address] AYO Goodrich Attending Provider Non-Staff Referring Provider Specialty: Nursing Address: [address] [place] [address], [id number] Email: Occupational Therapy Treatment Note OT Outpatient Treatment Note - Adult Start: 07/08/21 10:36 Freq: Status: Active Protocol: Document 07/08/21 11:36 AMS (Rec: 07/08/21 11:38 AMS [id number]) OT Outpatient Adult Treatment Note Visit Information Plan of Care Dates 07/08/21-09/30/21 Setting Treatment Setting Outpatient Care Visit Type Note Type Administrative Note - Subjective Observations Therapist faxed PCP, Sherri Waggoner MD, and referring physician, AYO Lopez, requesting referral to outpatient [facility] for this patient based on concerns re: memory and executive function deficits. Therapist to follow- up as appropriate. - - - -
--- NOTE | 2021-07-15 12:47 | OT.OP.TRT ---
Visit Care Team Role Provider Type Sherri Waggoner MD Family Provider Physician Primary Care Provider Specialty: Internal Medicine Address: [address] [place] [address], [address] Email: [email or web address] AYO Goodrich Attending Provider Non-Staff Referring Provider Specialty: Nursing Address: [address] [place] [address], [address] Email: Occupational Therapy Treatment Note OT Outpatient Treatment Note - Adult Start: 07/08/21 10:36 Freq: Status: Active Protocol: Document 07/15/21 12:30 AMS (Rec: 07/15/21 12:47 AMS [id number]) OT Outpatient Adult Treatment Note Session Time Visit Start Time 08:30 Visit Stop Time 09:25 Total Visit Minutes 55 Visit Information Visit Number 01/01; 01/10 => use KX modifier after visit ( visit) Plan of Care Dates 07/08/21-09/30/21 Insurance Information Medicare Setting Treatment Setting Outpatient Care Visit Type Note Type Treatment Note General Information General Information Patient is a 76 year-old right hand dominant male 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 - Subjective Identification Type Name Identification Reconciled With Medical Record Others Present Family Observations Miah was accompanied by his spouse to treatment session. 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 He has an appointment on to go over the results per spouse. Patient/Caregiver Compliance with Home Excellent Exercise Program Comment w/ family support - Objective Objective Measurements Please refer to below for progress towards established OT goals: 07/15/21 = Results of 9-Hole Peg Test. R = 33.2 sec; L = 28 .6 sec 07/15/21 = MMT testing Results. R sh flex 4+/5, L sh flex 5/5 . R sh ext 5/5, L sh ext 5/5. R sh add 5/5, L sh add 5/5. R sh abd 4+/5, L sh abd 5/5. R ER 4+/5, L ER 5/5. R IR 5/5, L IR 5/5. R sh hor abd 4+/5, L sh hor abd 5/5. R sh hor add 4 +/5, L sh hor add 5/5. R elbow flex 5/5, L elbow flex 5/5. R elbow ext 5/5, L elbow ext 5/ 5. Bilateral wrist flex, ext, RD 5/5. R wrist UD 4+/5, L wrist UD 5/5. Short Term Goals 1. Patient will present with improved visual scanning abilities; this will be evidenced by Miah's ability to correctly identify 95% of targets with TT based visual scanning tasks, as observed on 2 separate trials x 2 separate treatment sessions. GOALS MET Patient will engage in further standardized assessments with therapist in order to establish baseline. Real Time Operator Goals 1. Patient will be modified independent with execution of home exercise program with the support of family and friends utilizing provided written and visual instructions from therapist. - Treatment 2 Descriptor Visual scanning. Attention to R side of space. 1 Descriptor Standardized assessments. MMT. Visual memory component of MVPT-4. 9-Hole Peg Test. - Assessment Assessment of Improvement The 9-Hole Peg Test is a timed test in which 9 pegs are inserted and removed from 9 holes in the pegboard with each hand. It is an assessment that can be used to assess hand dexterity. Miah completed the test with his R hand in 33 .2 seconds and with his L hand in 28.6 seconds. This suggests decreased dexterity of dominant hand. MVPT-4: The Motor-Free Visual Perception Test (4th ed.) (MVPT-4) is an individually administered assessment of visual- perceptual skills. The MVPT-4 tasks provide information for five types of visual- perceptual abilities, including visual memory. Miah was able to correctly answer 8 out of 9 visual memory based items. Miah's performance suggests that his visual memory abilities are comparable to that of his peers. Further assessment of memory and cognition is recommended; recommend outpatient speech referral. MMT results indicate some muscular weakness (R sh flex, R sh abd, R sh ER, R sh hor abd and add, and R wrist UD). Slight hesitation and change in gait with forward walking pattern w/ head turn to right. Decreased ability to identify all differences with Find the Differences activity w/ 1 image presented in frontal plane and alternate image presented to the right. (+) compliance with home exercise program. Based on today's findings made recommendations for right head turn with movement, visual scanning w/ Find the Differences ( increased visual input), and FM tasks (albanian checkers/ cribbage). - Plan Therapy Recommendations Continue with Current Program, Advance per Rehabilitation Protocol Other Referrals d/t short term memory concerns
--- NOTE | 2021-07-23 15:43 | OT.OP.TRT ---
Visit Care Team Role Provider Type Sherri Waggoner MD Family Provider Physician Primary Care Provider Specialty: Internal Medicine Address: [address] [place] [address], [address] Email: [email or web address] AYO Goodrich Attending Provider Non-Staff Referring Provider Specialty: Nursing Address: [address] [place] [address], [address] Email: Occupational Therapy Treatment Note OT Outpatient Treatment Note - Adult Start: 07/08/21 10:36 Freq: Status: Active Protocol: Document 07/23/21 15:36 AMS (Rec: 07/23/21 15:43 AMS [id number]) OT Outpatient Adult Treatment Note Session Time Visit Start Time 10:30 Visit Stop Time 11:30 Total Visit Minutes 60 Visit Information Visit Number 02/01; 02/10 => use KX modifier after th visit (20th visit) Plan of Care Dates 07/08/21-09/30/21 Insurance Information Medicare Setting Treatment Setting Outpatient Care Visit Type Note Type Treatment Note General Information General Information Patient is a 76 year-old right hand dominant male 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 - Subjective Identification Type Name Identification Reconciled With Medical Record Others Present Family Observations Don was accompanied by his spouse to treatment session. They are going to do a radioactive tag for white blood cells to determine if infection is present in the heart per spouse. Patient/Caregiver Compliance with Home Excellent Exercise Program Comment w/ family support - Objective Objective Measurements Please refer to below for progress towards established OT goals: 07/15/21 = Results of 9-Hole Peg Test. R = 33.2 sec; L = 28 .6 sec 07/15/21 = MMT testing Results. R sh flex 4+/5, L sh flex 5/5 . R sh ext 5/5, L sh ext 5/5. R sh add 5/5, L sh add 5/5. R sh abd 4+/5, L sh abd 5/5. R ER 4+/5, L ER 5/5. R IR 5/5, L IR 5/5. R sh hor abd 4+/5, L sh hor abd 5/5. R sh hor add 4 +/5, L sh hor add 5/5. R elbow flex 5/5, L elbow flex 5/5. R elbow ext 5/5, L elbow ext 5/ 5. Bilateral wrist flex, ext, RD 5/5. R wrist UD 4+/5, L wrist UD 5/5. Short Term Goals 1. Patient will present with improved visual scanning abilities; this will be evidenced by Don's ability to correctly identify 95% of targets with TT based visual scanning tasks, as observed on 2 separate trials x 2 separate treatment sessions. GOALS MET Patient will engage in further standardized assessments with therapist in order to establish baseline. Retirement Goals 1. Patient will be modified independent with execution of home exercise program with the support of family and friends utilizing provided written and visual instructions from therapist. - Treatment 2 Descriptor Visual scanning. Attention to R side of space. 1 Descriptor Standardized assessments. MMT. Visual memory component of MVPT-4. 9-Hole Peg Test. - Assessment Assessment of Improvement (+) compliance with home exercise program w/ spouse support. Mild right sided neglect. Decreased ability to filter increased amounts of visual information. Errors with verbal directional identification w/ arrow visual scanning task combined with kinesthetic R UE activity w/ maneuvering over cones. Overall, good session. Progressing therapeutic activities/exercises; combining the following components divided attention, spatial awareness, visual scanning, and attention to the right side of space, within an activity. Recommend outpatient PHYSICIAN/OPHTHALMOLOGIST referral. Spouse to consult w/ physician on Wednesday and request referral. - Plan Therapy Recommendations Continue with Current Program, Advance per Rehabilitation Protocol
--- NOTE | 2021-07-29 15:33 | OT.OP.TRT ---
Visit Care Team Role Provider Type Sherri Waggoner MD Family Provider Physician Primary Care Provider Specialty: Internal Medicine Address: [address] [place] [address], [address] Email: [email or web address] AYO Goodrich Attending Provider Non-Staff Referring Provider Specialty: Nursing Address: [address] [place] [address], [address] Email: Occupational Therapy Treatment Note OT Outpatient Treatment Note - Adult Start: 07/08/21 10:36 Freq: Status: Active Protocol: Document 07/29/21 15:26 AMS (Rec: 07/29/21 15:33 AMS [id number]) OT Outpatient Adult Treatment Note Session Time Visit Start Time 09:30 Visit Stop Time 10:30 Total Visit Minutes 60 Visit Information Visit Number 03/03; 03/12 => use KX modifier after visit (20th visit) Plan of Care Dates 07/08/21-09/30/21 Insurance Information Medicare Setting Treatment Setting Outpatient Care Visit Type Note Type Treatment Note General Information General Information Patient is a 76 year-old right hand dominant male 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 - Subjective Identification Type Name Identification Reconciled With Medical Record Others Present Family Observations Don was accompanied by his spouse to treatment session. ( +) compliance with home exercise program. Patient/Caregiver Compliance with Home Excellent Exercise Program Comment w/ family support - Objective Objective Measurements Please refer to below for progress towards established OT goals: 07/15/21 = Results of 9-Hole Peg Test. R = 33.2 sec; L = 28 .6 sec 07/15/21 = MMT testing Results. R sh flex 4+/5, L sh flex 5/5 . R sh ext 5/5, L sh ext 5/5. R sh add 5/5, L sh add 5/5. R sh abd 4+/5, L sh abd 5/5. R ER 4+/5, L ER 5/5. R IR 5/5, L IR 5/5. R sh hor abd 4+/5, L sh hor abd 5/5. R sh hor add 4 +/5, L sh hor add 5/5. R elbow flex 5/5, L elbow flex 5/5. R elbow ext 5/5, L elbow ext 5/ 5. Bilateral wrist flex, ext, RD 5/5. R wrist UD 4+/5, L wrist UD 5/5. Short Term Goals 1. Patient will present with improved visual scanning abilities; this will be evidenced by Don's ability to correctly identify 95% of targets with TT based visual scanning tasks, as observed on 2 separate trials x 2 separate treatment sessions. GOALS MET Patient will engage in further standardized assessments with therapist in order to establish baseline. Director Career Services Goals 1. Patient will be modified independent with execution of home exercise program with the support of family and friends utilizing provided written and visual instructions from therapist. - Treatment 2 Descriptor Visual scanning. Attention to R side of space. - Assessment Assessment of Improvement (+) compliance with home exercise program w/ spouse support. Patient has referral for outpatient [facility]; will be scheduling evaluation post treatment session. Mild right sided neglect. Overall, good session with improving attention to right side of space and attention/use of the dominant right hand with task completion. - Plan Therapy Recommendations Continue with Current Program, Advance per Rehabilitation Protocol
--- NOTE | 2021-08-05 11:46 | OT.OP.TRT ---
Visit Care Team Role Provider Type Sherri Waggoner MD Family Provider Physician Primary Care Provider Specialty: Internal Medicine Address: [address] [place] [address], [id number] Email: [email or web address] Goodrich Attending Provider Non-Staff Referring Provider Specialty: Nursing Address: [address] [place] [address], [id number] Email: Occupational Therapy Treatment Note OT Outpatient Treatment Note - Adult Start: 07/08/21 10:36 Freq: Status: Active Protocol: Document 08/05/21 11:38 AMS (Rec: 08/05/21 11:46 AMS [id number]) OT Outpatient Adult Treatment Note Session Time Visit Start Time 09:30 Visit Stop Time 10:28 Total Visit Minutes 58 Visit Information Visit Number 04/03; 04/12 => use KX modifier after th visit (20th visit) Plan of Care Dates 07/08/21-09/30/21 Insurance Information Medicare Setting Treatment Setting Outpatient Care Visit Type Note Type Treatment Note General Information General Information Patient is a 76 year-old right hand dominant male 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 - Subjective Identification Type Name Identification Reconciled With Medical Record Others Present Family Observations Don was accompanied by his spouse to treatment session. ( +) compliance with home exercise program. His driller's offsider said that he has to have open heart surgery. They are still going to the WBC tag test tomorrow 08/06/21 per . Patient/Caregiver Compliance with Home Excellent Exercise Program Comment w/ family support - Objective Objective Measurements Please refer to below for progress towards established OT goals: 07/15/21 = Results of 9-Hole Peg Test. R = 33.2 sec; L = 28 .6 sec 07/15/21 = MMT testing Results. R sh flex 4+/5, L sh flex 5/5 . R sh ext 5/5, L sh ext 5/5. R sh add 5/5, L sh add 5/5. R sh abd 4+/5, L sh abd 5/5. R ER 4+/5, L ER 5/5. R IR 5/5, L IR 5/5. R sh hor abd 4+/5, L sh hor abd 5/5. R sh hor add 4 +/5, L sh hor add 5/5. R elbow flex 5/5, L elbow flex 5/5. R elbow ext 5/5, L elbow ext 5/ 5. Bilateral wrist flex, ext, RD 5/5. R wrist UD 4+/5, L wrist UD 5/5. Short Term Goals 1. Patient will present with improved visual scanning abilities; this will be evidenced by Don's ability to correctly identify 95% of targets with TT based visual scanning tasks, as observed on 2 separate trials x 2 separate treatment sessions. 08/05/21 = 97% accuracy w/ single line, number based, single item target GOALS MET Patient will engage in further standardized assessments with therapist in order to establish baseline. Correction Goals 1. Patient will be modified independent with execution of home exercise program with the support of family and friends utilizing provided written and visual instructions from therapist. - Treatment 2 Descriptor Visual scanning. Attention to R side of space. - Assessment Assessment of Improvement (+) compliance with home exercise program w/ spouse support. Improving accuracy with visual scanning tasks; 97 % accuracy with single number target x 13 lines. Initiated laser light visual scanning activity; decreased speed with completion of activity with head rotation to the right ( wall to the right). However, able to locate all targets with body facing wall and 90 degree turn. Instruction re: visual scanning for landmarks. Overall, good session with improving attention to right side of space and attention/ use of the dominant right hand with task completion. - Plan Therapy Recommendations Continue with Current Program, Advance per Rehabilitation Protocol
--- NOTE | 2021-08-12 11:48 | OT.OP.TRT ---
Visit Care Team Role Provider Type Sherri Waggoner MD Family Provider Physician Primary Care Provider Specialty: Internal Medicine Address: [address] [place] [address], [address] Email: [email or web address] AY[facility] Goodrich Attending Provider Non-Staff Referring Provider Specialty: Nursing Address: [address] [place] [address], [id number] Email: Occupational Therapy Treatment Note OT Outpatient Treatment Note - Adult Start: 07/08/21 10:36 Freq: Status: Active Protocol: Document 08/12/21 11:39 AMS (Rec: 08/12/21 11:47 AMS [id number]) OT Outpatient Adult Treatment Note Session Time Visit Start Time 09:30 Visit Stop Time 10:28 Total Visit Minutes 58 Visit Information Visit Number 05/03; 05/12 => use KX modifier after th visit (20th visit) Plan of Care Dates 07/08/21-09/30/21 Insurance Information Medicare Setting Treatment Setting Outpatient Care Visit Type Note Type Treatment Note General Information General Information Patient is a 76 year-old right hand dominant male 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 - Subjective Identification Type Name Identification Reconciled With Medical Record Others Present Family Observations Miah was accompanied by his spouse to treatment session. Decreased compliance with home exercise program over the last week d/t CHF and multiple medical appointments. Miah went to ER again on Wednesday for CHF; Lasix prescription was increased. Follow-up with histology supervisor this Wednesday. - Objective Objective Measurements Please refer to below for progress towards established OT goals: 07/15/21 = Results of 9-Hole Peg Test. R = 33.2 sec; L = 28 .6 sec 07/15/21 = MMT testing Results. R sh flex 4+/5, L sh flex 5/5 . R sh ext 5/5, L sh ext 5/5. R sh add 5/5, L sh add 5/5. R sh abd 4+/5, L sh abd 5/5. R ER 4+/5, L ER 5/5. R IR 5/5, L IR 5/5. R sh hor abd 4+/5, L sh hor abd 5/5. R sh hor add 4 +/5, L sh hor add 5/5. R elbow flex 5/5, L elbow flex 5/5. R elbow ext 5/5, L elbow ext 5/ 5. Bilateral wrist flex, ext, RD 5/5. R wrist UD 4+/5, L wrist UD 5/5. Short Term Goals 1. Patient will present with improved visual scanning abilities; this will be evidenced by Don's ability to correctly identify 95% of targets with TT based visual scanning tasks, as observed on 2 separate trials x 2 separate treatment sessions. 08/05/21 = 97% accuracy w/ single line, number based, single item target GOALS MET Patient will engage in further standardized assessments with therapist in order to establish baseline. Vulcanized Fiber Unit Operator Goals 1. Patient will be modified independent with execution of home exercise program with the support of family and friends utilizing provided written and visual instructions from therapist. - Treatment 2 Descriptor Visual scanning. Attention to R side of space. - Assessment Assessment of Improvement Decreased compliance with home exercise program over the past week. Decreased success with warm-up visual scanning task activity compared to previous treatment sessions; this may d/t decreased compliance with home exercise program and suggests that visual scanning strategies are not yet automatic. Thus, Don would benefit likely continue to benefit from focused practice on visual scanning. Verbally reviewed visual scanning for landmarks with mobility. Instruction on compensatory strategy for reading; instruction to visually scan to end of word prior to reading the word. Education re: technique can be beneficial with longer words and may be impacted by size of font/reading materials. Instruction re: visual scanning for landmarks. Was able to locate 11/15 words in large font word search; use of left --> right column scanning technique. Approached activity finding words versus looking at list of words --> then finding the specific word . Overall, good session. Home Exercise Program Practice visual scanning landmark/end of word techniques. Continue to use cards and bangladeshi solitaire marbles. Encourage use of dominant right hand and attending to upper quadrants of vision/turning head to attend to visual information to the right of the body. - Plan Therapy Recommendations Continue with Current Program, Advance per Rehabilitation Protocol
--- NOTE | 2021-08-19 11:49 | OT.OP.DC ---
Visit Care Team Role Provider Type Sherri Waggoner MD Family Provider Physician Primary Care Provider Address: [address] [place] [address], [address] Email: [email or web address] AY[facility] Goodrich Attending Provider Non-Staff Referring Provider Address: [address] [place] [address], [id number] Email: OT Outpatient OT Outpatient Adult Evaluation Start: 07/08/21 10:36 Freq: Status: Active Protocol: Document 07/08/21 10:37 AMS (Rec: 07/08/21 11:11 AMS [id number]) General Information Session Time Visit Start Time 08:30 Visit Stop Time 09:25 Total Visit Minutes 55 Visit Information Visit Number 11/03; 11/12; visit --> KX Modifier Plan of Care Dates 07/08/21-09/30/21 Insurance Information Medicare Setting Treatment Setting Outpatient Care Visit Type Note Type Initial Evaluation Identification Identification Confirmed Yes Identification Confirmed By Spouse Goals Treatment Treatment HEP development/Education. Eye -hand coordination w/ tennis ball to right of body seated and w/ playing catch; turning of head recommended at this time. Environmental modification to support attention to right side of space/rotation of head. Recommended practicing visual scanning with cards based activity via stacking in order /or game such as NoDaysOff. Spouse and patient denied questions. Short Term Goals Short Term Goals 1. Patient will engage in further standardized assessments with therapist in order to establish baseline. 2. Patient will present with improved visual scanning abilities; this will be evidenced by Don's ability to correctly identify 95% of targets with TT based visual scanning tasks, as observed on 2 separate trials x 2 separate treatment sessions. Fdc Goals Internal Investigator Goals 1. Patient will be modified independent with execution of home exercise program with the support of family and friends utilizing provided written and visual instructions from therapist. Assessment/Plan Assessment Treatment Assessment Patient is a 76 year-old right hand dominant male 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 Patient was accompanied by spouse to initial evaluation. Patient was reportedly hospitalized at [facility] June 11 to June 18 and d/c to home with assist from spouse. Small aneurysm of left occipital lobe and brain bleed found w/ MRI and CAT scans. 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 He is currently being followed by Infectious disease, Cardiology, and Neurology. He has an appointments next week to determine how to proceed ( will be having PET scan and Echo). Medical history is significant for artificial valve and pacemaker; lumbar laminectomies; bilateral CTR; CABG x 5; TAVR at . In addition, Miah had L eye cataract surgery in June of 2020; plan was to have R eye cataract surgery done this year. He has been given glasses for use post-cataract surgery, however, Miah reports discomfort given the differences between the 2 lenses and has not returned to reading since having cataract surgery. Miah would like to return to driving; discussed safety concerns re: visual deficits. Patient has appointment with neuro opthalmologist in October of 2021 d/t availability of physician. Patient denied pain /discomfort. QuickDASH UE Outcome Measure score = 2.27; QuickDASH Sports/Performing Arts Module Score = 50.00 ( golf). Score based on ability to engage in golfing recreationally. WFL w/ visual tracking; WFL w/ convergence; WFL w/ fixation; errors w/ visual saccade w/ 10 column task with out <-> inner matching of columns in singular row. Unaware of errors. Correctly identified 30 out of 40 items with 2 item visual scanning activity x 8 rows. Decreased insight into visual scanning difficulties. Able to complete visual saccade task seated w/ stationary and intentional transition between whiteboards in order of number based task w/ board positioned to right of body. Reported bumping into stationary items in the home per spouse located to the right; report of being startled by spouse when approached from the right. Decreased eye-hand coordination, reaction time to objects presenting from the right. Impaired opposition bilaterally with EO and EC. Impaired awareness bilaterally w/ eye-to-nose. Patient would likely benefit from outpatient OT to support Miah's ability to successfully engage in meaningful activities; impairments identified include vision, coordination, awareness/ functional problem solving. Recommend further assessment of fine motor abilities, ROM, bimanual coordination, and right UE strength. Recommend referral to outpatient CONVEYOR LINE BAKERY WORKER to address concerns related to short term memory deficits. Plan Comment 12 weeks Treatment Frequency Once a Week Therapeutic Contents Active Range of Motion, Adaptive Equipment Education, Client Education,Cognitive Skills Development,Functional Activities,Home Exercise Program,Education, Neurodevelopment Treatment, Neuromuscular Re-Education, Self-Care,Therapeutic Activities,Therapeutic Exercises Suggested Referrals Speech Therapy Other Suggested Referrals d/t short term memory concerns Sensory Assessment Sensory Profile2 Functional Wrist/Hand Scan Hand Side OT Outpatient Treatment Note - Adult Start: 07/08/21 10:36 Freq: Status: Active Protocol: Document 08/19/21 11:37 AMS (Rec: 08/19/21 11:48 AMS [id number]) OT Outpatient Adult Treatment Note Session Time Visit Start Time 09:30 Visit Stop Time 10:20 Total Visit Minutes 50 Visit Information Visit Number 06/03; 06/12 => use KX modifier after th visit (20th visit) Plan of Care Dates 07/08/21-09/30/21 Insurance Information Medicare Setting Treatment Setting Outpatient Care Visit Type Note Type Treatment Note General Information General Information Patient is a 76 year-old right hand dominant male 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 - Subjective Identification Type Name Identification Reconciled With Medical Record Others Present Family Observations Don was seen 1:1 for OT treatment session. Spouse was admitted into the ER in the ' wee hours of the night'. - Objective Objective Measurements Please refer to below for progress towards established OT goals: 07/15/21 = Results of 9-Hole Peg Test. R = 33.2 sec; L = 28 .6 sec 07/15/21 = MMT testing Results. R sh flex 4+/5, L sh flex 5/5 . R sh ext 5/5, L sh ext 5/5. R sh add 5/5, L sh add 5/5. R sh abd 4+/5, L sh abd 5/5. R ER 4+/5, L ER 5/5. R IR 5/5, L IR 5/5. R sh hor abd 4+/5, L sh hor abd 5/5. R sh hor add 4 +/5, L sh hor add 5/5. R elbow flex 5/5, L elbow flex 5/5. R elbow ext 5/5, L elbow ext 5/ 5. Bilateral wrist flex, ext, RD 5/5. R wrist UD 4+/5, L wrist UD 5/5. Short Term Goals GOALS MET Patient will engage in further standardized assessments with therapist in order to establish baseline. Correctly identified 95% of targets with TT based visual scanning tasks, as observed on 2 separate trials x 2 separate treatment sessions. 08/19/21 = Important to note that increased errors with visual scanning do occur when presented with increased number of targets/smaller font size/increased visual information presented Fdc Goals Modified independent with execution of home exercise program with the support of family and friends utilizing provided written and visual instructions from therapist. * MET 08/19/21 - Treatment 2 Descriptor Visual scanning. Attention to R side of space. - Assessment Assessment of Improvement Miah has met all established OT goals. He is modified independent with execution of home exercise program with the support of his . He has been instructed in visual scanning activities, use of landmarks to support navigation, and visual scanning to the end of the word prior to 'reading' it to support comprehension. Miah has not been spending much time reading since stroke; this may d/t need for cataract surgery of the right eye/discomfort with current glasses prescription (given that he had cataract surgery of the left eye). It has also been recommended that he hold off on cataract surgery of the right eye d/t that he is still 'considered to be in the acute healing phase since his stroke'. Therapist has recommended that he see a neuro opthalmologist. - Plan Therapy Recommendations Discharge from Occupational Therapy
== END 2021-09-04 12:45 ==
LOC: OT 09:30
PROVIDERS: Family Provider Internal Medicine; PCP Internal Medicine; Referring Provider Registered Nurse Psychiatric/Mental Health, Adult; Visit Provider Registered Nurse Psychiatric/Mental Health, Adult
DX: I61.9 Nontraumatic intracerebral hemorrhage, unspecified (principal); R27.8 Other lack of coordination
CPT/HCPCS: 97110; 97112; 97166; 97530

== ENCOUNTER → 2021-08-25 11:39 | Outpatient (CLI) | payer MEDICARE, OTHER, SELFPAY ==
[2021-03-07 13:01] VITALS: BMI 27.1
[2021-08-25 12:28] LABS: BUN Creatinine Ratio 22.3 (6-22); Blood Urea Nitrogen 23 mg/dL (9-20); Calcium 9.8 mg/dL (8.4-10.2); Carbon Dioxide 33 mmol/L (22-32); Chloride 97 mmol/L (98-107); Estimated Glomerular Filt Rate > 60.0 mL/min (>60); Glucose 95 mg/dL (80-110); HEMOLYSIS < 15 (0-50); Potassium 4.5 mmol/L (3.4-5.1); Sodium 139 mmol/L (137-145)
== END ==
PROVIDERS: Family Provider Internal Medicine; PCP Internal Medicine; Referring Provider Internal Medicine Cardiovascular Disease; Visit Provider Internal Medicine Cardiovascular Disease
DX: I10 Essential (primary) hypertension (principal)
CPT/HCPCS: 36415; 80048

== ENCOUNTER → 2021-08-27 14:54 | Outpatient (CLI) | payer MEDICARE, OTHER, SELFPAY ==
[2021-03-07 13:01] VITALS: BMI 27.1
--- NOTE | 2021-08-27 14:56 | DI.CT.S_ITS ---
PROCEDURE: CT ANGIO HEAD INDICATIONS: Nontraumatic intracerebral hemorrhage, unspecified TECHNIQUE: Precontrast 4.5 mm thick angled axial sections acquired from the foramen magnum to the vertex. After the administration of intravenous contrast, 1 mm thick sections acquired through the [place] of [place]. Postcontrast 4.5 mm thick sections then re-acquired from the foramen magnum to the vertex. 10 mm thick pchilrc-dhltghoin-pdsxmrugak (MIP) reformats were acquired of the central intracranial vasculature. For radiation dose reduction, the following was used: automated exposure control, adjustment of mA and/or kV according to patient size. COMPARISON: [facility], CT, CT ANGIO HEAD AND NECK, 06/11/2021, 11:36. [facility], CT, CT HEAD/BRAIN WO CON, 06/11/2021, 11:36. FINDINGS: Image quality: Mild streak artifact can be seen through the skull base. Anterior circulation: Intracranial internal carotid arteries demonstrate atherosclerotic calcification and irregularity, with approximately 50% narrowing seen on each side. The flow within the paired anterior cerebral arteries is normal and symmetric. The flow within the middle cerebral arteries is normal and symmetric. The anterior communicating artery is seen. No aneurysms are seen. Posterior circulation: Areas of focal calcification can be seen involving the V4 segments, with approximately 50% narrowing on the right and 30% narrowing on the left. There is no significant abnormality seen of the basilar artery. Flow within the posterior cerebral arteries is normal and symmetric. No aneurysms are seen. CSF spaces: Ventricles are normal in size and shape. Basal cisterns are patent. No extra-axial fluid collections. Brain: Focal volume loss with encephalomalacia can be seen involving the left occipital lobe, where a prior hemorrhagic infarction was seen. No recurrent hemorrhage is seen. No midline shift. No masses. Gamino-white matter interface appears intact. Skull and face: Calvarium and facial bones appear intact, without suspicious lesions. Sinuses: Visualized sinuses and mastoids are clear. IMPRESSION: Resolution of the previously seen left occipital hemorrhage, with a focal infarction with brain parenchymal volume loss and encephalomalacia now seen at this site. Stable calcification and focal narrowing seen involving the V4 segments. Dictated by: Yves John M.D. on 08/27/2021 at 15:44 Approved by: Yves John M.D. on 08/27/2021 at 15:49
== END ==
PROVIDERS: Family Provider Internal Medicine; PCP Internal Medicine; Referring Provider Nurse Practitioner; Visit Provider Nurse Practitioner
DX: I61.9 Nontraumatic intracerebral hemorrhage, unspecified (principal)
CPT/HCPCS: 70496

== ENCOUNTER → 2021-09-29 08:50 | Outpatient (CLI) | payer MEDICARE, OTHER, SELFPAY ==
[2021-03-07 13:01] VITALS: BMI 27.1
[2021-09-29 11:09] LABS: Cholesterol 139 mg/dL (140-199); HDL Cholesterol 29 mg/dL (40-60); LDL Cholesterol Calculated 76 mg/dL (<100); Triglycerides 172 mg/dL (35-150)
[2021-09-29 18:17] LABS: Hep C Virus Ab w/Reflex Quant NEGATIVE s/c (NEGATIVE)
== END ==
PROVIDERS: Family Provider Internal Medicine; PCP Internal Medicine; Referring Provider Internal Medicine; Visit Provider Internal Medicine
DX: E78.5 Hyperlipidemia, unspecified (principal); Z11.59 Encounter for screening for other viral diseases
CPT/HCPCS: 36415; 80061; 86803

== ENCOUNTER → 2021-11-13 09:07 | Outpatient (CLI) | payer MEDICARE, OTHER, SELFPAY ==
[2021-03-07 13:01] VITALS: BMI 27.1
[2021-11-13 10:14] LABS: HEMOLYSIS < 15 (0-50); Iron 80 ug/dL (49-181)
[2021-11-13 10:17] LABS: BUN Creatinine Ratio 21.6 (6-22); Blood Urea Nitrogen 25 mg/dL (9-20); Calcium 10.1 mg/dL (8.4-10.2); Carbon Dioxide 30 mmol/L (22-32); Chloride 104 mmol/L (98-107); Cholesterol 130 mg/dL (140-199); Estimated Glomerular Filt Rate > 60.0 mL/min (>60); Glucose 122 mg/dL (80-110); HDL Cholesterol 42 mg/dL (40-60); HEMOLYSIS < 15 (0-50); LDL Cholesterol Calculated 62 mg/dL (<100); Potassium 5.6 mmol/L (3.4-5.1); Sodium 142 mmol/L (137-145); Triglycerides 131 mg/dL (35-150)
[2021-11-13 10:24] LABS: Percent Iron Saturation 23 % (20-50); Total Iron Binding Capacity 343 ug/dL (261-462); Transferrin 270 mg/dL (206-381)
[2021-11-14 06:31] LABS: PSA Free % 21.8 % (.); PSA, Total 1.1 ng/mL (0.0-4.0)
== END ==
PROVIDERS: Family Provider Internal Medicine; PCP Internal Medicine; Referring Provider Internal Medicine Cardiovascular Disease; Visit Provider Internal Medicine Cardiovascular Disease
DX: E78.00 Pure hypercholesterolemia, unspecified (principal); D50.9 Iron deficiency anemia, unspecified; Z12.5 Encounter for screening for malignant neoplasm of prostate
CPT/HCPCS: 36415; 80048; 80061; 83540; 83550; 84153; 84154

== ENCOUNTER → 2022-03-27 09:26 | Outpatient (CLI) | payer MEDICARE, OTHER, SELFPAY ==
[2021-03-07 13:01] VITALS: BMI 27.1
[2022-03-27 10:39] LABS: BUN Creatinine Ratio 21.8 (6-22); Blood Urea Nitrogen 22 mg/dL (9-20); Calcium 9.3 mg/dL (8.4-10.2); Carbon Dioxide 28 mmol/L (22-32); Chloride 101 mmol/L (98-107); Estimated Glomerular Filt Rate > 60 mL/min (>60); Glucose 112 mg/dL (80-110); HEMOLYSIS 46 (0-50); Potassium 4.7 mmol/L (3.4-5.1); Sodium 140 mmol/L (137-145)
== END ==
PROVIDERS: Family Provider Internal Medicine; PCP Internal Medicine
DX: N18.9 Chronic kidney disease, unspecified (principal)
CPT/HCPCS: 36415; 80048

== ENCOUNTER → 2022-04-01 09:06 | Outpatient (CLI) | payer MEDICARE, OTHER, SELFPAY ==
[2021-03-07 13:01] VITALS: BMI 27.1
--- NOTE | 2022-04-01 | DI.CT.S_ITS ---
PROCEDURE: CT ANGIO HEAD AND NECK INDICATIONS: Cerebral aneurysm, nonruptured TECHNIQUE: Pre-contrast 4.5 mm thick sections acquired from the foramen magnum to the vertex. After the administration of intravenous contrast, 1 mm thick sections acquired from the aortic arch through the [place]. Post-contrast 4.5 mm thick sections then re-acquired from the foramen magnum to the vertex. For radiation dose reduction, the following was used: automated exposure control, adjustment of mA and/or kV according to patient size. COMPARISON: [facility], CT, CT ANGIO HEAD, 08/27/2021, 15:08. [facility], CT, CT ANGIO HEAD AND NECK, 06/11/2021, 11:36. FINDINGS: Image quality: Excellent. BRAIN: CSF spaces: Ventricles are normal in size and shape. Basal cisterns are patent. No extra-axial fluid collections. Brain: No midline shift. No intracranial bleeds or masses. Gamino-white matter interface appears intact. At the area of prior left occipital hemorrhage, there is now a small focal 4 mm calcification. Focal edema noted on the prior exam has resolved. Mild underlying atrophy and chronic ischemic change noted. Skull and face: Calvarium and facial bones appear intact, without suspicious lesions. Orbits appear normal. Sinuses: Sinuses and mastoids are clear. HEAD CT ANGIOGRAPHY: Anterior circulation: Arising from the right cavernous ICA, there is a focal saccular aneurysm oriented laterally with a 3.5 mm neck, 2.4 mm dome, and 2.4 mm dome to base. Bilateral cavernous ICA atherosclerotic vascular calcification present without significant stenosis. The flow within the paired anterior cerebral arteries is normal and symmetric. The flow within the middle cerebral arteries is normal and symmetric. The anterior communicating artery is seen. No aneurysms are seen. Posterior circulation: Intradural V4 vertebral arteries shows moderate stenosis on the right and no stenosis on the left. Normal basilar artery present. Flow within the posterior cerebral arteries is normal and symmetric. No aneurysms are seen. NECK CT ANGIOGRAPHY: Carotid system: The great vessels demonstrate a conventional anatomy as they arise from the aortic arch. The origins of the common carotid arteries appear patent. The common carotid arteries demonstrate normal caliber and courses. Atherosclerotic calcification both proximal internal carotid arteries noted without hemodynamically significant stenosis utilizing NASCET criteria. Posterior circulation: The origins of the vertebral arteries both appear widely patent. The more superior extracranial portions of both vertebral arteries also demonstrate normal courses and calibers. They join to form a normal appearing basilar artery. Soft tissues: Visualized neck soft tissues demonstrate no suspicious abnormalities. Bones: No suspicious bony lesions. Visualized cervical spine appears normally aligned. IMPRESSION: 1. Small calcification in the left occipital lobe at the site of prior edema and hemorrhage probably reflects underlying cavernous hemangioma. Consider follow-up MRI brain for further evaluation. 2. 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 Proximal ICA atherosclerotic calcification without stenosis utilizing NASCET criteria Approved by: Eliseo Rudolph M.D. on 04/01/2022 at 10:06
== END ==
PROVIDERS: Family Provider Internal Medicine; PCP Internal Medicine; Referring Provider Psychiatry & Neurology Vascular Neurology; Visit Provider Psychiatry & Neurology Vascular Neurology
DX: I67.1 Cerebral aneurysm, nonruptured (principal); I65.21 Occlusion and stenosis of right carotid artery; G93.89 Other specified disorders of brain
CPT/HCPCS: 70496; 70498; Q9967

== ENCOUNTER → 2022-04-17 08:26 | Outpatient (CLI) | payer MEDICARE, OTHER, SELFPAY ==
[2021-03-07 13:01] VITALS: BMI 27.1
--- NOTE | 2022-04-17 | DI.US.S_ITS ---
PROCEDURE: US ABDOMEN LIMITED INDICATIONS: FATTY (CHANGE OF) LIVER, NOT ELSEWHERE CLASSIFIED TECHNIQUE: Real-time focused scanning was performed of the abdomen, with image documentation. COMPARISON: None. FINDINGS: Liver is normal in size. Liver has mildly increased echogenicity. Multiple mobile stones are identified. 3 millimeter polyp is identified. Gallbladder wall measures 2.0 millimeters. No pericholecystic fluid. No sonographic Alanis sign. Visualized biliary tree is nondilated. Common hepatic duct measures 3.0 millimeters. Common bile duct obscured by bowel gas and cannot be evaluated. Pancreas is obscured by bowel gas and cannot be evaluated. IMPRESSION: Echogenic liver. Finding typically represents fatty infiltration; however, finding is nonspecific and correlation with clinical and laboratory findings is recommended to exclude other etiologies including hepatic cirrhosis. Cholelithiasis without sonographic evidence of cholecystitis. 3 millimeter gallbladder polyp. Recommend follow-up ultrasound in 1 year. Dictated by: Steff Carranza MD, PhD on 04/17/2022 at 11:13 Approved by: Steff Carranza MD, PhD on 04/17/2022 at 11:15
== END ==
PROVIDERS: Family Provider Internal Medicine; PCP Internal Medicine; Referring Provider Internal Medicine; Visit Provider Internal Medicine
DX: K76.0 Fatty (change of) liver, not elsewhere classified (principal); K82.4 Cholesterolosis of gallbladder
CPT/HCPCS: 76705

== ENCOUNTER → 2022-09-10 09:06 | Outpatient (CLI) | payer MEDICARE, OTHER, SELFPAY ==
[2021-03-07 13:01] VITALS: BMI 27.1
[2022-09-10 11:02] LABS: BUN Creatinine Ratio 15.9 (6-22); Blood Urea Nitrogen 18 mg/dL (9-20); Calcium 9.4 mg/dL (8.4-10.2); Carbon Dioxide 31 mmol/L (22-32); Chloride 101 mmol/L (98-107); Estimated Glomerular Filt Rate > 60 mL/min (>60); Glucose 115 mg/dL (80-110); HEMOLYSIS < 15 (0-50); Potassium 4.3 mmol/L (3.4-5.1); Sodium 141 mmol/L (137-145)
== END ==
PROVIDERS: PCP Internal Medicine; Referring Provider Internal Medicine Cardiovascular Disease; Visit Provider Internal Medicine Cardiovascular Disease
DX: I50.22 Chronic systolic (congestive) heart failure (principal)
CPT/HCPCS: 36415; 80048

== ENCOUNTER → 2022-10-29 10:10 | Outpatient (CLI) | payer MEDICARE, OTHER, SELFPAY ==
[2021-03-07 13:01] VITALS: BMI 27.1
[2022-10-29 11:04] LABS: Add Manual Diff / Slide Review NO; Basophils Absolute Auto 100 /uL (0-100); Basophils Percent Auto 0.8 % (0-2); Eosinophils Absolute Auto 100 /uL (0-450); Eosinophils Percent Auto 1.1 % (2-4); Hematocrit 45.7 % (41-53); Hemoglobin 15.6 g/dL (13.5-17.5); Lymphocytes Absolute Auto 1800 /uL (1100-4500); Lymphocytes Percent Auto 20.2 % (25-40); Mean Corpuscular Hemoglobin 31.1 PG (26-34); Mean Corpuscular Volume 91.5 fL (80-100); Monocytes Absolute Auto 1000 /uL (0-900); Monocytes Percent Auto 11.5 % (3-14); Neutrophils Absolute Auto 5900 /uL (1500-7000); Neutrophils Percent Auto 66.4 % (50-75); Platelet Count 149 X10^3/uL (150-400); Red Cell Distribution Width 15.4 % (11.6-14.8); White Blood Cell Count 8.8 X10^3/uL (4.5-11.0)
== END ==
PROVIDERS: PCP Internal Medicine; Referring Provider Nurse Practitioner; Visit Provider Nurse Practitioner
DX: I48.11 Longstanding persistent atrial fibrillation (principal)
CPT/HCPCS: 36415; 85025

== ENCOUNTER → 2024-04-14 07:51 | Outpatient (CLI) | payer MEDICARE, OTHER, SELFPAY ==
[2021-03-07 13:01] VITALS: BMI 27.1
[2024-04-14 08:27] LABS: Add Manual Diff / Slide Review NO; Basophils Absolute Auto 100 /uL (0-100); Basophils Percent Auto 0.9 % (0-2); Eosinophils Absolute Auto 100 /uL (0-450); Eosinophils Percent Auto 0.7 % (2-4); Hematocrit 45.7 % (41-53); Hemoglobin 15.6 g/dL (13.5-17.5); Lymphocytes Absolute Auto 1800 /uL (1100-4500); Lymphocytes Percent Auto 21.6 % (25-40); Mean Corpuscular HGB Conc 34.1 % (30-36); Mean Corpuscular Hemoglobin 32.5 PG (26-34); Mean Corpuscular Volume 95.3 fL (80-100); Monocytes Absolute Auto 900 /uL (0-900); Monocytes Percent Auto 10.8 % (3-14); Neutrophils Absolute Auto 5400 /uL (1500-7000); Platelet Count 148 X10^3/uL (150-400); Red Cell Distribution Width 14.2 % (11.6-14.8); White Blood Cell Count 8.2 X10^3/uL (4.5-11.0)
[2024-04-14 09:29] LABS: Alanine Aminotransferase 155 IU/L (<50); Albumin 4.7 g/dL (3.5-5.0); Albumin Globulin Ratio 1.8 (1.0-2.8); Alkaline Phosphatase 57 U/L (38-126); Aspartate Aminotransferase 78 IU/L (17-59); BUN Creatinine Ratio 18.5 (6-22); Blood Urea Nitrogen 20 mg/dL (9-20); Calcium 9.6 mg/dL (8.4-10.2); Carbon Dioxide 31 mmol/L (22-32); Chloride 105 mmol/L (98-107); Cholesterol 129 mg/dL (140-199); Estimated Glomerular Filt Rate > 60 mL/min (>60); Globulin 2.6 g/dL (1.7-4.1); Glucose 107 mg/dL (80-110); HDL Cholesterol 34 mg/dL (40-60); HEMOLYSIS < 15 (0-50); LDL Cholesterol Calculated 58 mg/dL (<100); Potassium 5.3 mmol/L (3.4-5.1); Sodium 141 mmol/L (137-145); Total Protein 7.3 g/dL (6.3-8.2); Triglycerides 187 mg/dL (35-150)
== END ==
LOC: LAB 07:52
PROVIDERS: PCP Internal Medicine; Referring Provider Nurse Practitioner; Visit Provider Nurse Practitioner
DX: E78.00 Pure hypercholesterolemia, unspecified (principal); I48.11 Longstanding persistent atrial fibrillation
CPT/HCPCS: 36415; 80053; 80061; 85025

== ENCOUNTER → 2024-05-10 10:03 | Outpatient (CLI) | payer OTHER, SELFPAY ==
[2021-03-07 13:01] VITALS: BMI 27.1
--- NOTE | 2024-05-10 10:04 | DI.US.S_ITS ---
PROCEDURE: US ABDOMEN LIMITED INDICATIONS: ABNORMAL LIVER FUNCTION ENZYMES TECHNIQUE: Real-time focused scanning was performed of the abdomen, with image documentation. COMPARISON: Located Within [facility], US, US ABDOMEN LIMITED, 04/17/2022, 8:44. FINDINGS: The liver demonstrates normal size. The liver demonstrates generalized mildly increased echogenicity. This decreases ultrasound sensitivity for detection of hepatic masses. No findings of gallstones or sludge are seen. The gallbladder wall is not thickened, measuring 3 mm or less. No specific pericholecystic fluid is seen. The sonographic Alanis sign is negative. There is no biliary dilatation, the common bile duct measures 4 mm. The pancreas is not seen, secondary to overlying bowel gas. IMPRESSION: The liver demonstrates mildly increased echogenicity. This finding is nonspecific, yet it is most commonly attributed to fatty infiltration. Dictated by: Yves John M.D. on 05/10/2024 at 10:57 Approved by: Yves John M.D. on 05/10/2024 at 10:58
== END ==
LOC: US 10:04
PROVIDERS: PCP Internal Medicine; Referring Provider Internal Medicine; Visit Provider Internal Medicine
DX: R74.8 Abnormal levels of other serum enzymes (principal)
CPT/HCPCS: 76705

== ENCOUNTER 2024-06-09 21:58 | Emergency (ER) | payer OTHER, SELFPAY ==
[2021-03-07 13:01] VITALS: BMI 27.1
--- NOTE | 2024-06-09 22:05 | ED.GENADULT ---
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 amoxicillin indefinitely, history of congestive heart failure, coronary artery disease, hypertension who presents today complaining of left foot pain localizing to the left 2nd toe with increasing redness, tenderness and swelling up to the dorsum of the foot. No fevers, chills, dyspnea. He 1st noticed tenderness this morning and but by the time they were getting ready to go to bed this evening was increasingly red swollen more painful and in light of prior history they felt that immediate evaluation was appropriate. He does not have diabetes he does not describe trauma to the toe of which he is aware he does not have noted peripheral neuropathy. Related Data Home Medications Medication Instructions Recorded Confirmed multivitamin 1 cap PO DAILY ##0 07/30/11 06/11/21 rosuvastatin 20 mg tablet (Crestor) 20 mg PO DAILY ##0 03/16/12 06/11/21 apixaban 5 mg tablet (Eliquis) 5 mg PO BID 08/21/19 06/11/21 lisinopril 10 mg tablet 10 mg PO BID 08/21/19 06/11/21 NITROGLYCERIN (#NITROSTAT) 0.4 mg sublingual PRN chest pain 08/22/19 06/11/21 magnesium 1 tab PO DAILY 08/22/19 06/11/21 furosemide 20 mg tablet (Lasix) 20 mg PO DAILY 06/18/20 06/11/21 metoprolol succinate 50 mg 50 mg PO DAILY 03/07/21 06/11/21 tablet,extended release 24 hr amoxicillin 500 mg capsule 500 mg PO TID Endocarditis 06/11/21 06/11/21 aspirin 81 mg tablet 81 mg PO DAILY 06/11/21 06/11/21 Previous Rx's Medication Instructions Recorded doxycycline hyclate 100 mg capsule 100 mg PO BID #20 caps 06/10/24 Allergies Allergy/AdvReac Type Severity Reaction Status Date / Time clopidogrel [From PLAVIX] Allergy Severe hosipitaliz Verified 04/18/21 10:06 ation procaine [PROCAINE] Allergy Mild NUMBNESS Verified 04/18/21 10:06 WILL NOT WEAR OFF PER PATIENT Review of Systems Review of Systems Narrative: Pertinent positive and negative findings as per HPI Patient History Medical History Atrial fibrillation CAD (coronary atherosclerotic disease) (07/30/11) Melanoma Other and unspecified hyperlipidemia (07/30/11) Unspecified essential hypertension (07/30/11) Weight loss Surgical History S/P TAVR (transcatheter aortic valve replacement) Stented coronary artery Social History household members: spouse Smoking Status: Former smoker alcohol intake: current Smoking Status: Former smoker alcohol intake frequency: a few times a week Substance Use Type: does not use Exam Initial Vital Signs Initial Vital Signs: Vital Signs Temperature 97.8 F 06/09/24 22:10 Pulse Rate 80 06/09/24 22:10 Respiratory Rate 18 06/09/24 22:10 Blood Pressure 187/80 H 06/09/24 22:10 Pulse Oximetry 97 06/09/24 22:10 Oxygen Delivery Method Room Air 06/09/24 22:10 General: Healthy appearing, in no acute distress. Able to give a complete and coherent history. Well-nourished well-developed HEENT: Moist mucous membranes, normal sclera with reactive pupils, Respiratory: Lungs are clear to auscultation, no wheezing no rales no rhonchi. Full and symmetrical air movement Cardiac: Regular rate and rhythm no murmurs no bruits Abdomen: Soft, nontender, good bowel tones, no flank pain Skin: No significant lower extremity edema is appreciated. Left 2nd toe is erythematous slightly tender the touch however he is quite ticklish. He has moderate onychodystrophy of all toenails. No obvious skin breakdown, wounds or drainage. There is minor erythema over the plantar surface of the foot and minor swelling over the dorsum of the foot. At this point there is no lymphangitic streaking. He does not have any inguinal adenopathy. Neurologic: Grossly neurologically intact with no obvious asymmetries or abnormalities Psych: Cooperative, appropriate insight and affect Course Orders Ordered: ED Orders 06/09/24 22:35 Complete Blood Count AUTO DIFF Stat Comprehensive Metabolic Panel Stat Lactate (Lactic Acid) Stat Lipase Stat NT-proBNP (BNP-Adult 18+) Stat 06/09/24 23:13 Blood Culture Stat Discontinued Medications Doxycycline Hyclate (Doxycycline Hyclate 100 Mg Tablet) 100 mg PO NOW ONE Stop: 06/09/24 22:20 Last Admin: 06/09/24 23:21 Dose: 100 mg Documented By: CLAIRE Vital Signs Vital signs: Vital Signs - 8 hr 06/09/24 22:10 Temperature 97.8 F Pulse Rate 80 Respiratory Rate 18 Blood Pressure 187/80 H Pulse Oximetry 97 Oxygen Delivery Method Room Air Medical Decision Making Lab Data 06/09/24 22:35 06/09/24 22:35 Labs: Lab Results 06/09/24 Range/Units 22:35 WBC 10.1 (4.5-11.0) X10^3/uL RBC 4.64 (4.5-5.9) X10^6/uL Hgb 15.2 (13.5-17.5) g/dL Hct 44.7 (41-53) % MCV 96.4 (80-100) fL MCH 32.7 (26-34) PG MCHC 33.9 (30-36) % RDW 15.0 H (11.6-14.8) % Plt Count 154 (150-400) X10^3/uL Neut % (Auto) 65.8 (50-75) % Lymph % (Auto) 20.3 L (25-40) % Mccreary % (Auto) 12.0 (3-14) % Eos % (Auto) 0.8 L (2-4) % Baso % (Auto) 1.1 (0-2) % Neut # (Auto) 6600 (8856-6673) /uL Lymph # (Auto) 2000 (7098-3853) /uL Mccreary # (Auto) 1200 H (0-900) /uL Eos # (Auto) 100 (0-450) /uL Baso # (Auto) 100 (0-100) /uL Sodium 139 (137-145) mmol/L Potassium 4.6 (3.4-5.1) mmol/L Chloride 107 (98-107) mmol/L Carbon Dioxide 23 (22-32) mmol/L BUN 27 H (9-20) mg/dL Creatinine 1.28 H (0.66-1.25) mg/dL Estimated GFR 56 L (>60) mL/min BUN/Creatinine Ratio 21.1 (6-22) Glucose 101 (80-110) mg/dL Lactate 1.2 (0.7-2.1) mmol/L Calcium 9.7 (8.4-10.2) mg/dL Total Bilirubin 0.7 (0.2-1.3) mg/dL AST 30 (17-59) IU/L ALT 45 (<50) IU/L Alkaline Phosphatase 54 (38-126) U/L NT-Pro-B Natriuret Pep 1320 H (<450) pg/mL Total Protein 7.2 (6.3-8.2) g/dL Albumin 4.5 (3.5-5.0) g/dL Globulin 2.7 (1.7-4.1) g/dL Albumin/Globulin Ratio 1.7 (1.0-2.8) Lipase 83 (23-300) U/L MDM Narrative Medical decision making narrative: CC: Left 2nd toe and foot pain increasing over 12 hours Complicating co-morbidities: Prior history of endocarditis, congestive heart failure, coronary artery disease, currently anticoagulated, hyperlipidemia Data collected from: patient Medical records reviewed: Multiple visits in March, April, May and July of 2021 regarding his heart failure and congestive heart failure as well as the endocarditis episodes reviewed Differential considered: Cellulitis starting at the 2nd toe, vascular occlusion, congestive heart failure, DVT, foreign body Exam documented above, pertinent findings include: Patient is alert and appropriate. Ticklish feet, tenderness around the left toe no obvious foreign body toe is swollen somewhat erythematous. The dorsum of the foot is swollen but he does not have swelling up into the calf. I do not suspect DVT. Lab Test results independently reviewed as above. Pertinent findings: CBC is unremarkable with white count at 10.1 and 65% neutrophils Chemistries show a slight bump in creatinine at 1.28 Minimally elevated BNP at 1320 Lactic acid is not elevated Treatments: Oral doxycycline Discussion: 79-year-old gentleman with increasing pain in his left foot localized to the 2nd toe. Erythema around the 2nd toe without obvious skin breakdown or abscess. No lymphangitic streaking. No signs of sepsis. Does appear to be developing a cellulitis of the left toe. Currently on amoxicillin for endocarditis prophylaxis. He is started on doxycycline in the emergency department we will have her continue for a 10 day course. Signs and symptoms of abscess, worsening cellulitis, sepsis and reasons to return to the emergency department are all clearly reviewed. Questions are answered at this point there was no evidence of life-threatening abnormality, no indication for additional workup or hospitalization. Questions are answered and he will be discharge. Discharge Plan Departure Patient Disposition: Home Clinical Impression: Cellulitis Qualifiers: Site of cellulitis: extremity Site of cellulitis of extremity: toe Laterality: left Qualified Code(s): L03.032 - Cellulitis of left toe Instructions: DI for Cellulitis -- Adult Activity Restrictions/Additional Instructions: Thank you for coming in today. I am glad that you came in early. You are developing cellulitis that is started with the 2nd toe on your left foot. I am not seeing underlying abscess, signs of sepsis, concerns with worsening swelling or vascular issues this evening You do need to complete 10 days of doxycycline. Prescription was electronically sent to [facility] in [place] Keeping the foot elevated in the 1st couple of days will help with overall healing. If it is getting worse, you are noticing red streaks going up her leg, the pain is increasing, your foot is more swollen, you are feeling that your heart is beating fast, your short of breath you are developing fevers or otherwise feeling unwell you do need to return to the ER Prescriptions: New doxycycline hyclate 100 mg capsule 100 mg PO BID Qty: 20 0RF No Action multivitamin Capsule 1 cap PO DAILY Qty: 0 rosuvastatin [Crestor] 20 MG tablet 20 mg PO DAILY Qty: 0 Eliquis 5 mg tablet 5 mg PO BID lisinopril 10 mg tablet 10 mg PO BID furosemide [Lasix] 20 mg Tablet 20 mg PO DAILY amoxicillin 500 mg capsule 500 mg PO TID Patient Comments: TAKE ONE CAPSULE BY MOUTH THREE TIMES DAILY aspirin 81 mg Tablet 81 mg PO DAILY magnesium 1 tab PO DAILY Patient Comments: otc NITROGLYCERIN (#NITROSTAT) 0.4 mg Sublingual PRN metoprolol succinate 50 mg Tablet Extended Release 24 Hr 50 mg PO DAILY Referrals: Sherri Waggoner MD [Primary Care Provider] - Stand Alone Forms: Patient Portal/API
[2024-06-09 22:10] VITALS: BP 187/80; PULSE 80; RESP 18; TEMP 36.6; O2SAT 97; BMI 28.1
[2024-06-09 22:50] LABS: Add Manual Diff / Slide Review NO; Basophils Absolute Auto 100 /uL (0-100); Basophils Percent Auto 1.1 % (0-2); Eosinophils Absolute Auto 100 /uL (0-450); Eosinophils Percent Auto 0.8 % (2-4); Hematocrit 44.7 % (41-53); Hemoglobin 15.2 g/dL (13.5-17.5); Lymphocytes Absolute Auto 2000 /uL (1100-4500); Lymphocytes Percent Auto 20.3 % (25-40); Mean Corpuscular HGB Conc 33.9 % (30-36); Mean Corpuscular Hemoglobin 32.7 PG (26-34); Mean Corpuscular Volume 96.4 fL (80-100); Monocytes Absolute Auto 1200 /uL (0-900); Neutrophils Absolute Auto 6600 /uL (1500-7000); Neutrophils Percent Auto 65.8 % (50-75); Platelet Count 154 X10^3/uL (150-400); Red Blood Cell Count 4.64 X10^6/uL (4.5-5.9); White Blood Cell Count 10.1 X10^3/uL (4.5-11.0)
[2024-06-09 23:01] LABS: Alanine Aminotransferase 45 IU/L (<50); Albumin 4.5 g/dL (3.5-5.0); Albumin Globulin Ratio 1.7 (1.0-2.8); Alkaline Phosphatase 54 U/L (38-126); Aspartate Aminotransferase 30 IU/L (17-59); BUN Creatinine Ratio 21.1 (6-22); Bilirubin Total 0.7 mg/dL (0.2-1.3); Blood Urea Nitrogen 27 mg/dL (9-20); Calcium 9.7 mg/dL (8.4-10.2); Carbon Dioxide 23 mmol/L (22-32); Chloride 107 mmol/L (98-107); Estimated Glomerular Filt Rate 56 mL/min (>60); Globulin 2.7 g/dL (1.7-4.1); Glucose 101 mg/dL (80-110); HEMOLYSIS 22 (0-50); Lipase 83 U/L (23-300); Potassium 4.6 mmol/L (3.4-5.1); Sodium 139 mmol/L (137-145); Total Protein 7.2 g/dL (6.3-8.2)
[2024-06-09 23:02] LABS: Lactate (Lactic Acid) 1.2 mmol/L (0.7-2.1)
[2024-06-09 23:10] LABS: NT-proBNP (BNP-Adult 18+) 1320 pg/mL (<450)
[2024-06-09] MEDS: DOXYCYCLINE HYCLATE 100 MG TABLET PO (23:21)
[2024-06-10 00:18] VITALS: BP 132/81; PULSE 89; RESP 16; O2SAT 98
== END 2024-06-10 00:30 | disposition home or self-care (01) ==
PROVIDERS: Emergency Provider Emergency Medicine; PCP Internal Medicine
DX: L03.032 Cellulitis of left toe (principal); Z79.01 Long term (current) use of anticoagulants; Z79.899 Other long term (current) drug therapy
CPT/HCPCS: 36415; 80053; 83605; 83690; 83880; 85025; 87040; 99283

== ENCOUNTER 2024-06-12 09:11 | Emergency (ER) | payer OTHER, SELFPAY ==
[2021-03-07 13:01] VITALS: BMI 27.1
[2024-06-12 09:12] VITALS: BP 106/73; PULSE 93; RESP 16; TEMP 37.1; O2SAT 99
--- NOTE | 2024-06-12 09:41 | ED.LOWEXIN ---
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 Complex cardiac history as relayed by , prior TAVR procedure 2018, ambulate procedure, pacer revision 2 years ago change to an AICD at [facility], about 3 years ago developed septicemia, February 2021 was on IV antibiotics, had improvement in vegetations, and is taking lifelong amoxicillin orally twice daily, on amoxicillin oral regimen for the last 2-1/2 years. He has had recent swelling to the left 2nd toe and great toe, despite chronic amoxicillin regimen, and on Wednesday was seen here, started on oral doxycycline. He has been taking the doxycycline antibiotic, the redness and swelling are decreasing. He does not feel feverish. He has not feel short of breath or had any chest pain. He feels like he is improving. He was unable to see his regular doctor today for a wound check, so came here. He is scheduled to see his regular doctor on in 3 more days. Related Data Home Medications Medication Instructions Recorded Confirmed multivitamin 1 cap PO DAILY ##0 07/30/11 06/11/21 rosuvastatin 20 mg tablet (Crestor) 20 mg PO DAILY ##0 03/16/12 06/11/21 apixaban 5 mg tablet (Eliquis) 5 mg PO BID 08/21/19 06/11/21 lisinopril 10 mg tablet 10 mg PO BID 08/21/19 06/11/21 NITROGLYCERIN (#NITROSTAT) 0.4 mg sublingual PRN chest pain 08/22/19 06/11/21 magnesium 1 tab PO DAILY 08/22/19 06/11/21 furosemide 20 mg tablet (Lasix) 20 mg PO DAILY 06/18/20 06/11/21 metoprolol succinate 50 mg 50 mg PO DAILY 03/07/21 06/11/21 tablet,extended release 24 hr amoxicillin 500 mg capsule 500 mg PO TID Endocarditis 06/11/21 06/11/21 aspirin 81 mg tablet 81 mg PO DAILY 06/11/21 06/11/21 Previous Rx's Medication Instructions Recorded doxycycline hyclate 100 mg capsule 100 mg PO BID #20 caps 06/10/24 Allergies Allergy/AdvReac Type Severity Reaction Status Date / Time clopidogrel [From PLAVIX] Allergy Severe Anaphylaxis Verified 06/12/24 09:43 procaine [PROCAINE] Allergy Mild NUMBNESS Verified 06/12/24 09:43 WILL NOT WEAR OFF PER PATIENT Review of Systems Review of Systems Narrative: see HPI Patient History Medical History Atrial fibrillation CAD (coronary atherosclerotic disease) (07/30/11) Melanoma Other and unspecified hyperlipidemia (07/30/11) Unspecified essential hypertension (07/30/11) Weight loss Surgical History S/P TAVR (transcatheter aortic valve replacement) Stented coronary artery Social History household members: spouse Smoking Status: Former smoker alcohol intake: current Smoking Status: Former smoker alcohol intake frequency: a few times a week Substance Use Type: does not use Exam Narrative Exam Narrative: GENERAL: Well-developed patient, in mild distress. HEAD: Atraumatic. Normocephalic. EYES: Pupils equal round and reactive. Extraocular motions intact. No scleral icterus. No injection or drainage. ENT: Nose without bleeding, purulent drainage. Throat without erythema, tonsillar hypertrophy or exudate. Airway patent. NECK: Trachea midline. Non tender CARDIOVASCULAR: Regular rate and rhythm without murmurs, gallops, or rubs. Well-healed sternal scar. RESPIRATORY: Clear to auscultation. Breath sounds equal bilaterally. No wheezes, rales, or rhonchi. GASTROINTESTINAL: Abdomen soft, non-tender, nondistended. EXTREMITIES: Swelling and redness left 2nd toe, less so in great toe, with some adjacent foot erythema, apparently this is significantly improving per patient and , a new doxycycline antibiotic. There is no streaking to the lower extremity cephalad to the calf or thigh. No weeping or fluid, no interdigital ulceration seems obvious. No edema or joint tenderness. BACK: Nontender without deformity or crepitance. No flank tenderness. NEURO: AOx3. SKIN: No rash or erythema of visible areas Initial Vital Signs Initial Vital Signs: Vital Signs Temperature 98.7 F 06/12/24 09:12 Pulse Rate 93 H 06/12/24 09:12 Respiratory Rate 16 06/12/24 09:12 Blood Pressure 106/73 06/12/24 09:12 Pulse Oximetry 99 06/12/24 09:12 Oxygen Delivery Method Room Air 06/12/24 09:12 Course Orders Ordered: ED Orders 06/12/24 09:37 CBC Auto Diff [Complete Blood Count AUTO DIFF] Stat CMP [Comprehensive Metabolic Panel] Stat CRP [C-Reactive Protein Quant] Stat ESR [Erythrocyte Sedimentation Rate] Stat Lactate (Lactic Acid) Stat 06/12/24 09:39 XR foot LT min 3V Stat Vital Signs Vital signs: Vital Signs - 8 hr 06/12/24 09:12 Temperature 98.7 F Pulse Rate 93 H Respiratory Rate 16 Blood Pressure 106/73 Pulse Oximetry 99 Oxygen Delivery Method Room Air MDM - Extremity Injury (Lower) Lab Data Attestation: I reviewed the patient's lab results. Discharge Plan Departure Patient Disposition: Home Clinical Impression: Cellulitis of foot, left Instructions: DI for Wound Infection Activity Restrictions/Additional Instructions: Recheck of left foot cellulitis, which is improving on day 3-4 of oral doxycycline new antibiotic prescribed from here on Wednesday visit. 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 You are not having any shortness of breath or chest discomfort. Your here for repeat check of the left foot cellulitis, as you could not be seen today by your regular provider, but we will see your regular provider in 3 more days on . Looks like you are making excellent progress, improved symptoms, decreased swelling. Continue using the doxycycline antibiotic, recheck wound with your regular doctor on as scheduled. Return to this/nearest emergency department for any change worsening symptoms or any concerns prior Prescriptions: No Action multivitamin Capsule 1 cap PO DAILY Qty: 0 rosuvastatin [Crestor] 20 MG tablet 20 mg PO DAILY Qty: 0 Eliquis 5 mg tablet 5 mg PO BID lisinopril 10 mg tablet 10 mg PO BID furosemide [Lasix] 20 mg Tablet 20 mg PO DAILY amoxicillin 500 mg capsule 500 mg PO TID Patient Comments: TAKE ONE CAPSULE BY MOUTH THREE TIMES DAILY aspirin 81 mg Tablet 81 mg PO DAILY doxycycline hyclate 100 mg capsule 100 mg PO BID Qty: 20 0RF magnesium 1 tab PO DAILY Patient Comments: otc NITROGLYCERIN (#NITROSTAT) 0.4 mg Sublingual PRN metoprolol succinate 50 mg Tablet Extended Release 24 Hr 50 mg PO DAILY Referrals: Sherri Waggoner MD [Primary Care Provider] - Stand Alone Forms: Patient Portal/API
--- NOTE | 2024-06-12 09:55 | PC.NURSE ---
Pt is improved after 48 hours but unable to get into PCP today. Has an appointment .
== END 2024-06-12 10:03 | disposition home or self-care (01) ==
PROVIDERS: Emergency Provider Emergency Medicine; PCP Internal Medicine
DX: L03.116 Cellulitis of left lower limb (principal); Z79.01 Long term (current) use of anticoagulants
CPT/HCPCS: 99281

== ENCOUNTER → 2024-12-07 08:22 | Outpatient (CLI) | payer OTHER, SELFPAY ==
[2021-03-07 13:01] VITALS: BMI 27.1
[2024-12-07 09:29] LABS: Alanine Aminotransferase 96 IU/L (<50); Albumin 4.8 g/dL (3.5-5.0); Alkaline Phosphatase 59 U/L (38-126); Aspartate Aminotransferase 66 IU/L (17-59); BUN Creatinine Ratio 17.9 (6-22); Blood Urea Nitrogen 20 mg/dL (9-20); Calcium 9.3 mg/dL (8.4-10.2); Carbon Dioxide 30 mmol/L (22-32); Chloride 102 mmol/L (98-107); Cholesterol 136 mg/dL (140-199); Estimated Glomerular Filt Rate > 60 mL/min (>60); Globulin 2.4 g/dL (1.7-4.1); Glucose 114 mg/dL (80-110); HDL Cholesterol 36 mg/dL (40-60); HEMOLYSIS < 15 (0-50); LDL Cholesterol Calculated 75 mg/dL (<100); Potassium 4.5 mmol/L (3.4-5.1); Sodium 139 mmol/L (137-145); Total Protein 7.2 g/dL (6.3-8.2); Triglycerides 127 mg/dL (35-150)
== END ==
PROVIDERS: PCP Internal Medicine; Referring Provider Internal Medicine Cardiovascular Disease; Visit Provider Internal Medicine Cardiovascular Disease
DX: I50.22 Chronic systolic (congestive) heart failure (principal); E78.5 Hyperlipidemia, unspecified
CPT/HCPCS: 36415; 80053; 80061; 83735

== ENCOUNTER → 2025-03-21 13:32 | Outpatient (CLI) | payer OTHER, SELFPAY ==
[2021-03-07 13:01] VITALS: BMI 27.1
--- NOTE | 2025-03-21 13:33 | DI.ECHO.S_ITS ---
[place] [facility]---------+ [facility] : : [address] : : [place] : : [id number] : : Phone: [phone] Echocardiogram Report + + :Name: MARI MATHEW Study Date: 03/21/2025 Height: 74.5 in: :[facility] ReadingLocation: Weight: 223 lb : : Gender: Male BSA: 2.3 m2 : :: 1945 Age: 79 yrs BP: 136/76 mmHg: :Reason For Study: S/P TAVR : :Ordering Physician: ANGÉLICA, : :BRANDIN Performed By: Antonieta Robison : :Referring: BRANDIN LINDSAY : + + Interpretation Summary The left ventricle is mildly dilated. The ejection fraction is estimated to be 40-45%. No significant change in LVEF. Hypokinetic basal to mid inferior wall as well as basal inferior posterior lateral wall. Compared to the prior exam, the left ventricular wall motion has not changed. The right ventricle is at the upper limits of normal in size. Right ventricular systolic function is mild to moderately reduced. No significant change. There is a pacemaker lead in the right ventricle. There is moderate mitral regurgitation. Compared to the prior echo study, there has been no change in the severity of mitral regurgitation. There is a bioprosthetic aortic valve. Thickened aortic cusps without any typical vegetation or thrombus. There is mild to moderate perivalvular regurgitation around the prosthetic aortic valve. No significant change in AI. The peak aortic velocity is 1.95 m/sec. Previously 1.67 m/s. The aortic valve mean gradient is 9 mmHg. There is mild tricuspid regurgitation. Compared to the prior echo exam, there has been no change in TR severity. The right ventricular systolic pressure is estimated to be at least 34 mmHg based on an estimated right atrial pressure of 3 mm Hg. Mild atherosclerotic plaque(s) in the aortic arch. Procedure: A two-dimensional transthoracic echocardiogram with color flow and Doppler was performed. The study quality was technically adequate. Comparison is made with the echocardiogram of 02/10/2024. The heart rate ranged between 78-99 bpm during the study. The patient has a paced rhythm. Left Ventricle: The left ventricle is mildly dilated. Left ventricular wall thickness is mildly increased. There is no thrombus. The ejection fraction is estimated to be 40-45%. There has been no significant change since the previous exam. Hypokinetic basal to mid inferior wall as well as basal inferior posterior lateral wall. Compared to the prior exam, the left ventricular wall motion has not changed. Diastolic function could not be accurately assessed due to paced rhythm. Right Ventricle: There is a pacemaker lead in the right ventricle. The right ventricle is at the upper limits of normal in size. Right ventricular systolic function is mild to moderately reduced. There has been no significant change since the previous study. Atria: The left atrium is severely dilated. There has been no significant change since the previous study. The right atrium is moderately dilated. There is no Doppler evidence for an interatrial shunt. Mitral Valve: There is mild mitral annular calcification. The mitral valve leaflets appear moderately thickened, but open well. Tented mitral leaflets. There is moderate mitral regurgitation. Compared to the prior echo study, there has been no change in the severity of mitral regurgitation. Aortic Valve: There is a bioprosthetic aortic valve. There is mild to moderate perivalvular regurgitation around the prosthetic aortic valve. The prosthetic aortic valve is well-seated. Thickened aortic cusps without any typical vegetation or thrombus. The peak aortic velocity is 1.95 m/sec. The aortic valve mean gradient is 9 mmHg. The calculated aortic valve area is 1.2 cm2. Tricuspid Valve: The tricuspid valve leaflets are thin and pliable. There is mild tricuspid regurgitation. The right ventricular systolic pressure is estimated to be at least 34 mmHg based on an estimated right atrial pressure of 3 mm Hg. Compared to the prior echo exam, there has been no change in TR severity. Pulmonic Valve: The pulmonic valve is not well visualized. There is trace pulmonic regurgitation. Great Vessels: The aortic root is normal size. The ascending aorta is at the upper limits of normal in size. Mild atherosclerotic plaque(s) in the aortic arch. The IVC is of normal diameter and collapses greater than 50% with a sniff. This suggests a low right atrial pressure of 3 mm Hg. Pericardium/ Pleura There is no pericardial effusion. There is no pleural effusion. MMode/2D Measurements & Calculations LVIDd: 6.2 cm LVOT diam: 2.0 cm LVIDs: 4.7 cm asc Aorta Diam: 3.9 cm FS: 24.1 % Ao Arch Diam (Prox Trans): 3.1 cm EPSS: 0.98 cm IVSd: 1.2 cm LVPWd: 0.97 cm LV shannon. diameter/BSA (cm/m^2): 2.7 LV sys. diameter/BSA (cm/m^2): 2.1 LA A2 area: 33.4 cm2 RA long axis: 6.8 cm LA A4 area: 31.4 cm2 RA area: 28.4 cm2 LA length (vol): 6.7 cm RA vol: 100.9 ml LA vol: 132.0 ml RA : 44.1 ml/m2 LA vol index: 57.7 ml/m2 IVC diam: 1.6 cm RVD1 (basal): 4.3 cm RVD2 (mid): 3.0 cm TAPSE: 1.4 cm Doppler Measurements & Calculations Ao V2 max: 195.3 cm/sec LVOT Max Mo: 69.4 cm/sec Ao V2 mean: 141.1 cm/sec LV V1 max P.9 mmHg Ao max P.7 mmHg LV V1 VTI: 12.5 cm Ao mean P.1 mmHg ECTOR(I,D): 1.1 cm2 Ao V2 VTI: 36.1 cm ECTOR(V,D): 1.2 cm2 sev ratio: 0.35 ECTOR indexed to BSA (cm^2/m^2): 0.49 MV E max mo: 69.5 cm/sec TR max mo: 276.5 cm/sec Med Peak E' Mo: 7.3 cm/sec TR max P.6 mmHg E/E' med: 9.5 PA V2 max: 107.4 cm/sec Lat Peak E' Mo: 5.1 cm/sec PA V2 mean: 76.0 cm/sec E/E' lat: 13.7 PA mean P.5 mmHg E/e' average: 11.6 PA pr(Accel): 45.6 mmHg MV dec time: 0.16 sec MR ERO: 0.27 cm2 MR PISA: 3.7 cm2 SV(LVOT): 40.8 ml MR flow rate: 138.7 cm3/sec MR PISA radius: 0.77 cm Reading Physician:12:[id number] PM
== END ==
PROVIDERS: PCP Internal Medicine; Referring Provider Internal Medicine Cardiovascular Disease; Visit Provider Internal Medicine Cardiovascular Disease
DX: I08.3 Combined rheumatic disorders of mitral, aortic and tricuspid valves (principal); I70.0 Atherosclerosis of aorta; Z95.2 Presence of prosthetic heart valve
CPT/HCPCS: 93306